=== PATIENT | female | born 1975 | race Caucasian/White ===

== ENCOUNTER 2020-12-30 13:50 | Emergency (ER) | payer OTHER, SELFPAY ==
[2020-12-30 14:04] VITALS: BP 116/75; PULSE 77; RESP 16; TEMP 36; O2SAT 99
--- NOTE | 2020-12-30 14:29 | ED.GENADULT ---
HPI - General Adult General Chief complaint: Urogenital-Female Stated complaint: uti Source: patient Mode of arrival: ambulatory Limitations: no limitations History of Present Illness HPI narrative: Plesant 45 y/o female. PMHx None reported. Presents to ED today with acute complaints of urinary frequency, urgency, and dysuria for the past 24 hours. She notes a history of UTI, and her manifestations feel very similar . No fever. No abdominal pain, flank pain, N/V. No vaginal discharge, pelvic pain, hematuria. Pt is without additional acute c/o illness upon exam. Related Data Allergies Allergy/AdvReac Type Severity Reaction Status Date / Time No Known Allergies Allergy Verified 12/30/20 14:11 Review of Systems Review of Systems: CONSTITUTIONAL: Denies fever, chills, sweats. EYES: Denies visual changes, redness, discharge. ENT: Denies rhinorrhea, congestion, sore throat, otalgia. CARDIOVASCULAR: Denies chest pain, palpitations, edema. RESPIRATORY: Denies dyspnea, wheezing, cough GASTROINTESTINAL: Denies abdominal pain, nausea, vomiting, diarrhea. GENITOURINARY: Positive dysuria and frequency. No hematuria, abnormal discharge SKIN: Denies rash or itching. MUSCULOSKELETAL: Denies acute back pain, joint pain, or myalgia. NEUROLOGIC: Denies numbness, or focal weakness. PSYCHIATRIC: Denies anxiety or depression. All systems reviewed & are unremarkable except as noted in HPI and below Exam Narrative: GENERAL: This is a well-nourished, well-developed adult, in no apparent distress. HEAD: normocephalic, atraumatic. EYES: PERRL. Sclera clear/white. EARS: External ears normal, auditory canals clear and without drainage, TMs normal. NOSE: External nose normal. Positive Rhinorrhea, no obstruction, nares patent. THROAT: Mucous membranes moist, posterior pharynx clear. No exudates. NECK: Neck supple, non-tender without lymphadenopathy, masses or thyromegaly. CARDIOVASCULAR: Regular rate and rhythm without murmurs, gallops, or rubs. RESPIRATORY: Clear to auscultation. Breath sounds equal bilaterally. No wheezes, rales, or rhonchi. GASTROINTESTINAL: Abdomen soft, non-tender, nondistended. Bowel sounds are active. No guarding. No CVA tenderness. SKIN: warm, intact with no suspicious lesions or rash, good texture and turgor. NEURO: Alert, active, and age appropriate. No focal neurologic deficits. EXTREMITIES: Negative. Course Vital Signs Vital signs: Vital Signs Temperature 36.0 C L 12/30/20 14:04 Pulse Rate 77 12/30/20 14:04 Respiratory Rate 16 12/30/20 14:04 Blood Pressure 116/75 12/30/20 14:04 Pulse Oximetry 99 12/30/20 14:04 Temperature 36.0 C L 12/30/20 14:04 Pulse Rate 77 12/30/20 14:04 Respiratory Rate 16 12/30/20 14:04 Blood Pressure 116/75 12/30/20 14:04 Pulse Oximetry 99 12/30/20 14:04 Medical Decision Making MDM Narrative Medical decision making narrative: -Urinary s/s for past 24 hours, noted history of UTI with similar issues. -Appears non-toxic. -Urine Dipstick positive for leukocytes, no gross hematuria. -Start Macrobid and Pyridium as directed, will send Urine for additional Cx. -PCP F/U 1 WK. -ER W/Emergent health status changes. Differential Diagnosis Differential Diagnosis: Differential Diagnosis: Consideration of the following conditions may be warranted for the presenting problem, they are not final diagnoses: Likely UTI, Cystitis, Nephrolithiasis, bacterial vaginosis, Nephritis, candidiasis, vaginitis, pyelonephritis, epididymitis, STD, or other. Vital Signs Vital Signs: Vital Signs Temperature 36.0 C L 12/30/20 14:04 Pulse Rate 77 12/30/20 14:04 Respiratory Rate 16 12/30/20 14:04 Blood Pressure 116/75 12/30/20 14:04 Pulse Oximetry 99 12/30/20 14:04 Temperature 36.0 C L 12/30/20 14:04 Pulse Rate 77 12/30/20 14:04 Respiratory Rate 16 12/30/20 14:04 Blood Pressure 116/75 12/30/20 14:04 Pulse Oximetry 99 12/30/20
== END 2020-12-30 14:31 | disposition home or self-care (01) ==
PROVIDERS: Emergency Provider Nurse Practitioner Adult Health
DX: N39.0 Urinary tract infection, site not specified (principal)
CPT/HCPCS: 81003; 87077; 87086; 87088; 87186; 99203; G0463

== ENCOUNTER 2021-07-16 15:52 | Emergency (ER) | payer OTHER, SELFPAY ==
[2021-07-16 16:09] VITALS: BP 117/83; PULSE 71; RESP 16; TEMP 36; O2SAT 100
--- NOTE | 2021-07-16 16:26 | ED.FEMALEGU ---
HPI - Female Genitourinary General Chief complaint: Urogenital-Female Stated complaint: Possible UTI Time Seen by Provider: 07/16/21 16:26 Source: patient Mode of arrival: ambulatory Limitations: no limitations History of Present Illness HPI Narrative: Heather Gonzalez is a 46 yo female with no PMH who come to express care with a couple bouts of frequency and burning that started today. She is leaving for [place] in the morning for work and wanted to be checked before she left Related Data Home Medications Medication Instructions Recorded Confirmed levonorgestrel [Mirena] See Rx Instructions .ROUTE .COMPLEX 07/16/21 07/16/21 Allergies Allergy/AdvReac Type Severity Reaction Status Date / Time No Known Allergies Allergy Verified 07/16/21 16:36 Review of Systems Review of Systems: CONSTITUTIONAL: Denies fever, chills, sweats. EYES: Denies visual changes, redness, discharge. ENT: Denies rhinorrhea, congestion, sore throat, otalgia. CARDIOVASCULAR: Denies chest pain, palpitations, edema. RESPIRATORY: Denies dyspnea, wheezing, cough GASTROINTESTINAL: Denies abdominal pain, nausea, vomiting, diarrhea. GENITOURINARY:Has dysuria, no hematuria, abnormal discharge SKIN: Denies rash or itching. NEUROLOGIC: Denies numbness, or focal weakness. PSYCHIATRIC: Denies anxiety or depression. PMFSH Past Medical History Medical History No acute medical problems Social History Social History (Updated 07/16/21 @ 16:31 by Zena Douglas CNP) Smoking status: Never smoker Alcohol intake: current Comments At time of signature, I agree with nursing past medical, surgical, social and family history. There is no relevant family history pertinent to the presenting complaint. Exam Narrative: GENERAL: This is a well-nourished, well-developed patient, in mild distress. HEAD: normocephalic, atraumatic. EYES: Sclera clear/white. Vision is grossly intact. EARS: External ears normal,. Hearing grossly intact. NOSE: External nose normal without nasal discharge, nares without redness, no rhinorrhea. THROAT: Mucous membranes x NECK: Neck supple, CARDIOVASCULAR: Regular rate and rhythm without murmurs, gallops, or rubs. RESPIRATORY: Clear to auscultation. Breath sounds equal bilaterally. No wheezes, rales, or rhonchi. GASTROINTESTINAL: Abdomen soft, SKIN: warm, intact with no suspicious lesions or rash, good texture and turgor. NEURO: awake, alert, and oriented to person, place and time. There were no obvious focal neurologic abnormalities. Steady gait EXTREMITIES: Normal range of motion. BACK: Nontender without deformity Course Course Emergency Course: Patient comes in complaining of dysuria that included frequency and some pressure that started today [place] negative but will treat for dysuria and started on Keflex 500 mg 1 twice daily x5 days Level of Care: Express Care Visit Vital Signs Vital signs: Vital Signs Temperature 96.8 F L 07/16/21 16:09 Pulse Rate 71 07/16/21 16:09 Respiratory Rate 16 07/16/21 16:09 Blood Pressure 117/83 07/16/21 16:09 Pulse Oximetry 100 07/16/21 16:09 Temperature 96.8 F L 07/16/21 16:09 Pulse Rate 71 07/16/21 16:09 Respiratory Rate 16 07/16/21 16:09 Blood Pressure 117/83 07/16/21 16:09 Pulse Oximetry 100 07/16/21 16:09 MDM - Female Genitourinary Differential Diagnosis Differential diagnosis: Likely urinary tract infection, cystitis and other Lab Data Labs: Urine Glucose Negative Reference Range: Negative Urine Bilirubin Negative Reference Range: Negative Urine Ketone Negative Reference Range: Negative Urine Specific [place] 1.025
== END 2021-07-16 16:35 | disposition home or self-care (01) ==
PROVIDERS: Emergency Provider Nurse Practitioner; PCP Nurse Practitioner
DX: R30.0 Dysuria (principal)
CPT/HCPCS: 81003; 99213; G0463

== ENCOUNTER 2022-06-06 14:04 | Emergency (ER) | payer OTHER, SELFPAY ==
[2022-06-06 14:17] VITALS: BP 149/74; PULSE 65; RESP 16; TEMP 36.4; O2SAT 98
--- NOTE | 2022-06-06 14:33 | ED.FEMALEGU ---
HPI - Female Genitourinary General Chief complaint: Urogenital-Female Stated complaint: uti symptoms Time Seen by Provider: 06/06/22 14:35 Source: patient, RN notes reviewed and old records reviewed Mode of arrival: ambulatory Limitations: no limitations History of Present Illness HPI Narrative: 46-year-old female who presents to Express Care with complaints urgency and frequency with urination over weekend which has progressed to include burning with urination. Patient states over the weekend she did take AZO for her symptoms. Patient is concerned for UTI she is leaving tomorrow for [place] for vacation.Patient reports that she has not had any fevers, chills or sweats, denies any nausea or vomiting. Patient reports past history of UTI's . Patient denies any CVA tenderness or any suprapubic pain. reports no concern for STD exposure. MD elicited complaint: UTI (symptoms) Pertinent past history: other (past UTI) Onset (ago): day(s) (3) Location of symptoms: perineum Related Data Home Medications Medication Instructions Recorded Confirmed levonorgestrel 21 mcg/24 hours (8 See Rx Instructions .Route .COMPLEX 07/16/21 06/06/22 yrs) 52 mg intrauterine device (Mirena) cetirizine 10 mg tablet 10 mg PO DAILY 06/06/22 06/06/22 Allergies Allergy/AdvReac Type Severity Reaction Status Date / Time No Known Allergies Allergy Verified 06/06/22 14:07 Review of Systems Review of Systems: CONSTITUTIONAL: Denies fever, chills, or sweats. CARDIOVASCULAR: Denies chest pain, palpitations, or edema. RESPIRATORY: Denies cough or dyspnea. GASTROINTESTINAL: Denies abdominal pain, nausea, vomiting, or diarrhea. GENITOURINARY: Reports dysuria, frequency, urgency. Denies flank pain or hematuria. SKIN: Denies rash or itching. MUSCULOSKELETAL: Denies back pain or myalgia. Denies CVA tenderness NEUROLOGIC: Denies headache All systems reviewed & are unremarkable except as noted in HPI and below PMFSH Past Medical History Medical History (Updated 06/06/22 @ 15:06 by Bhavani Mario NP) History of sinus problem Urinary tract infection Social History Social History (Updated 07/16/21 @ 16:31 by Zena Douglas, CONSUM[employer]IST) Smoking status: Never smoker Alcohol intake: current Comments At time of signature, agree with nursing past medical, surgical, social and family history. There is no relevant family history pertinent to the presenting complaint Exam Narrative: GENERAL: Well-appearing, well-nourished, and in no acute distress. HEAD: Normocephalic, atraumatic. NECK: Supple.no lymphadenopathy CHEST: Clear to auscultation. No respiratory distress.SAO2 98% on room air HEART: Regular rate and rhythm. No murmur heard. Normal peripheral pulses. ABDOMEN: Soft, nontender, nondistended, normal active bowel sounds. No CVA tenderness, denies any suprapubic pressure or pain, EXTREMITIES: Normal range of motion. No edema. SKIN: Warm, dry, no rash. NEURO: No focal deficits. Alert and oriented x3. Course Course Emergency Course: Patient is aware of diagnosis, understands and agrees to treatment plan.? Anticipatory guidance given.? Patient agrees to follow-up as directed and is aware of reasons to seek care at the emergency department. Portions of this record may have been created with voice recognition software Level of Care: Express Care Visit Vital Signs Vital signs: Vital Signs Temperature 36.4 C 06/06/22 14:17 Pulse Rate 65 06/06/22 14:17 Respiratory Rate 16 06/06/22 14:17 Blood Pressure 149/74 H 06/06/22 14:17 Pulse Oximetry 98 06/06/22 14:17 Oxygen Delivery Room Air 06/06/22 14:17 Temperature 36.4 C 06/06/22 14:17 Pulse Rate 65 06/06/22 14:17 Respiratory Rate 16 06/06/22 14:17 Blood Pressure 149/74 H 06/06/22 14:17 Pulse Oximetry 98 06/06/22 14:17 Oxygen Delivery Room Air 06/06/22 14:17 Reviewed MDM - Female Genitourinary MDM Narrative Medical decision making narrative: Exam f
== END 2022-06-06 14:54 | disposition home or self-care (01) ==
PROVIDERS: Emergency Provider Registered Nurse; PCP Nurse Practitioner
DX: N39.0 Urinary tract infection, site not specified (principal)
CPT/HCPCS: 81003; 87077; 87086; 87186; 99213; G0463

== ENCOUNTER 2022-11-30 17:10 | Emergency (ER) | payer OTHER, SELFPAY ==
[2022-11-30 17:27] VITALS: BP 120/80; PULSE 80; RESP 18; TEMP 36.6; O2SAT 100
--- NOTE | 2022-11-30 17:55 | ED.FEMALEGU ---
HPI - Female Genitourinary General Chief complaint: Urogenital-Female Stated complaint: uti symptoms Time Seen by Provider: 11/30/22 17:50 Source: patient and RN notes reviewed Mode of arrival: ambulatory Limitations: no limitations History of Present Illness HPI Narrative: Patient presents today complaining of dysuria, urgency, and malodorous urine that started this afternoon. Denies any additional symptoms to include abdominal pain, back pain. No recent antibiotic use. She has tried no [id number] treatment prior to arrival. Related Data Home Medications Medication Instructions Recorded Confirmed levonorgestrel 21 mcg/24 hours (8 See Rx Instructions .Route .COMPLEX 07/16/21 11/30/22 yrs) 52 mg intrauterine device (Mirena) Allergies Allergy/AdvReac Type Severity Reaction Status Date / Time No Known Allergies Allergy Verified 11/30/22 17:30 Review of Systems Review of Systems: CONSTITUTIONAL: Denies body aches, fever, chills, or sweats. EYES: Denies visual changes, redness, or discharge. ENT: Denies rhinorrhea, congestion, sore throat, or otalgia. CARDIOVASCULAR: Denies chest pain, palpitations, or edema. RESPIRATORY: Denies cough or dyspnea. GASTROINTESTINAL: Denies abdominal pain, nausea, vomiting, or diarrhea. GENITOURINARY: Denies hematuria.+ dysuria, urgency, malodorous urine SKIN: Denies rash, itching, or wounds. MUSCULOSKELETAL: Denies back pain, joint pain, or myalgia. NEUROLOGIC: Denies headache, numbness, tingling, or weakness. PSYCH: Denies depression or anxiety. [facility] Past Medical History Medical History History of sinus problem Urinary tract infection Social History Social History Smoking status: Never smoker Alcohol intake: current Comments At time of signature, I have reviewed and agree with nursing past medical, surgical, social and family history unless otherwise noted. Please see nursing chart for further information. There is no relevant family history pertinent to the presenting complaint Exam Narrative: GENERAL: Well-appearing, well-nourished, and in no acute distress. HEAD: Normocephalic, atraumatic. EYES: EOMI. No redness or drainage. Conjunctivae normal. ENT: Mucous membranes pink and moist. NECK: Normal AROM. CHEST: No respiratory distress. Clear to auscultation. HEART: Regular rate and rhythm. No murmur appreciated. ABDOMEN: Soft, nontender, nondistended, normal active bowel sounds. EXTREMITIES: Normal range of motion. No edema. SKIN: Warm, dry, no rash. Capillary refill normal. Normal skin turgor. NEURO: No focal deficits. Alert and oriented x3. Gait steady. PSYCH: Normal affect. No signs of depression or anxiety. Course Course Level of Care: Express Care Visit Vital Signs Vital signs: Vital Signs Temperature 97.9 F 11/30/22 17:27 Pulse Rate 80 11/30/22 17:27 Respiratory Rate 18 11/30/22 17:27 Blood Pressure 120/80 11/30/22 17:27 Pulse Oximetry 100 11/30/22 17:27 Oxygen Delivery Room Air 11/30/22 17:27 Temperature 97.9 F 11/30/22 17:27 Pulse Rate 80 11/30/22 17:27 Respiratory Rate 18 11/30/22 17:27 Blood Pressure 120/80 11/30/22 17:27 Pulse Oximetry 100 11/30/22 17:27 Oxygen Delivery Room Air 11/30/22 17:27 Reviewed MDM - Female Genitourinary MDM Narrative Medical decision making narrative: Urinalysis is suggestive of UTI. Will start patient on Keflex. Culture pending. Anticipatory guidance given Differential Diagnosis Differential diagnosis: Likely urinary tract infection, vaginitis and cystitis Lab Data Attestation: I reviewed the patient's lab results. Labs: Urine Glucose Negative Reference Range: Negative Urine Bilirubin Negative
== END 2022-11-30 18:00 | disposition home or self-care (01) ==
PROVIDERS: Emergency Provider Nurse Practitioner; PCP Nurse Practitioner
DX: N30.01 Acute cystitis with hematuria (principal)
CPT/HCPCS: 81003; 87077; 87086; 87186; 99213; G0463

== ENCOUNTER 2023-06-11 12:51 | Emergency (ER) | payer OTHER, SELFPAY ==
[2023-06-11 12:58] VITALS: BP 108/69; PULSE 91; RESP 16; TEMP 37.4; O2SAT 98
--- NOTE | 2023-06-11 13:00 | ED.URI ---
HPI - URI/Sore Throat General Chief Complaint: Upper Respiratory Infection Stated Complaint: Sore Throat and Cough Time Seen by Provider: 06/11/23 13:07 Source: patient, RN notes reviewed and old records reviewed Mode of arrival: ambulatory Limitations: no limitations History of Present Illness HPI Narrative: 47 year old female with complaints of cough and post nasal drainage for the past 11 days. Patient reports that cough is getting worse and she has some rib pain and also back pain with cough now. Patient reports that she has been taking Mucinex and also NyQuil for her symptoms. Patient reports history of past sinus infections and removal of sinus polyps and sinus surgery about 14 years ago. Patient denies any fevers no body aches or any nausea or vomiting or diarrhea. Patient denies any shortness of breath no tachypnea noted. MD elicited complaint: cough, rhinorrhea and nasal congestion Pertinent past history: sinusitis and other (sinus surgery) Onset (ago): day(s) (11) Consistency: constant Severity: moderate Pain scale (0-10): 4 Able to tolerate fluids by mouth: Yes Treatments prior to arrival: other (Mucinex and NyQuil) Related Data Home Medications Medication Instructions Recorded Confirmed levonorgestrel 21 mcg/24 hours (8 See Rx Instructions .Route .COMPLEX 07/16/21 06/11/23 yrs) 52 mg intrauterine device (Mirena) Allergies Allergy/AdvReac Type Severity Reaction Status Date / Time No Known Allergies Allergy Verified 06/11/23 12:53 Review of Systems Review of Systems: CONSTITUTIONAL: Denies malaise, chills, sweats, or fever. EYES: Denies visual changes, redness, or discharge. ENT: Reports rhinorrhea, congestion, sinus pain/pressure,no otalgia and some sore throat. CARDIOVASCULAR: Denies chest pain, palpitations, or edema.reports rib and back pain with cough RESPIRATORY: Reports cough.? Denies dyspnea. GASTROINTESTINAL: Denies abdominal pain, nausea, vomiting, diarrhea SKIN: Denies rash or itching. MUSCULOSKELETAL: Denies myalgia. NEUROLOGIC: Denies headache. All systems reviewed & are unremarkable except as noted in HPI and below PMFSH Past Medical History Medical History (Updated 06/12/23 @ 12:00 by Bhavani Mario NP) History of sinus problem Urinary tract infection Surgical History Surgical History (Updated 06/11/23 @ 13:33 by Bhavani Mario NP) H/O sinus surgery polyps removed and sinus cleaned out Social History Social History (Updated 06/12/23 @ 11:58 by Bhavani Mario NP) Smoking status: Never smoker Alcohol intake: current Substance use type: does not use Living arrangements: with family Gender identity (if verbalized by the patient): Female Comments At time of signature, agree with nursing past medical, surgical, social and family history. There is no relevant family history pertinent to the presenting complaint Exam Narrative: GENERAL: Well-appearing, well-nourished, and in no acute distress. HEAD: Normocephalic EYES: PERRLA, conjunctivae clear ENT: Nares clear, turbinates edematous and erythematous, clear discharge, facial pressure. Mucous membranes moist. TM pearly steel with dull light reflex bilaterally; no tragal tenderness. Oropharynx erythematous without lesions. Tonsils not enlarged and without exudate, no drooling, no hoarseness, no trismus, uvula midline. post nasal drainage NECK: Supple. No lymphadenopathy CHEST: rare wheeze noted but otherwise clear to auscultation, breath sounds equal. rare wheeze, no rhonchi, rales, or stridor. No respiratory distress, speaks in full sentences.cough,SAO2 98% on room air HEART: Regular rate and rhythm. No murmur heard. SKIN: Warm, dry, no rash. NEURO: Alert and oriented x3. PSYCH: Normal mood and affect Course Course Emergency Course: Patient is aware of diagnosis, understands and agrees to treatment plan.? Anticipatory guidance given.? Patient agrees to foll
== END 2023-06-11 13:21 | disposition home or self-care (01) ==
PROVIDERS: Emergency Provider Registered Nurse; PCP Nurse Practitioner
DX: J32.9 Chronic sinusitis, unspecified (principal); R05.9 Cough, unspecified
CPT/HCPCS: 99213; G0463

== ENCOUNTER 2023-09-09 15:36 | Emergency (ER) | payer OTHER, SELFPAY ==
--- NOTE | 2023-09-09 15:39 | ED.FEMALEGU ---
HPI - Female Genitourinary General Chief complaint: Urogenital-Female Stated complaint: Urogenital-Female Time Seen by Provider: 09/09/23 15:45 Source: patient and RN notes reviewed Mode of arrival: ambulatory Limitations: no limitations History of Present Illness HPI Narrative: 48-year-old female presents concern for dysuria, frequency, urgency for 2 days. Reports she took azo yesterday and this morning. She denies fever, body aches, chills, sweats, abdominal pain, nausea, vomiting, back pain. MD elicited complaint: UTI Related Data Home Medications Medication Instructions Recorded Confirmed levonorgestrel 21 mcg/24 hr (up to See Rx Instructions .Route .COMPLEX 07/16/21 09/09/23 8 years) 52 mg intrauterine device (Mirena) Allergies Allergy/AdvReac Type Severity Reaction Status Date / Time No Known Allergies Allergy Verified 09/09/23 15:37 Review of Systems Review of Systems: CONSTITUTIONAL: Denies malaise, chills, sweats, or fever. CARDIOVASCULAR: Denies chest pain, palpitations, or edema. RESPIRATORY: Denies cough or dyspnea. GASTROINTESTINAL: Denies abdominal pain, nausea, vomiting, diarrhea GENITOURINARY: Reports dysuria, frequency, urgency. Denies flank pain or hematuria. SKIN: Denies rash or itching. MUSCULOSKELETAL: Denies back pain or myalgia. All systems reviewed & are unremarkable except as noted in HPI and below PMFSH Past Medical History Medical History (Updated 09/09/23 @ 15:54 by Mary Nuñez NP) History of sinus problem Urinary tract infection Surgical History Surgical History (Updated 06/11/23 @ 13:33 by Bhavani Mario NP) H/O sinus surgery polyps removed and sinus cleaned out Social History Social History (Updated 06/12/23 @ 11:58 by Bhavani Mario NP) Smoking status: Never smoker Alcohol intake: current Substance use type: does not use Living arrangements: with family Gender identity (if verbalized by the patient): Female Comments At time of signature, agree with nursing past medical, surgical, social and family history. There is no relevant family history pertinent to the presenting complaint Exam Narrative: GENERAL: Well-appearing, well-nourished, and in no acute distress. HEAD: Normocephalic. EYES: PERRLA, conjunctivae clear. NECK: Supple. No lymphadenopathy CHEST: Clear to auscultation. No respiratory distress. HEART: Regular rate and rhythm. ABDOMEN: Soft, nontender upon palpation, nondistended, normal active bowel sounds, no palpable or pulsatile masses, no guarding. No CVA tenderness SKIN: Warm, dry, no rash. NEURO: Alert and oriented x3. PSYCH: Normal mood and affect Course Course Emergency Course: Patient is aware of diagnosis, understands and agrees to treatment plan. Anticipatory guidance given. Patient agrees to follow-up as directed and is aware of reasons to seek care at the emergency department. Portions of this record may have been created with voice recognition software Level of Care: Express Care Visit Vital Signs Vital signs: Reviewed. MDM - Female Genitourinary MDM Narrative Medical decision making narrative: Exam findings and UA show no acute concerns or changes; patient is non-toxic appearing and is in no distress. Patient is appropriate for outpatient treatment and follow-up. Differential Diagnosis Differential diagnosis: Likely urinary tract infection and cystitis Critical Care Time Critical Care Time Critical Care Time: No Discharge Plan Discharge Clinical Impression: Symptoms of urinary tract infection Patient Disposition: Home, Self-Care Condition: Stable Instructions: Antibiotic Form, Urinary Tract Infection in Women (ED) Additional Instructions: We will send a urine culture to the lab; if the culture identifies an organism that the prescribed antibiotic will not treat, you will receive a phone call from an urgent care staff member and an appropriate antibiotic will be pres
[2023-09-09 15:43] VITALS: BP 136/90; PULSE 66; RESP 16; TEMP 36.9; O2SAT 100
== END 2023-09-09 15:55 | disposition home or self-care (01) ==
PROVIDERS: Emergency Provider Nurse Practitioner; PCP Nurse Practitioner
DX: R30.0 Dysuria (principal); R35.0 Frequency of micturition; R39.15 Urgency of urination
CPT/HCPCS: 81003; 87077; 87086; 87088; 87186; 99213; G0463

== ENCOUNTER 2023-10-23 13:08 | Emergency (ER) | payer OTHER, SELFPAY ==
[2023-10-23 13:23] VITALS: BP 123/85; PULSE 78; RESP 16; TEMP 36.9; O2SAT 96
--- NOTE | 2023-10-23 13:37 | ED.FEMALEGU ---
HPI - Female Genitourinary General Chief complaint: Urogenital-Female Stated complaint: uti symptoms Source: patient and RN notes reviewed Mode of arrival: ambulatory Limitations: no limitations History of Present Illness HPI Narrative: 48 y/o female presented for c/o burning with urination today, and reports odor and urgency x2 days. Took uqora. Denies hematuria, nausea, vomiting, abdominal pain, flank pain, constipation, diarrhea, fevers or chills. Related Data Home Medications Medication Instructions Recorded Confirmed levonorgestrel 21 mcg/24 hr (up to See Rx Instructions .Route .COMPLEX 07/16/21 10/23/23 8 years) 52 mg intrauterine device (Mirena) Allergies Allergy/AdvReac Type Severity Reaction Status Date / Time No Known Allergies Allergy Verified 10/23/23 13:31 Review of Systems Review of Systems: CONSTITUTIONAL: Denies body aches, fever, chills, or sweats. CARDIOVASCULAR: Denies chest pain, palpitations, or edema. RESPIRATORY: Denies cough or dyspnea. GASTROINTESTINAL: Denies abdominal pain, nausea, vomiting, or diarrhea. GENITOURINARY: Reports dysuria, frequency, urgency, denies hematuria, flank pain SKIN: Denies rash, itching, or wounds. MUSCULOSKELETAL: Denies back pain or myalgia. [facility] Past Medical History Medical History History of sinus problem Urinary tract infection Surgical History Surgical History H/O sinus surgery polyps removed and sinus cleaned out Social History Social History Smoking status: Never smoker Alcohol intake: current Substance use type: does not use Living arrangements: with family Gender identity (if verbalized by the patient): Female Comments At time of signature, I have reviewed and agree with nursing past medical, surgical, social and family history unless otherwise noted. Please see nursing chart for further information. There is no relevant family history pertinent to the presenting complaint Exam Narrative: GENERAL: Well-appearing ENT: Mucous membranes pink and moist. NECK: Normal AROM. Supple. CHEST: No respiratory distress. Clear to auscultation. HEART: Regular rate and rhythm. ABDOMEN: Soft, nontender, nondistended, normal active bowel sounds. No CVA tenderness MUSCULOSKELETAL: No bony tenderness. SKIN: Warm, dry, no rash. NEURO: No focal deficits. Alert and oriented x3. Gait steady. PSYCH: Normal affect. Course Course Emergency Course: Patient is aware of diagnosis, understands and agrees to treatment plan. Anticipatory guidance given. Patient agrees to follow-up as directed and is aware of reasons to seek care at the emergency department. Portions of this record may have been created with voice recognition software Level of Care: Express Care Visit Vital Signs Vital signs: Vital Signs Temperature 98.4 F 10/23/23 13:23 Pulse Rate 78 10/23/23 13:23 Respiratory Rate 16 10/23/23 13:23 Blood Pressure 123/85 10/23/23 13:23 Pulse Oximetry 96 10/23/23 13:23 Oxygen Delivery Room Air 10/23/23 13:23 Temperature 98.4 F 10/23/23 13:23 Pulse Rate 78 10/23/23 13:23 Respiratory Rate 16 10/23/23 13:23 Blood Pressure 123/85 10/23/23 13:23 Pulse Oximetry 96 10/23/23 13:23 Oxygen Delivery Room Air 10/23/23 13:23 Reviewed MDM - Female Genitourinary MDM Narrative Medical decision making narrative: Discussed physical exam findings. Advised supportive measures and signs/symptoms to go to the ER. Pt is appropriate for outpt treatment and f/u. Differential Diagnosis Differential diagnosis: Likely urinary tract infection, vaginitis and cystitis Lab Data Labs: Lab Results 10/23/23 Range/Units 13:38 POC Urine Color Yellow POC Urine Clarity Cloudy POC Urine pH 7.5 POC Ur Specif [place] 1
[2023-10-23 13:44] LABS: EDUAAPPEAR Cloudy; EDUABILI Negative; EDUABLOOD Trace; EDUACOLOR1 Yellow; EDUAGLUCOSE Negative; EDUAKETONE Negative; EDUALEUKO 1+; EDUANITRATE Negative; EDUAPH 7.5; EDUAPROTEIN Negative; EDUASPGRAVITY 1.015; EDUAUROBILI 0.2
== END 2023-10-23 13:57 | disposition home or self-care (01) ==
PROVIDERS: Emergency Provider Nurse Practitioner Family; PCP Nurse Practitioner
DX: R30.0 Dysuria (principal)
CPT/HCPCS: 81003; 87077; 87086; 87186; 99213; G0463

== ENCOUNTER 2024-02-25 14:35 | Emergency (ER) | payer OTHER, SELFPAY ==
[2024-02-25 14:47] VITALS: BP 119/76; PULSE 77; RESP 18; TEMP 36.5; O2SAT 98
[2024-02-25 14:51] VITALS: BP 119/76; PULSE 77; RESP 18; TEMP 36.5; O2SAT 98
[2024-02-25 14:55] LABS: EDUAAPPEAR Cloudy; EDUABILI Negative (Negative); EDUABLOOD Trace (Negative); EDUACOLOR1 Yellow; EDUAGLUCOSE Negative (Negative); EDUAKETONE Negative (Negative); EDUALEUKO 3+ (Negative); EDUANITRATE Negative (Negative); EDUAPROTEIN 2+ (Negative); EDUAUROBILI 0.2
--- NOTE | 2024-02-25 14:57 | ED_ITS ---
HPI - Female Genitourinary General Chief complaint: Urogenital-Female Stated complaint: uti symptoms Time Seen by Provider: 02/25/24 14:53 Source: patient and RN notes reviewed Mode of arrival: ambulatory Limitations: no limitations History of Present Illness HPI Narrative: Patient presents today complaining of cloudy urine and dysuria that started this morning. Denies any additional symptoms to include fever, abdominal or back pain, hematuria. History of UTI. Review of previous urine culture shows E coli without resistance. Related Data Home Medications Medication Instructions Recorded Confirmed levonorgestrel 21 mcg/24 hr (up to See Rx Instructions .Route .COMPLEX 07/16/21 02/25/24 8 years) 52 mg intrauterine device (Mirena) multivit with minerals-iron 18 1 tablet PO DAILY 02/25/24 02/25/24 mg-folic ac 400 mcg-vit K 25 mcg tablet (Adults Multivitamin) progesterone micronized 100 mg 100 mg PO QAM 02/25/24 02/25/24 capsule testosterone 50 mg/5 gram (1 %) 1 tube transdermal QAM 02/25/24 02/25/24 transdermal gel Allergies Allergy/AdvReac Type Severity Reaction Status Date / Time No Known Allergies Allergy Verified 02/25/24 14:49 Review of Systems Review of Systems: CONSTITUTIONAL: Denies body aches, fever, chills, or sweats. EYES: Denies visual changes, redness, or discharge. ENT: Denies rhinorrhea, congestion, sore throat, or otalgia. CARDIOVASCULAR: Denies chest pain, palpitations, or edema. RESPIRATORY: Denies cough or dyspnea. GASTROINTESTINAL: Denies abdominal pain, nausea, vomiting, or diarrhea. GENITOURINARY: + dysuria, cloudy urine SKIN: Denies rash, itching, or wounds. MUSCULOSKELETAL: Denies back pain, joint pain, or myalgia. NEUROLOGIC: Denies headache, numbness, tingling, or weakness. PSYCH: Denies depression or anxiety. [facility] Past Medical History Medical History History of sinus problem Urinary tract infection Surgical History Surgical History H/O sinus surgery polyps removed and sinus cleaned out Social History Social History Smoking status: Never smoker Alcohol intake: current Substance use type: does not use Living arrangements: with family Gender identity (if verbalized by the patient): Female Comments At time of signature, I have reviewed and agree with nursing past medical, surgical, social and family history unless otherwise noted. Please see nursing chart for further information. There is no relevant family history pertinent to the presenting complaint Exam Narrative: GENERAL: Well-appearing, well-nourished, and in no acute distress. HEAD: Normocephalic, atraumatic. EYES: EOMI. No redness or drainage. Conjunctivae normal. ENT: Mucous membranes pink and moist. NECK: Normal AROM. CHEST: No respiratory distress. Clear to auscultation. HEART: Regular rate and rhythm. No murmur appreciated. ABDOMEN: Soft, nontender, nondistended, normal active bowel sounds. EXTREMITIES: Normal range of motion. No edema. SKIN: Warm, dry, no rash. Capillary refill normal. Normal skin turgor. NEURO: No focal deficits. Alert and oriented x3. Gait steady. PSYCH: Normal affect. No signs of depression or anxiety. Course Course Level of Care: Express Care Visit Vital Signs Vital signs: Vital Signs Temperature 97.7 F 02/25/24 14:47 Pulse Rate 77 02/25/24 14:47 Respiratory Rate 18 02/25/24 14:47 Blood Pressure 119/76 02/25/24 14:47 Pulse Oximetry 98 02/25/24 14:47 Oxygen Delivery Room Air 02/25/24 14:47 Temperature 97.7 F 02/25/24 14:51 Pulse Rate 77 02/25/24 14:51 Respiratory Rate 18 02/25/24 14:51 Blood Pressure 119/76 02/25/24 14:51 Pulse Oximetry 98 02/25/24 14:51 Oxygen Delivery Room Air 02/25/24 14:51 Reviewed MDM - Female Genitourinary MDM Narrative Medical decision making narrative: Urinalysis is consistent with UTI. Culture pending. Prescription for Augmentin and Pyridium sent to pharmacy. Anticipatory guidance given. ED precautions given Differential Diagnosis Differential diagnosis: Likely urinary tract infection, vaginitis and cystitis Lab Data Attestation: I reviewed the patient's lab results. Labs: Lab Results 02/25/24 Range/Units 14:53 POC Urine Color Yellow POC Urine Clarity Cloudy POC Urine pH 6.0 POC Ur Specif [place] 1.030 POC Urine Protein 2+ (Negative) POC Ur Glucose (UA) Negative (Negative) POC Urine Ketones Negative (Negative) POC Urine Blood Trace (Negative) POC Urine Nitrite Negative (Negative) POC Urine Bilirubin Negative (Negative) POC Urine Urobilinogen 0.2 POC U Leukocyte Esteras 3+ (Negative) Critical Care Time Critical Care Time Critical Care Time: No Discharge Plan Discharge Clinical Impression: Urinary tract infection Qualifiers: Urinary tract infection type: acute cystitis Hematuria presence: with hematuria Qualified Code(s): N30.01 - Acute cystitis with hematuria Patient Disposition: Home, Self-Care Condition: Stable Instructions: Antibiotic Form, Urinary Tract Infection in Women (DC) Additional Instructions: Your urine shows infection today. Take Augmentin as prescribed until gone. Your urine will be sent of for a culture to identify what type of bacteria is causing your infection. If the culture shows that your medication will not get rid of your infection, you will be notified and a new antibiotic will be called in for you. If your symptoms worsen to include fever, sweats, chills, nausea, vomiting, severe abdominal or back pain, please go to the ER for further evaluation. Prescriptions: New amoxicillin-pot clavulanate 875-125 mg tablet 1 tablet PO Q12H 7 Days Qty: 14 0RF phenazopyridine [Pyridium] 200 mg tablet 200 mg PO TID PRN (Reason: pain) Qty: 6 0RF No Action Mirena 20 mcg/24 hours (7 yrs) 52 mg Intrauterine Device See Rx Instructions .ROUTE .COMPLEX Rx Instructions: intrauterinely progesterone micronized 100 mg Capsule 100 mg PO QAM Rx Instructions: off 7 days; repeat cycle Adults Multivitamin 18 mg iron-400 mcg-25 mcg Tablet 1 tablet PO DAILY testosterone 50 mg/5 gram (1 %) Gel 1 tube TRANSDERMAL QAM Follow-up/Referrals: Alessandro,SHAMIR King [Primary Care Provider] - Time of Disposition: 15:02
== END 2024-02-25 15:07 | disposition home or self-care (01) ==
PROVIDERS: Emergency Provider Nurse Practitioner; PCP Nurse Practitioner
DX: N30.01 Acute cystitis with hematuria (principal); B96.20 Unspecified Escherichia coli [E. coli] as the cause of diseases classified elsewhere
CPT/HCPCS: 81003; 87086; 87186; 99213; G0463

== ENCOUNTER 2024-06-30 16:22 | Emergency (ER) | payer OTHER, SELFPAY ==
--- NOTE | 2024-06-30 16:24 | ED_ITS ---
HPI - Female Genitourinary General Chief complaint: Urogenital-Female Stated complaint: UTI symptoms Time Seen by Provider: 06/30/24 16:24 Source: patient Mode of arrival: ambulatory Limitations: no limitations History of Present Illness HPI Narrative: Patient is a 48-year-old female who presents with burning, urgency and frequency of urination. Patient was treated 2 weeks ago limb in May for UTIs while she was traveling. Last treatment course was back her bed. Patient states symptoms resolved for short amount of time and returned this morning. Denies any fever, chills, low back pain, nausea, vomiting, diarrhea. MD elicited complaint: dysuria Related Data Home Medications ?Medication ?Instructions ?Recorded ?Confirmed ?Last Taken ?Type levonorgestrel (Mirena) See Rx Instructions .Route .COMPLEX 07/16/21 02/25/24 Unknown History progesterone micronized 100 mg 100 mg PO QAM 02/25/24 02/25/24 Unknown History capsule testosterone 50 mg/5 gram (1 %) 1 tube transdermal QAM 02/25/24 02/25/24 Unknown History transdermal gel Allergies Allergy/AdvReac Type Severity Reaction Status Date / Time No Known Allergies Allergy Verified 06/30/24 16:53 Review of Systems Review of Systems: All systems reviewed & are unremarkable except as noted in HPI and below Constitutional: Constitutional: Denies chills, Denies fever(s), Denies headac he(s), Denies malaise and Denies weakness Eyes: Eyes: Denies change in vision, Denies eye discharge and Denies irritation ENT: Denies otalgia, Denies headache(s), Denies nasal congestion, Denies nasal discharge, Denies sinus pain and Denies sore throat Cardiovascular: Cardiovascular: Denies chest pain, Denies edema, Denies palpitations and Denies dyspnea Respiratory: Respiratory: Denies cough and Denies dyspnea Gastrointestinal: Gastrointestinal: Denies abdominal pain, Denies diarrhea, Denies nausea and Denies vomiting Genitourinary: Genitourinary: Denies hematuria, Reports nocturia, Reports dysuria, Denies flank pain and Reports urinary urgency Musculoskeletal: Musculoskeletal: Denies back pain and Denies numbness Integumentary/Breasts: Skin/Breast: Denies pruritus and Denies rash Neurologic: Denies headache(s), Denies numbness and Denies weakness Psychiatric: Psychiatric: Reports no additional psychiatric complaints Endocrine: Endocrine: Denies palpitations [facility] Past Medical History Medical History History of sinus problem Urinary tract infection Surgical History Surgical History H/O sinus surgery polyps removed and sinus cleaned out Social History Social History Smoking status: Never smoker Alcohol intake: current Substance use type: does not use Living arrangements: with family Gender identity (if verbalized by the patient): Female Comments At time of signature, agree with nursing past medical, surgical, social and family history. There is no relevant family history pertinent to the presenting complaint. Exam Const: General: cooperative, healthy appearing, comfortable, no acute distress and well nourished Nutritional Appearance: well nourished Orientation/consciousness: patient oriented x3 HENMT: Head: normocephalic and atraumatic Ears: external ears normal Face/Nose/Sinus: Normal external nose present, Normal nares present and normal facial exam Face and sinus: normal facial exam Eyes: General: appearance normal, both eyes and all related structures Pupils: Equal, round and reactive pupils present EOM: EOMs intact bilaterally Neck: Neck: normal visual inspection, full ROM and supple Chest: Chest palpation & inspection: normal inspection of the chest Resp: Effort & Inspection: normal respiratory effort and able to speak in complete sentences Cardio: Rate: regular rate Rhythm: regular rhythm GI: Inspection: normal to inspection GI Palp: No abdominal tenderness and Yes Soft to palpation : General: Yes no CVA tenderness Back/Spine/Pelvis: Back: no CVA tenderness Skin: General skin exam: normal color and no rashes or lesions noted Neuro: General: patient oriented x3 and moves all extremities Cranial nerves: Yes Equal, round and reactive pupils present Extrem: General: normal to inspection and full ROM Psych: Appearance: grossly normal and well kempt Course Course Emergency Course: Patient is aware of diagnosis, understands and agrees to treatment plan. Anticipatory guidance given. Patient agrees to follow-up as directed and is aware of reasons to seek care at the emergency department. Portions of this record may have been created with voice recognition software Level of Care: Express Care Visit Vital Signs Vital signs: Vital Signs Temperature 36.6 C 06/30/24 16:33 Pulse Rate 72 06/30/24 16:33 Respiratory Rate 18 06/30/24 16:33 Blood Pressure 122/83 06/30/24 16:33 Pulse Oximetry 99 06/30/24 16:33 Oxygen Delivery Room Air 06/30/24 16:33 Temperature 36.6 C 06/30/24 16:33 Pulse Rate 72 06/30/24 16:33 Respiratory Rate 18 06/30/24 16:33 Blood Pressure 122/83 06/30/24 16:33 Pulse Oximetry 99 06/30/24 16:33 Oxygen Delivery Room Air 06/30/24 16:33 Reviewed MDM - Female Genitourinary MDM Narrative Medical decision making narrative: Exam findings and UA show probable UTI; patient is non-toxic appearing and is in no distress. No CMT, adnexal tenderness, or evidence of pelvic etiology. Patient is appropriate for outpatient treatment and follow-up. Differential Diagnosis Differential diagnosis: Likely urinary tract infection, bacterial vaginosis, trichomoniasis, cervicitis, vaginitis and cystitis Medical Records Attestation: I reviewed the patient's medical records. Lab Data Attestation: I reviewed the patient's lab results. Labs: Lab Results 06/30/24 Range/Units 16:38 POC Urine Color Yellow POC Urine Clarity Cloudy POC Urine pH 6.5 POC Ur Specif [place] 1.020 POC Urine Protein Negative (Negative) POC Ur Glucose (UA) Negative (Negative) POC Urine Ketones Negative (Negative) POC Urine Blood Trace (Negative) POC Urine Nitrite Negative (Negative) POC Urine Bilirubin Negative (Negative) POC Urine Urobilinogen 2.0 POC U Leukocyte Esteras 2+ (Negative) Discharge Plan Discharge Clinical Impression: Urinary tract infection Qualifiers: Urinary tract infection type: acute cystitis Hematuria presence: without hematuria Qualified Code(s): N30.00 - Acute cystitis without hematuria Patient Disposition: Home, Self-Care Condition: Stable Instructions: Urinary Tract Infection in Women (ED) Additional Instructions: We will send a urine culture to the lab, based on your symptoms and urine dip we will start treatment today. If culture comes back and bacteria is not susceptible to antibiotic, your prescription may change. Your symptoms should improve within a day of starting antibiotics, but you should finish all the antibiotic pills you get. Otherwise your infection might come back Continue with increased water intake. Take Tylenol or ibuprofen as needed for pain or fever. Follow-up with primary care provider for urine recheck or see ER visit if condition worsens with high fever, nausea, vomiting, severe back pain Patient Language: Luxembourgish Prescriptions: New amoxicillin-pot clavulanate 875-125 mg tablet 1 tablet PO Q12H 7 Days Qty: 14 0RF No Action Mirena 20 mcg/24 hours (7 yrs) 52 mg Intrauterine Device See Rx Instructions .ROUTE .COMPLEX Rx Instructions: intrauterinely progesterone micronized 100 mg Capsule 100 mg PO QAM Rx Instructions: off 7 days; repeat cycle testosterone 50 mg/5 gram (1 %) Gel 1 tube TRANSDERMAL QAM Follow-up/Referrals: Alessandro,SHAMIR King [Primary Care Provider] - 3 Days Time of Disposition: 17:03
[2024-06-30 16:33] VITALS: BP 122/83; PULSE 72; RESP 18; TEMP 36.6; O2SAT 99
[2024-06-30 16:41] LABS: EDUAAPPEAR Cloudy; EDUABILI Negative (Negative); EDUABLOOD Trace (Negative); EDUACOLOR1 Yellow; EDUAGLUCOSE Negative (Negative); EDUAKETONE Negative (Negative); EDUALEUKO 2+ (Negative); EDUANITRATE Negative (Negative); EDUAPH 6.5; EDUAPROTEIN Negative (Negative)
--- OUTSIDE RECORDS SUMMARY | 2024-06-30 18:31 | XMS_ITS | Encounter Summary ---
Author Organization [facility] Address [address] [place] [id number] Care Team Providers Care Customer Associate Name Role Phone Candace Francois NP Primary Care Provider [phone] Encounter Details Date Type Department Care Team (Late st Contact Info) Description 01/20/2022 [employer] Message Enc [facility] Family Medicine - [place] [address] [place] [address] Vicky Monaco NP Referrral Social History Tobacco Use Types Packs/Day Years Used Date Smoking Tobacco: Never Smokeless Tobacco: Never Comments:The provider can pr ovide you with more information about quitting. Alcohol Use Standard Drinks/Week Comments Yes 0 (1 standard drink = 0.6 oz pur e alcohol) PHQ-2 Answer Date Recorded PHQ-2 Score - If the patient scores above 3, please move on to questions 3-9 0 01/20/2022 Comments No Sex and Gender Information Value Date Recorded Sex Assigned at Not on file Legal Sex Female 5:23 PM CDT Gender Identity Not on file Sexual Orientation Not on file COVID-19 Exposure Response Date Recorded In the last 10 days, have yo u been in contact with someone who was confirmed or suspected to have Coronavirus/COVID-19? No / Unsure 01/20/2022 9:02 AM CDT documented as of this encounter Plan of Treatment Not on file documented as of this encounter Visit Diagnoses Not on filedocumented in this encounter Additional Health Concerns Assessment Noted Time PHQ-9 Depression Total Score: 1 01/07/20 21 10:09 AM CDT documented as of this encounter Care Teams Customer Associate Relationship Specialty Start Date End Date Candace Francois NP [address] [place] [address] PCP - General NURSE PRACTITIONER 12/22/20 documented as of this encounter
--- OUTSIDE RECORDS SUMMARY | 2024-06-30 18:31 | XMS_ITS | Encounter Summary ---
Author Name [facility] [place] [place] Organization [place] Address [address] [place] [address] Care Team Providers Care Multimedia Authoring Specialist Name Role Phone LAZARO SALDIVAR Primary Care Provider Unavailabl e Selected Encounter This section includes the information on record at [place] for the Encounter. Date/Time Encounter Type Encounter Description Reason Provider Source Jun 20, 2024 01:31 PM Outpatient Encounter ADMIN PAT ACTIVTIES (MASNONCT) MAYELIN PERDOMO Encounter Template Text not used by [place] Plan of Treatment: Future Appointments (+ 6 months) and Future Tests (+/- 45 days) The Plan of Treatment section includes future care activities for the patient from all [place] treatmentfacilities. This section includes future appointments and future orders which are active, pending or scheduled. Future Appointments This section includes appointments that were scheduled to occur 6 months from the date of the Encounter, up to a maximum of 20 appointments. The data comes from all [place] treatment facilities. Appointment Date/Time Appointment Type Appointme nt Facility Name Jun 25, 2024 11:00 AM AMBULATORY - MEDICINE [facility] Aug 04, 2024 12:15 PM AMBULATORY - MEDICINE [facility] September 05, 2024 02:00 PM AMBULATORY - NONE [facility] Oct 31, 2024 09:30 AM AMBULATORY - MEDICINE [facility] Active, Pending, and Scheduled Orders This section includes a listing of several types of active, pending, and scheduled orders, including clinic medications orders, diagnostic test orders, procedure orders and consult orders; where the start date of the order is 45 days before the date of the Encounter or 45 days after the date of theEncounter. The data comes from all [facility]. Test Date/Time Test Type Test Details Facility Name Jun 24, 2024 02:31 PM Consult Order WHOLE HEAL TH TELESERVICES REPRESENTATIVE OUTPT STL Cons Planning Technician's [facility] Jun 24, 2024 02:33 PM Consult Order PT OUTPT S TL Cons Planning Technician's [facility] Jun 25, 2024 11:24 AM Consult Order PROSTHETIC S REQUEST - [facility] Reports: +/- 30 days of the encounter Radiology Reports For cases when an order for radiology services may have been completed prior to the date of the Encounter, the report list includes the Radiology Reports that were completed up to 30 days before dateof the Encounter. For cases when an order for radiology services may have been completed after the date of the Encounter, the report list also includes the Radiology Reports that were completed up to30 days after date of the Encounter. The data comes from all [facility]. Date/Time Radiology Report Provider Source Jun 25, 2024 11:35 AM KNEE,RIGHT 3 VIEWS : HEATHER LEIGH [id number] -[id number] F Exm Date: JUN 25, 2024@11:35 Req Phys: LAZARO SALDIVAR Pat Loc: SURY-OLV PACT W PCP (Req'g Lo Img Loc: -MAIN RADIOLOGY SUITE Service: Unknown Screen: Patient answered no [facility], [address] [place] [address] (Case [id number] COMPLETE) KNEE,RIGHT 3 VIEWS (RAD Detailed) CPT:79032 Proc Modifiers : RIGHT, LATERAL, Stand AP, [place] Reason for Study: right knee pain Clinical History: Report Status: Verified Date Reported: JUN 25, 2024 Date Verified: JUN 25, 2024 Ball Warper Tender E-Sig:/ES/KIKE GARCIA MD Report: Case #[id number]. Right knee examination. Finding: AP and lateral views of the right knee examination followed by sunrise view of the patella shows no fracture dislocation. No evidence of lytic or blastic bony lesion. No joint space narrowing or suprapatellar effusion. No radiopaque foreign body or abnormal calcification. Impression: Normal study. Primary Interpreting Staff: KIKE GARCIA MD, Staff Physician - Radiologist (Ball Warper Tender) /KIKE WRIGHT [facility] Jun 25, 2024 11:35 AM KNEE,LEFT, 3 VIEWS : HEATHER LEIGH [id number] -1975 F Exm Date: JUN 25, 2024@11:35 Req Phys: LAZARO SALDIVAR Pat Loc: SURY-OLV PACT WH W PCP (Req'g Lo Img Loc: -MAIN RADIOLOGY SUITE Service: Unknown Screen: Patient answered no [facility], [facility] [address] [place] [address] (Case [id number] COMPLETE) KNEE,LEFT, 3 VIEWS (RAD Detailed) CPT:15271 Proc Modifiers : LEFT, LATERAL, Stand AP, [place] Reason for Study: left knee pain Clinical History: Report Status: Verified Date Reported: JUN 25, 2024 Date Verified: JUN 25, 2024 Ball Warper Tender E-Sig:/ES/KIKE GARCIA MD Report: Case #[id number]. Left knee examination. Finding: AP and lateral views of the left knee examination followed by sunrise view of the patella shows no fracture dislocation. No evidence of lytic or blastic bony lesion. No joint space narrowing or suprapatellar effusion. No radiopaque foreign body or abnormal calcification. Impression: Normal study. Primary Interpreting Staff: KIKE GARCIA MD, Staff Physician - Radiologist (Ball Warper Tender) /KIKE WRIGHT [facility] Encounter Notes: All associated encounter notes This section contains the clinical notes associated to the Encounter. Date/Time Encounter Note(s) Provider Source Jun 20, 2024 01:31 PM PHYSICIAN LETTERS: LOCAL TITLE: NO CONTACT LETTER STL STANDARD TITLE: PHYSICIAN LETTERS DATE OF NOTE: JUN 20, 2024@13:31 ENTRY DATE: JUN 20, 2024@13:32:01 AUTHOR: BETZAIDA AMES EXP COSIGNER: URGENCY: STATUS: COMPLETED [facility] [address] [place] [address] JUN 20, 2024 HEATHER LEIGH [address] [place], [place] [address] Dear Heather Leigh, Thank you for choosing the [facility] as your primary choice for health care. As a partner in your health care, we are attempting to contact you because we have been unsuccessful in reaching you by phone to schedule your clinic appointment. Please call us at [phone], extension [phone] to speak to us regarding making an appointment in the [facility]. Your good health is important to us. Please contact us within 2 weeks from the date of this letter. If we do not hear from you, we will notify your referring provider and a new referral will be required to schedule an appointment. IMPORTANT: Due to COVID-19 we have greatly expanded our telehealth options, please contact the clinic to inquire about scheduling. Sincerely, BETZAIDA AMES [facility] LEIGH,BETZAIDA MARES [facility]
--- OUTSIDE RECORDS SUMMARY | 2024-06-30 18:31 | XMS_ITS | Clinical Summary ---
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 Gender Identity Not on file Sexual Orientation Not on file Plan of Treatment Health Maintenance Due Date Last Done Comments Hepatitis C Virus (HCV) Screening 1975 Colonoscopy 2022 Colorectal Cancer Screening 2022 Influenza Immunization (#1) 12/09/202302/07, 02/26/2020, 04/04/2019, Additional history exists SARS-COV-2 Immunization ( season) 2023 04/13/2021, 07/29/2020, 07/11/2020, Additional history exists Respiratory Syncytial Virus (RSV) Immunization (Adult) (1 - 1-dose 75+ series) 2052 Meningococcal Immunization (ACWY) Aged Out 03/09/2003 No longer eligible based on patient's age to complete this topic Hepatitis B Immunization Completed 008, 04/26/2007, 03/25/2007 Cervical Cancer Screening (CCS) Discontinued Pap Smear Discontinued 10/27/2011 DTaP/Tdap/Td Immunization Discontinued 11/28/2011, TdaP Immunization Completed 11/28/2011 HPV/Cotest Discontinued Pneumococcal Immunization Combined Aged Out No longer eligible based on patient's age to complete this topic Rotavirus Immunization Aged Out No lo nger eligible based on patient's age to complete this topic
--- OUTSIDE RECORDS SUMMARY | 2024-06-30 18:31 | XMS_ITS | Encounter Summary ---
Author Name [facility] [place] [facility] [place] Organization [facility] [place] Address [address] [place] [address] Care Team Providers Care Work Force Advisor Name Role Phone LAZARO SALDIVAR Primary Care Provider Unavailabl e Selected Encounter This section includes the information on record at [place] for the Encounter. Date/Time Encounter Type Encounter Description Reason Pro vider Source Mar 19, 2024 10:14 AM Outpatient Encounter ADMIN PAT ACTIVTIES (NEGINNONCT) IHE Encounter Template Text not used by [place] Plan of Treatment: Future Appointments (+ 6 months) and Future Tests (+/- 45 days) The Plan of Treatment section includes future care activities for the patient from all [place] treatmentfacilities. This section includes future appointments and future orders which are active, pending or scheduled. Future Appointments This section includes appointments that were scheduled to occur 6 months from the date of the Encounter, up to a maximum of 20 appointments. The data comes from all [place] treatment facilities. Appointment Date/Time Appointment Type Appointme nt Facility Name Apr 14, 2024 12:30 PM AMBULATORY - MEDICINE [facility] Apr 15, 2024 09:00 AM AMBULATORY - MEDICINE [facility] Apr 25, 2024 10:40 AM AMBULATORY - NONE [facility] May 01, 2024 08:00 AM AMBULATORY - NONE [facility] May 01, 2024 02:00 PM AMBULATORY - MEDICINE [facility] May 12, 2024 11:30 AM AMBULATORY - NONE [facility] May 29, 2024 11:00 AM AMBULATORY - NONE [facility] Ar[facility] Jun 02, 2024 11:30 AM AMBULATORY - NONE [facility] Jun 25, 2024 11:00 AM AMBULATORY - MEDICINE [facility] Julian [facility] Aug 04, 2024 12:15 PM AMBULATORY - MEDICINE [facility] September 05, 2024 02:00 PM AMBULATORY - NONE [facility] Active, Pending, and Scheduled Orders This section includes a listing of several types of active, pending, and scheduled orders, including clinic medications orders, diagnostic test orders, procedure orders and consult orders; where the start date of the order is 45 days before the date of the Encounter or 45 days after the date of theEncounter. The data comes from all [place] treatment facilities. Test Date/Time Test Type Test Details Facility Name May 01, 2024 12:00 AM Imaging - General Radiology Order KNEE,RIGHT 3 VIEWS RIGHT, LATERAL, [place], Stand AP [facility] Lab Results: +/- 30 days of the encounter This section includes the Chemistry and Hematology Lab Results on record with [place] for the patient. Radiology Reports and Pathology Reports are provided separately, in subsequent sections. Lab Results This section contains the Chemistry/Hematology Results that were resulted 30 days before or 30 daysafter the date of the Encounter. Date/Time Source Result Type Result - Unit Interpretation Reference Range Comment Apr 15, 2024 09:05 AM [facility] COMPREHENSIVE METABOLIC PANEL Specimen Type: PLASMA Comment: No hemolysis noted. Ordering Provider: LAZARO SALDIVAR Report Released Date/Time: Apr 14, 2024 01:03 PM Reporting Lab: [facility] [address] [facility] [phone] Performing Lab: [facility] [address] [facility] [phone] CREATININE 0.53 mg/dL L 0.6-1.1 UREA NITROGEN 15.5 mg/dL 9.0-25.0 GLUCOSE 82 mg/dL 72-99 SODIUM 138 meq/L 136-145 POTASSIUM 4.2 meq/L 3.5-5 CHLORIDE 103 meq/L 98-107 CARBON DIOXIDE 25 meq/L 22-31 CALCIUM 9.9 mg/dL 8.4-10.4 PROTEIN 8.1 g/dL 6-8.6 ALBUMIN 4.5 g/dL 3.4-5 TOTAL BILIRUBIN 0.9 mg/dL 0.2-1.2 ALKALINE PHOSPHATASE 78 U/L 40-150 AST/SGOT 58 U/L H 5-34 ALT/SGPT 42 U/L H 8-40 EGFR (CKD-EPI 2020) 115.4 >60 Apr 15, 2024 09:05 AM [facility] LIPID PANEL (STL) Specimen Type: PLASMA Comment: No hemolysis noted. Ordering Provider: LAZARO SALDIVAR Report Released Date/Time: Apr 14, 2024 01:03 PM Reporting Lab: [facility] [address] [place] [phone] Performing Lab: [address] [address] CHOLESTEROL 218 mg/dL H 0-200 TRIGLYCERIDE 98 mg/dL 0-150 CALCULATED LDL 129 mg/dL HDL(New) 69 mg/dL >40 Apr 15, 2024 09:05 AM [facility] CBC Specimen Type: BLOOD No comment entered. Ordering Provider: LAZARO SALDIVAR Report Released Date/Time: Apr 14, 2024 01:03 PM Reporting Lab: [facility] [address] [place] [phone] Performing Lab: [facility] [address] [place] [phone] WBC 3.4 10*3/uL L 3.6-11.2 RBC 3.98 10*6/uL 3.60-5.00 HGB 14.1 g/dL 11.0-14.9 HCT 40.2 32.6-43.4 MCV 101.0 fL H 80.0-100.0 MCH 35.4 pg H 27.0-34.0 MCHC 35.1 g/dL 33.0-36.0 PLT 210 10*3/uL 150-400 MPV 9.0 fL 7.5-11.2 RDW 11.3 L 11.8-15.1 LYMPHOCYTES, AUTO % 37 MONOCYTES, AUTO % 14 NEUTROPHILS, AUTO % 44 EOSINOPHILS, AUTO % 4 BASOPHILS, AUTO % 2 LYMPHOCYTES, ABSOLUTE 1.26 10*3/uL 0.77-4.50 MONOCYTES, ABSOLUTE 0.49 10*3/uL 0.19-0.80 NEUTROPHILS, ABSOLUTE 1.49 10*3/uL L 2.10-8.00 EOSINOPHILS, ABSOLUTE 0.12 10*3/uL 0.00-0.60 BASOPHILS, ABSOLUTE 0.05 10*3/uL 0.00-0.20 Apr 15, 2024 09:05 AM [facility] HGA1C Specimen Type: BLOOD No comment entered. Ordering Provider: LAZARO SALDIVAR Report Released Date/Time: Apr 14, 2024 01:03 PM Reporting Lab: [facility] [address] [place] [address] Performing Lab: [facility] [address] [place], [place] [phone] HGA1C 4.9 4.0-6.0 Apr 15, 2024 09:05 AM [facility] TSH W/ REFLEX FT4 (STL) Specimen Type: PLASMA No comment entered. Ordering Provider: LAZARO SALDIVAR Report Released Date/Time: Apr 14, 2024 01:03 PM Reporting Lab: [facility] [address] [place] [phone] Performing Lab: [facility] [address] [place], [place] [phone] TSH 1.623 u[IU]/mL 0.47-5 Apr 15, 2024 09:05 AM [facility] VITAMIN D, 25-HYDROXY Specimen Type: SERUM No comment entered. Ordering Provider: LAZARO SALDIVAR Report Released Date/Time: Apr 14, 2024 01:03 PM Reporting Lab: [facility] [address] [facility] [address] Performing Lab: [facility] [address] [place] [phone] VITAMIN D, 25-HYDROXY 65.1 ng/mL 30-96 Apr 15, 2024 09:05 AM [facility] URINALYSIS (STL-PB) Specimen Type: URINE No comment entered. Ordering Provider: LAZARO SALDIVAR Report Released Date/Time: Apr 14, 2024 01:06 PM Reporting Lab: [facility] [address] [facility] [address] Performing Lab: [facility] [address] [facility] [phone] URINE COLOR Light-Yellow Yellow U.BILIRUBIN Negative mg/dL Negative U.PH 7.0 5.0-8.0 APPEARANCE Clear Clear U.NITRITE Negative mg/dL Negative URN.GLUCOSE Normal mg/dL Negative URN.PROTEIN Negative mg/dL URN.UROBILINOGEN Normal mg/dL Normal URN.BLOOD Negative mg/dL Negative-Tra ce URN.KETONES Negative mg/dL Negative-Tra ce URN.LEUK.EST. Negative mg/dL Negative-Tra ce URN.SPECIFIC GRAVITY 1.018 Radiology Reports: +/- 30 days of the [...] the Encounter. The data comes from all [place] treatment facilities. Date/Time Radiology Report Provider Source Apr 15, 2024 08:32 AM SPINE LUMBOSACRAL 2 OR 3 VIEWS: GEE LEIGH [id number] -1975 F Exm Date: APR 15, 2024@08:32 Req Phys: LAZARO SALDIVAR Pat Loc: SURY-OLV VV PACT W PCP (Req'g L Img Loc: -MAIN RADIOLOGY SUITE Service: Unknown Screen: Patient answered no [facility] [address] [place] [address] (Case [id number] COMPLETE) SPINE LUMBOSACRAL 2 OR 3 VIEWS (RAD Detailed) CPT:03086 Reason for Study: low back pain with right sciatica Clinical History: Report Status: Verified Date Reported: APR 15, 2024 Date Verified: APR 15, 2024 Percussion Welding Machine Operator E-Sig:/ES/Robert Castellon MD Report: SPINE LUMBOSACRAL 2 OR 3 VIEWS CASE #: [id number] DATE:04/15/2024 9:27 AM CLINICAL HISTORY:low back pain with right sciatica COMPARISON: None currently available. TECHNIQUE: SPINE LUMBOSACRAL 2 OR 3 VIEWS Impression: FINDINGS/IMPRESSION: Facet arthropathy with disc height at L5-S1. Limbus type vertebral body at L5. No acute fracture. 5 nonrib-bearing lumbar vertebral bodies. Very slight levoconvex curvature. SI joints are neither ankylosed nor diastatic. Primary Interpreting Staff: Robert Castellon MD, Radiologist (Percussion Welding Machine Operator) /ROBERT SQUIRES [facility] Encounter Notes: All associated encounter notes This section contains the clinical notes associated to the Encounter. Date/Time Encounter Note(s) Provider Source Mar 19, 2024 10:14 AM ADMINISTRATIVE NOT E: LOCAL TITLE: ADMINISTRATIVE STL STANDARD TITLE: ADMINISTRATIVE NOTE DATE OF NOTE: MAR 19, 2024@10:14 ENTRY DATE: MAR 19, 2024@10:14:12 AUTHOR: CHARLOTTE SAINI EXP COSIGNER: URGENCY: STATUS: COMPLETED 03/19/24 Made 2nd attempt to contact no answer /jarrett/ CHARLOTTE SAINI ADVANCED MANAGER INTERNATIONAL Signed: 03/19/2024 10:14 CHARLOTTE SAINI [facility]
--- OUTSIDE RECORDS SUMMARY | 2024-06-30 18:31 | XMS_ITS | Encounter Summary ---
Author Name [facility] [place] Organization [facility] [place] Address [address] [place] [address] Care Team Providers Care Outside Sales Representative Name Role Phone JANNA LAZARO Primary Care Provider Unavailabl e Selected Encounter This section includes the information on record at [place] for the Encounter. Date/Time Encounter Type Encounter Description Reason Provider Source Jun 25, 2024 11:00 AM OFFICE O/P EST LOW 20 MIN COMP WMS HLTH GNDR DIVERSE PC ICD-10-CM M25.531 Pain in right wrist LAZARO SALDIVAR IHIesha Encounter Template Text not used by [place] Assessments - Encounter Diagnoses This section includes the primary and secondary diagnoses documented for the Encounter. Date/Time Primary/Secondary Diagnosis Diagnosis Name Provider Source Jun 25, 2024 01:16 PM PRIMARY Pain in right wrist LAZARO SALDIVAR [facility] Jun 25, 2024 01:16 PM SECONDARY Low back pain, unspecified LAZARO SALDIVAR [facility] Jun 25, 2024 01:16 PM SECONDARY Pain in unspecified knee LAZARO SALDIVAR [facility] Plan of Treatment: Future Appointments (+ 6 months) and Future Tests (+/- 45 days) The Plan of Treatment section includes future care activities for the patient from all [facility] treatmentfacilities. This section includes future appointments and future orders which are active, pending or scheduled. Future Appointments This section includes appointments that were scheduled to occur 6 months from the date of the Encounter, up to a maximum of 20 appointments. The data comes from all [place] treatment facilities. Appointment Date/Time Appointment Type Appointme nt Facility Name Aug 04, 2024 12:15 PM AMBULATORY - MEDICINE [facility] September 05, 2024 02:00 PM AMBULATORY - NONE [facility] Oct 31, 2024 09:30 AM AMBULATORY - MEDICINE [facility] Active, Pending, and Scheduled Orders This section includes a listing of several types of active, pending, and scheduled orders, including clinic medications orders, diagnostic test orders, procedure orders and consult orders; where the start date of the order is 45 days before the date of the Encounter or 45 days after the date of theEncounter. The data comes from all [place] treatment facilities. Test Date/Time Test Type Test Details Facility Name Jun 24, 2024 02:31 PM Consult Order WHOLE HEAL TH STOCK PATCH [facility]WYER OUTPT STL [facility] Jun 24, 2024 02:33 PM Consult Order PT OUTPT S TL [facility] Jun 25, 2024 11:24 AM Consult Order PROSTHETIC S REQUEST - [facility] Vital Signs: All taken on the encounter date This section contains inpatient and outpatient Vital Signs collected on the date of the Encounter. Date/Time Temperature Pulse Blood Pressure Respiratory Rate SP02 Pain Height Weight Body Mass Index Source Jun 25, 2024 11:32 AM 98.1 73 107/73 20 96 0 65 143 24 [facility] Social History: Smoking Status (Most current) and Tobacco Use (All prior to encounter date) This section includes the most current, and the historical, smoking and tobacco- related health factors from the [place] facility where the Encounter took place. Current Smoking Status This section includes the most current smoking, or tobacco-related health factor, from the [place] facility where the Encounter took place. Date/Time Current Smoking Status Comment Alfreda ity May 01, 2024 02:00 PM [place]-TOBACCO NEVER USED CIGARETTES [facility] Tobacco Use History This section includes a history of the smoking, or tobacco-related health factors, that were collected on or before the date of the Encounter. The data comes from the [place] facility where the Encounter took place. Date/Time Smoking Status/Tobacco Use Comment F acility May 01, 2024 02:00 PM [place]-TOBACCO NEVER USED OTHER TYPE [facility] Dec 20, 2020 01:00 PM [place]-TOBACCO NEVER USED [facility] Radiology Reports: +/- 30 days of the [...] the Encounter. The data comes from all [place] treatment facilities. Date/Time Radiology Report Provider Source Jun 25, 2024 11:35 AM KNEE,RIGHT 3 VIEWS : HEATHER LEIGH [id number] -[id number] F Exm Date: JUN 25, 2024@11:35 Req Phys: LAZARO SALDIVAR Loc: [facility] PACT WH W PCP (Req'g Lo Img Loc: -MAIN RADIOLOGY SUITE Service: Unknown Screen: Patient answered no [facility], [facility] [address] [place] [address] (Case [id number] COMPLETE) KNEE,RIGHT 3 VIEWS (RAD Detailed) CPT:27843 Proc Modifiers : RIGHT, LATERAL, Stand AP, [place] Reason for Study: right knee pain Clinical History: Report Status: Verified Date Reported: JUN 25, 2024 Date Verified: JUN 25, 2024 Admission Liaison E-Sig:/ES/KIKE GARCIA MD Report: Case #[id number]. Right [...] KIKE GARCIA MD, Staff Physician - Radiologist (Admission Liaison) /KIKE WRIGHT [facility] Jun 25, 2024 11:35 AM KNEE,LEFT, 3 VIEWS : HEATHER LEIGH [id number] -[id number] F Exm Date: JUN 25, 2024@11:35 Req Phys: LAZARO SALDIVAR Loc: -OL PACT WH W PCP (Req'g Lo Img Loc: -MAIN RADIOLOGY SUITE Service: Unknown Screen: Patient answered no [facility] [address] [place] [address] (Case [id number] COMPLETE) KNEE,LEFT, 3 VIEWS (RAD Detailed) CPT:80338 Proc Modifiers : LEFT, LATERAL, Stand AP, [place] Reason for Study: left knee pain Clinical History: Report Status: Verified Date Reported: JUN 25, 2024 Date Verified: JUN 25, 2024 Admission Liaison E-Sig:/ES/KIKE GARCIA MD Report: Case #[id number]. Left [...] KIKE GARCIA MD, Staff Physician - Radiologist (Admission Liaison) /KIKE WRIGHT [facility] Encounter Notes: All associated encounter notes This section contains the clinical notes associated to the Encounter. Date/Time Encounter Note(s) Provider Source Jun 26, 2024 01:08 PM PHYSICIAN LETTERS: LOCAL TITLE: TEST RESULT GENERAL LETTER ST STANDARD TITLE: PHYSICIAN LETTERS DATE OF NOTE: JUN 26, 2024@13:08 ENTRY DATE: JUN 26, 2024@13:08:46 AUTHOR: LAZARO SALDIVAR EXP COSIGNER: URGENCY: STATUS: COMPLETED [facility] [address] [place] [address] JUN 26, 2024 HEATHER LEIGH [address], [place] [address] Dear Heather Leigh, I would like to update you on your recent test results. OTHER TEST RESULTS RADIOLOGY (NON-INVASIVE TEST RESULTS): right knee xray: Finding: AP and lateral views of the right knee examination followed by sunrise view of the patella shows no fracture dislocation. No evidence of lytic or blastic bony lesion. No joint space narrowing or suprapatellar effusion. No radiopaque foreign body or abnormal calcification. Impression: Normal study. left knee xray: Finding: AP and lateral views of the left knee examination followed by sunrise view of the patella shows no fracture dislocation. No evidence of lytic or blastic bony lesion. No joint space narrowing or suprapatellar effusion. No radiopaque foreign body or abnormal calcification. Impression: Normal study. FUTURE APPOINTMENTS: 08/04/2024 12:15 [facility]-GI/ENDO LAB ANESTHESIA 09/05/2024 14:00 [facility]-ST CLR HW CHIRO A CONS 10/31/2024 09:30 [facility]-OLV PACT WH W PCP Sincerely, LAZARO SALDIVAR [facility] Jun 25, 2024 01:09 PM PRIMARY CARE NOTE: LOCAL TITLE: PRIMARY CARE PROVIDER ESTABLISHED VISIT [facility] STANDARD TITLE: PRIMARY CARE NOTE DATE OF NOTE: JUN 25, 2024@13:09 ENTRY DATE: JUN 25, 2024@13:09:22 AUTHOR: LAZARO SALDIVAR EXP COSIGNER: URGENCY: STATUS: COMPLETED REASON FOR VISIT/CHIEF COMPLAINT: Routine HPI: presents today for routine visit. She complains of bilat knee pain, low back pain and right wrist pain that radiates from pinky finger to ulnar side of elbow. She is left handed. She took a Medrol dose pack and that did help at the time. Acupuncture didn't help with LBP so she would like to try chiro and PT. SOURCE(S) OF HISTORY: Patient PAST MEDICAL HISTORY: 1) Snoring 2) Exposure to potentially hazardous substance ([facility] [id number]) comment: Entered automatically through ALLAN Problem List documentation prog ALLERGIES: Patient has answered NKA ALLERGY REVIEW: Allergy list reviewed and remains current. MEDICATIONS: Active and Recently Outpatient Medications (excluding Supplies): Active Outpatient Medications Status = 1) BISACODYL 5MG EC TAB TAKE TWO TABLETS BY MOUTH ONE TIME TAKE ACTIVE BISACODYL TABLETS AT 4PM ON AFTERNOON PRIOR TO TEST. CALL [phone] WITH ANY QUESTIONS ABOUT THESE INSTRUCTIONS. MAIL Indication: Bowel Emptying 2) COLON ELECTROLYTE LAVAGE PWD FOR SOLN MIX AND DRINK CONTENTS ACTIVE OF BOTTLE BY MOUTH DIRECTED (THE DAY BEFORE YOUR TEST ONLY DRINK CLEAR LIQUIDS-NO SOLID FOOD! TAKE THE BISACODYL TABLETS AT 4PM AND MIX THE GOLYTELY WITH WATER AND REFRIGERATE. AT 7PM DRINK HALF OF THE GOLYTELY. REFRIGERATE OVERNIGHT. COMPLETE GOLYTELY 3 HRS BEFORE LEAVING HOME FOR TEST. READ YOUR INSTRUCTIONS!) Indication: Bowel Emptying 3) MELOXICAM 15MG TAB TAKE ONE TABLET BY MOUTH ONCE A DAY ACTIVE (S) Indication: FOR OSTEOARTHRITIS 4) SIMETHICONE 80MG CHEW TAB CHEW AND SWALLOW FOUR TABLETS BY ACTIVE MOUTH DIRECTED FOR TWO DOSES BEFORE GI PROCEDURE Indication: FOR GAS DISCOMFORT Inactive Outpatient Medications Status = 1) METHYLPREDNISOLONE 4MG TAB DOSEPAK,21 TAKE TABLETS BY MOUTH DIRECTED TAKE 6 TABLETS BY MOUTH ON DAY ONE, THEN DECREASE BY ONE TABLET DAILY UNTIL GONE. TAKE WITH FOOD. Indication: FOR INFLAMMATION 5 Total Medications MEDICATION RECONCILIATION: I have reviewed the patient's medication list with the patient and/or his/her care-mushroom growing supervisor. Handwritten corrections, additions and/or deletions were made to the list. Corrected Outpatient Medication List was provided to the patient/caregiver. LMP: PAP:05/03 G P Contraceptive management: Sexual Activity: yes STD's:denies concerns mammography:05/03 HRT: family history of breast or CRIMINAL LEGAL ASSISTANT cancer: non-contributory hysterectomy: REVIEW OF SYSTEMS: General: Denies fever or chills, and unexplained weight loss Ears, Nose, Mouth, Throat: Denies hearing loss, nasal drainage or sore throat Endo: Denies heat or cold intolerance, polydipsia, polyuria, or polyphagia Cardiovascular: Denies chest pain, palpitations, or dizziness Respiratory: Denies SOB, cough, sputum, and wheezing ABD/GI: Denies abdominal pain, N/V/D, constipation, heartburn, anorexia, dysphagia, hematochezia, melena, or flatulence Musculoskeletal/Extremities: + joint swelling/stiffness/pain, +back pain, neck pain and edema /CRIMINAL LEGAL ASSISTANT: Denies dysuria, flank pain, frequency, hesitancy, urgency, or hematuria Psych: Denies depression, anxiety, insomnia, SI/HI Neuro: Denies weakness, numbness, syncope, dizziness, BARNETT, tremors, +neuropathy Skin: Denies rashes, skin lesions PHYSICAL EXAMINATION: VITALS (most recent, as listed in the electronic record): Temperature: 98.1 F [36.7 C] (06/25/2024 11:32) BP: 107/73 (06/25/2024 11:32) Pulse: 73 (06/25/2024 11:32) Resp: 20 (06/25/2024 11:32) PulsOx: 96% (06/25/2024 11:32) Pain: 0 (06/25/2024 11:32) Weight: Measurement DT WEIGHT LB(KG)[BMI] 06/25/2024 11:32 143(64.86)[24] 05/01/2024 13:57 147.2(66.77)[24] General: pleasant, well appearing adult female in no apparent distress HEENT: mucus membranes moist, PERRL, EOMI Neck: supple, no lymphadenopathy or thyromegaly, no carotid bruits Heart: regular rate and rhythm; no murmurs, rubs, or gallops Lungs: respirations regular and non-labored; CTA BL; no wheezes, rhonchi, or rales Extremities: warm, well-perfused; no clubbing, cyanosis, or edema; right wrist pain with radiation to ulnar groove of right elbow. FROM Skin: no rashes or lesions noted; good turgor Neuro: A&O x 3, gait steady and normal-based, CN II-XI intact Psych: appropriate mood and affect DATA REVIEW: HGA1C 4.9 % 04/15/2024 09:05 Lipid Panel: TRIGLYCERIDE 98 mg/dL 04/15/2024 09:05 CHOLESTEROL 218 H mg/dL 04/15/2024 09:05 HDL(New) 69 mg/dL 04/15/2024 09:05 CALCULATED LDL 129 mg/dL 04/15/2024 09:05 CMP: SODIUM 138 mEq/L 04/15/2024 09:05 POTASSIUM 4.2 mEq/L 04/15/2024 09:05 CHLORIDE 103 mEq/L 04/15/2024 09:05 UREA NITROGEN 15.5 mg/dL 04/15/2024 09:05 CREATININE 0.53 L mg/dL 04/15/2024 09:05 CALCIUM 9.9 mg/dL 04/15/2024 09:05 PROTEIN 8.1 g/dL 04/15/2024 09:05 ALBUMIN 4.5 g/dL 04/15/2024 09:05 ALKALINE PHOSPHATASE 78 U/L 04/15/2024 09:05 ALT/SGPT 42 H U/L 04/15/2024 09:05 AST/SGOT 58 H U/L 04/15/2024 09:05 TOTAL BILIRUBIN 0.9 mg/dL 04/15/2024 09:05 CARBON DIOXIDE 25 mEq/L 04/15/2024 09:05 GLUCOSE 82 mg/dL 04/15/2024 09:05 EGFR (CKD-EPI 2020) 115.4 04/15/2024 09:05 CBC: WBC 3.4 L 10*3/uL 04/15/2024 09:05 RBC 3.98 10*6/uL 04/15/2024 09:05 HGB 14.1 g/dL 04/15/2024 09:05 HCT 40.2 % 04/15/2024 09:05 MCV 101.0 H fL 04/15/2024 09:05 MCH 35.4 H pg 04/15/2024 09:05 MCHC 35.1 g/dL 04/15/2024 09:05 RDW 11.3 L % 04/15/2024 09:05 PLT 210 10*3/uL 04/15/2024 09:05 MPV 9.0 fL 04/15/2024 09:05 NEUTROPHILS, AUTO % 44 % 04/15/2024 09:05 LYMPHOCYTES, AUTO % 37 % 04/15/2024 09:05 MONOCYTES, AUTO % 14 % 04/15/2024 09:05 EOSINOPHILS, AUTO % 4 % 04/15/2024 09:05 BASOPHILS, AUTO % 2 % 04/15/2024 09:05 NEUTROPHILS, ABSOLUTE 1.49 L 10*3/uL 04/15/2024 09:05 LYMPHOCYTES, ABSOLUTE 1.26 10*3/uL 04/15/2024 09:05 MONOCYTES, ABSOLUTE 0.49 10*3/uL 04/15/2024 09:05 EOSINOPHILS, ABSOLUTE 0.12 10*3/uL 04/15/2024 09:05 BASOPHILS, ABSOLUTE 0.05 10*3/uL 04/15/2024 09:05 PSA: No PSA EO data found Result: Acceptable Follow-up Action: labs ordered___ Data results reviewed with patient and/or caregiver. ASSESSMENT/PLAN: 1) right wrist pain: Start meloxicam and bracing at night 2) LBP: Start chiro and PT. Start meloxicam 3) bilat knee pain: xrays ordered HEALTH MAINTENANCE: CRC screen - age 45 - 75 for average risk No PSA (LAST 10 5Y) EO data found age 45 - 75 for average risk ADMINISTERED Immunization Series Date Facility Reaction Info COVID-19 (iSnap), MRNA, LNP-S, * 1 2020 [facility] * INFLUENZA, SPLIT VIRUS, TRIVALEN* C 04/15/2024 [facility]* CONTRAINDICATED No data available REFUSED ======= Immunization Date Facility Info COVID-19 (iSnap), MRNA, LNP-S, * 06/25/2024 [facility]* <I> COVID-19 (iSnap), MRNA, LNP-S, * 05/01/2024 [facility]* <I> <I> See the Detailed Immunizations Health Summary Component[DIM] for Additional Information * Value is truncated; see the Detailed Immunizations Health Summary Component[DIM] for complete text Return to clinic 6 months and sooner PRN SUMMARY STATEMENT: Plan of care has been discussed with including expected therapeutic benefits and potential side effects of prescribed medication and treatments. verbalizes understanding and is in agreement with the plan of care. Patient was instructed to keep all scheduled appointments and contact gear tooth lapping machine operator for any additional problems. /jarrett/ LAZARO SALDIVAR Staff Physician Signed: 06/25/2024 13:16 LAZARO SALDIVAR [facility] Jun 25, 2024 11:10 AM NURSING NOTE: LOCAL TITLE: V15 PACT FACE TO FACE NOTE STL STANDARD TITLE: NURSING NOTE DATE OF NOTE: JUN 25, 2024@11:10 ENTRY DATE: JUN 25, 2024@11:38:15 AUTHOR: MONTANA HANEY COSIGNER: URGENCY: STATUS: COMPLETED Provider Visit: Patient Identifiers : Full Name Date of Reason for visit: Established Follow-Up BILATERAL KNEE PAIN, RIGHT HAND PAIN Mode of Arrival: Ambulatory Allergy Review: Patient has answered NKA Allergy list reviewed and remains current. Recent Vital Signs: Temperature: 98.1 F [36.7 C] (06/25/2024 11:32) Pulse: 73 (06/25/2024 11:32) Respiration: 20 (06/25/2024 11:32) B/P: 107/73 (06/25/2024 11:32) Pain: 0 (06/25/2024 11:32) Wt: 143 lb [64.86 kg] (06/25/2024 11:32) Ht: 65 in [165.1 cm] (06/25/2024 11:32) BMI: 23.8 POX: 96% (06/25/2024 11:32) Would you like to discuss any personal problem, family problem, alcohol use, drug use, or a mental or emotional illness? No My [facility] ([facility]), please select appointment type: Face to face: Yes- Done Contact provided Primary Care phone number and encouraged to call if any questions or concerns. Review that after hours nurse line [phone] and emergency room are available 30/10 for patient use. Contact verbalized good understanding. COVID-19 Immunization - L,N,P,PH,U: Refused Pfizer Monovalent COVID-19 vaccine Immunization: COVID-19 (PFIZER), MRNA, LNP-S, PF, MARVIN-SUCROSE, 30 MCG/0.3 ML (AGES 12+ YEARS) Refusal Reason: PATIENT DECISION Patient refuses all immunization(s) in the COVID-19 group Date Documented: 06/25/24 11:39 PC [facility] - PHP MAP: PERSONAL HEALTH PLAN INVENTORY & MAP [place]'s Response: PAIN RELIEF /es/ MONTANA HANEY LPN LICENSED PRACTICAL NURSE Signed: 06/25/2024 11:52 MONTANA HANEY [facility]
--- OUTSIDE RECORDS SUMMARY | 2024-06-30 18:31 | XMS_ITS | Encounter Summary ---
Author Name [facility] [place] Organization [place] Address [address] [place] [address] Care Team Providers Care Senior Web Applications Developer Name Role Phone LAZARO SALDIVAR Primary Care Provider Unavailabl e Selected Encounter This section includes the information on record at [place] for the Encounter. Date/Time Encounter Type Encounter Description Reason Provider Source Mar 11, 2024 02:01 PM Outpatient Encounter ADMIN PAT ACTIVTIES (MASNONCT) CHARLOTTE SAINI Iesha Encounter Template Text not used by [place] Plan of Treatment: Future Appointments (+ 6 months) and Future Tests (+/- 45 days) The Plan of Treatment section includes future care activities for the patient from all [place] treatmentfacilities. This section includes future appointments and future orders which are active, pending or scheduled. Future Appointments This section includes appointments that were scheduled to occur 6 months from the date of the Encounter, up to a maximum of 20 appointments. The data comes from all [place] treatment facilities. Appointment Date/Time Appointment Type Appointme nt Facility Name Apr 14, 2024 12:30 PM AMBULATORY - MEDICINE [facility] Apr 15, 2024 09:00 AM AMBULATORY - MEDICINE [facility] Apr 25, 2024 10:40 AM AMBULATORY - NONE [facility] May 01, 2024 08:00 AM AMBULATORY - NONE [facility] May 01, 2024 02:00 PM AM[facility]ULATORY [facility]ICINE [facility] May 12, 2024 11:30 AM [facility] NONE [facility] May 29, 2024 11:00 AM AMBULATORY - NONE [facility] Jun 02, 2024 11:30 AM [facility] NONE [facility] Jun 25, 2024 11:00 AM AMBULATORY - MEDICINE [facility] Aug 04, 2024 12:15 PM AMBULATORY - MEDICINE V[facility] September 05, 2024 02:00 PM [facility] NONE [facility] Encounter Notes: All associated encounter notes This section contains the clinical notes associated to the Encounter. Date/Time Encounter Note(s) Provider Source Mar 11, 2024 02:06 PM PHYSICIAN LETTERS: LOCAL TITLE: NO CONTACT LETTER STL STANDARD TITLE: PHYSICIAN LETTERS DATE OF NOTE: MAR 11, 2024@14:06 ENTRY DATE: MAR 11, 2024@14:06:58 AUTHOR: CHARLOTTE SAINI EXP COSIGNER: URGENCY: STATUS: COMPLETED [facility] [address] [place] [address] MAR 11, 2024 HEATHER LEIGH [address], [place] [address] Dear Heather Leigh, Thank you for choosing the [facility] as your primary choice for health care. As a partner in your health care, we are attempting to contact you because we have been unsuccessful in reaching you by phone to schedule your clinic appointment. Please call us at [phone], extension [phone] to speak to us regarding making an appointment in the [facility]. Health Registry clinic. Your good health is important to [...] the clinic to inquire about scheduling. Sincerely, CHARLOTTE SAINI ADVANCED GEAR CUTTER HEATHER LEIGH CEDRIC D [facility] Mar 11, 2024 02:01 PM ADMINISTRATIVE NOT E: LOCAL TITLE: ADMINISTRATIVE STL STANDARD TITLE: ADMINISTRATIVE NOTE DATE OF NOTE: MAR 11, 2024@14:01 ENTRY DATE: MAR 11, 2024@14:01:28 AUTHOR: CHARLOTTE SAINI EXP COSIGNER: URGENCY: STATUS: COMPLETED 03/11/24 Made attempt to contact no answer/left message. Sent/emailed [place] letter /jarrett/ CHARLOTTE SAINI ADVANCED GEAR CUTTER Signed: 03/11/2024 14:02 CHARLOTTE SAINI [facility]
--- OUTSIDE RECORDS SUMMARY | 2024-06-30 18:31 | XMS_ITS | Clinical Summary ---
Author Organization [facility] Address [address] [place] [address] Phone Care Team Providers Care Operations Administrative Assistant Name Role Phone Unavailable Primary Care Provider Unavailabl e Allergies No known active allergies Medications OTHER Apply 1 Application to affected area daily. Testosterone/pro gesterone Active multivitamin (DAILY-KAEL) tablet Take 1 Tablet by mouth daily. Active COLLAGEN MISC 1 Tablet by Misc.(Non-Drug; Combo Route) route daily. Active Encounters Date Type Department Care Team Description 05/28/2024 External Device Data [facility]STRACTION Provider, Abstract 05/01/2024 External Device Data [facility] Provider, Abstract from Last 3 Months Social History Tobacco Use Types Packs/Day Years Used Date Smoking Tobacco: Never Smokeless Tobacco: Never Tobacco Cessation:Counseling Given: Not Answered Alcohol Use Standard Drinks/Week Comments Yes 6 (1 standard drink = 0.6 oz pur e alcohol) only on weekends Feeling Safe Answer Date Recorded Are you in a relationship wi th someone who hurts you emotionally and/or physically? No 06/01/2023 Comments No Sex and Gender Information Value Date Recorded Sex Assigned at Not on file Legal Sex Female 2:50 AM PLACING JUDGE Gender Identity Not on file Sexual Orientation Not on file Last Filed Vital Signs Vital Sign Reading Time Taken Comments Blood Pressure 125/86 06/01/2023 4:05 PM PLACING JUDGE Pulse 84 06/01/2023 4:05 PM PLACING JUDGE Temperature 36.5 C (97.7 F) 06/01/2023 3:50 PM PLACING JUDGE Respiratory Rate 16 06/01/2023 4:05 PM PLACING JUDGE Oxygen Saturation 100% 06/01/2023 4:05 PM PLACING JUDGE Inhaled Oxygen Concentration - - Weight 65.3 kg (144 lb) 05/29/2023 8:47 AM PLACING JUDGE Height 167.6 cm (5' 6 ) 05/29/2023 8:47 AM PLACING JUDGE Body Mass Index 23.24 05/29/2023 8:47 AM PLACING JUDGE Plan of Treatment Health Maintenance Due Date Last Done Comments HEPATITIS B VACCINES (1 of 3 - 19+ 3-dose series) 1996 01/17/2008, 04/26/2007, 03/25/2007 PAP SMEAR 10/26/2014 10/27/2011 BREAST CANCER SCREENING 2017 DTAP/TDAP/TD VACCINES (2 - Td or Tdap) 11/27/2021 11/28/2011 COLORECTAL SCREENING 2022 Colorectal Cancer Screening 2022 FIT-DNA Q 3 years 2022 FIT/FOBT Q 1 year 2022 Flex Sig/CT Colonography Q 5 years 2022 INFLUENZA VACCINE (#1) 2023 , 02/26/2020, 04/04/2019, Additional history exists COVID-19 Vaccine ( season) 2023 04/13/2021, 07/29/2020, 07/11/2020, Additional history exists HPV VACCINES Aged Out No longer eligi ble based on patient's age to complete this topic Medical Devices Implanted Type Area Laser Print Operator Device Identifier Shelf Expiration Date Model / Serial / Lot Breast Saline Smth Rnd Mod 475ml [id number] - [id number] Implanted:Qty: 1 on 06/01/2023 by Tucker Forrester MD at [facility] Right: Breast MENTOR FELICIANO 07/24/2023 [id number] / [id number] / [id number] Description:CHARGE REMOVED I MPLANT SUPPLIED BY [employer] Breast Saline Smth Rnd Mod 475ml [id number] - [id number] Implanted:Qty: 1 on 06/01/2023 by Tucker Forrester MD at [facility] Left: Breast MENTOR FELICIANO 02/11/2027 [id number] / [id number] / [id number] Description:CHARGE REMOVED I MPLANT SUPPLIED BY [employer] OFFICE[employer]
--- OUTSIDE RECORDS SUMMARY | 2024-06-30 18:32 | XMS_ITS ---
Author Organization [facility] Address [address] [place] [address] Care Team Providers Care Suspect Artist Supervisor Name Role Phone Candace Francois Primary Care Provider Unavailab Jaiden Mcdonald Unavailable [phone] ZZ-Migration, Provider Unavailable Unavailab le REASON FOR VISIT [facility] Conversion Encounter Medications Medication SIG (Take, Route, Frequency, Duration) Notes Start Date End Date Status EpiPen 2-Isaias 0.3 MG/0.3ML as directed intramuscularly once for 30 days Active Olopatadine HCl 0.1 % 1 gtt in each affected eye 2 times a day for 30 day(s) 12/22/2021 Not-Taking predniSONE 10 MG 3 tab(s) orally once a day for 5 day(s) 05/09/2022 Active Cetirizine HCl 10 MG 1 tab(s) orally once a day for 30 days Active Fluticasone Propionate 50 MCG/ACT 2 spray(s) in each nostril BID for 30 day(s) Active NASAL WASHES N/A DIRECTED INTRANASALLY NEEDED for 30 *Please review for potential replacement for e-prescription and drug interaction check* Active Encounters Encounter Location Date Provider Diagnosis [facility] [address] [place] [address] 09/22/2023 Provider ZZ-Migration Plan Of Treatment No Information Progress Notes * Chuck LEIGH:1975 (48 yo F)Acc No.[id number]:09/22/2023 Patient: Jeannine FRASER Provider: Thomas Hunt :1975 A ge:48 Y S ex:Female Date:09/22/2023 Address:[address] [place] [address] Shivam MACIAS [id number] Pcp:Candace Francois Subjective: * Chief Complaints: * 1 . [facility] To [facility] Conversion Encounter. * Medical History: * Medications: [...] * Procedure Codes: * Electronic signature of Seth MARTIN-Migration on 06/30/2024 at 06:32 PM CDT Sign off status: Pending * Provider: Thomas Hunt Date: 0 09/22/2023 Generated for Josesito dove/Mirtha/Jc on: 06/30/2024 06:32 PM CDT
--- OUTSIDE RECORDS SUMMARY | 2024-06-30 18:32 | XMS_ITS | Patient Health Record ---
Author Organization [facility] Address [address] [place], [place] [address] Support Name Relationship Address Phone Marty Gonzalez Emergency Contact [address] [place], [place] [address] Heather Gonzalez Guarantor Unknown [phone] Reason For Referral No Information Medications Medication SIG (Take, Route, Fr equency, Duration) Notes Start Date End Date Status Pyridium 200 mg 1 tab orally tid for 3 days Active Septra DS 800 mg-160 mg 1 tab(s) orally bid for 3 days Active Social History Tobacco Use: Social History Observation Description Date Details (start date - stop date) Never Smoker NA - NA Smoking Question Answer Notes Patient is a never smoker Problems No Known Problems Plan Of Treatment Future Test Test Name Order Date Urine Culture, Routine 06/16/2019 Insurance Providers Payer Name Payer Address Payer Phone Subscriber Number Group Number Insured Name Patient Relationship to Insured Coverage Start Date Coverage End Date [employer] [address] KENZIE Palacio [phone] [id number] Heather Gonzalez Self - patient is the insured Medical (General) History Surgical History Surgery Date(Month/Year)
--- OUTSIDE RECORDS SUMMARY | 2024-06-30 18:32 | XMS_ITS | Clinical Summary ---
Author Organization [facility] Address [facility] [place] [address] Care Team Providers Care Adjunct Professor Name Role Phone Candace Francois NP Primary Care Provider [phone] Allergies No known active allergies Medications Multiple Vitamin (MULTIVITAMIN ADULT) Tab Take 1 tablet by mouth daily. Active PROGESTERONE OR Acti ve Testosterone 20 % Cream Active traMADol (ULTRAM) 50 MG tabletIndications: Acute Pain < 7 Day Supply Take 1 tablet (50 mg total) by mouth every 6 (six) hours as needed. Indications: Acute Pain < 7 Day Supply 20 tablet 03/03/20 24 Active famotidine (PEPCID) 20 MG tablet Take 1 tablet (20 mg total) by mouth 2 (two) times daily. 20 tablet 03/03/20 Active meloxicam (MOBIC) 15 MG tablet Take 1 tablet (15 mg total) by mouth daily. 03/02/20 Active phenazopyridine (PYRIDIUM) 200 MG tablet TAKE ONE TABLET BY MOUTH THREE TIMES DAILY NEEDED FOR FOR PAIN 02/25/20 Active methylPREDNISolone , MANDEEP, (MEDROL DOSEPAK) 4 MG tabletIndications: Degeneration of intervertebral disc of lumbar region with discogenic back pain and lower extremity pain Take 1 tablet (4 mg total) by mouth see administration instructions. Follow package directions 1 each 04/21/19 Active meloxicam (MOBIC) 15 MG tabletIndications: Degeneration of intervertebral disc of lumbar region with discogenic back pain and lower extremity pain Take 1 tablet (15 mg total) by mouth daily. 30 tablet 2 04/21/19 Active Active Problems Problem Noted Date Diagnosed Date Degeneration of intervertebr al disc of lumbar region with discogenic back pain and lower extremity pain 04/21/2024 Assessment & Plan (04/21/2024 8:22 PM ACADEMIC SUPPORT ASSISTANT): Recommendation at this time, we went over the risks and benefits as well as the alternatives. We'd like to try to get her set up for an MRI of the lumbar spine as well as her right knee. We'll get her set up with a medrol dose pack as well as meloxicam. We'll see her back after the MRIs. Acute pain of right knee 04/21/2024 PTSD (post-traumatic stress disorder) 01/06/2021 Anxiety and depression 01/06/2021 Encounters Date Type Department Care Team Description 06/20/2024 Telephone [facility] [address] [place] [address] Candace Francois NP Referral Request 04/21/2024 3:20 PM ACADEMIC SUPPORT ASSISTANT Office Visit [facility] Medical [facility] Orthopedic Surgery [facility] [address] [facility] [address] [place], [place] [id number] Sergio Bajwa DO Knee Pain (Right Knee Pain) 04/21/2024 Travel from Last 3 Months Immunizations Name Administration Dates Next Due Anthrax Vaccine 04/26/2007,04/12/2007,03/25/2007 Fluzone 6 Months+ Quad (0.5 mL Prefilled Syringe) 01/20/2022 H1N1 Injectable 2008 Influenza 03/26/2009 Hepatitis A (Havrix [address]) 12/12/2001,2001 Hepatitis B (Generic: Adult) 01/17/2008,04/26/19 08,03/25/2007 Influenza (FluMist) 02/09/2015, 4,01/10/2013,01/31,01/17/2008,02/25/2007,02/12/2006 ,05/04/2004 Influenza (Generic) 04/20/2016, 6,01/02/2012,12/29,02/08/2009,03/28/2005,03/09/2003 ,02/11/2002,02/22/2001 Influenza Adult (Generic) 02/26/2020,,01/09/2018,06/11 MMR (MMRII) 05/28/2001 Meningococcal (Menomune) 03/09/2003 PFIZER COVID-19 (ORIGINAL FO RMULATION, PURPLE CAP) mRNA, LNP-S, PF, 30 MCG/0.3 ML DOSE 07/29/2020,07/11/2020 Polio IPV (Ipol) 05/30/2001 Rabies (Imovax) 01/22/2004,12/15/2003 Rabies Vaccine 12/30/2003,12/22/2003,12/18/2003 Small Pox 03/25/2007 Td (TDVAX) 05/30/2001 Tdap (Generic) 11/28/2011 Typhoid (Typhim ) 03/25/2007 Family History Medical History Relation Comments Lung Cancer Maternal Grandfather Lung Cancer Maternal Grandmother Relation Status Comments Maternal Grandfather Maternal Grandmother Social History Tobacco Use Types Packs/Day Years Used Date Smoking Tobacco: Never Passive Smoke Exposure: Never Smokeless Tobacco: Never Tobacco Cessation:Counseling Given: No Comments:The provider can provide you with more information about quitting. Alcohol Use Standard Drinks/Week Comments Yes 6.7 (1 standard drink = 0.6 oz p ure alcohol) socially PHQ-2 Answer Date Recorded Patient Health Questionnaire-2 Score 1 09/06/2023 Comments No Sex and Gender Information Value Date Recorded Sex Assigned at Not on file Legal Sex Female 5:23 PM CDT Gender Identity Not on file Sexual Orientation Not on file Last Filed Vital Signs Vital Sign Reading Time Taken Comments Blood Pressure 135/79 04/21/2024 3:17 PM ACADEMIC SUPPORT ASSISTANT Pulse 65 04/21/2024 3:17 PM ACADEMIC SUPPORT ASSISTANT Temperature 36.7 C (98 F) 04/21/2024 3:17 PM ACADEMIC SUPPORT ASSISTANT Respiratory Rate 16 03/03/2024 1:28 PM ACADEMIC SUPPORT ASSISTANT Oxygen Saturation 98% 04/21/2024 3:17 PM ACADEMIC SUPPORT ASSISTANT Inhaled Oxygen Concentration - - Weight 67.7 kg (149 lb 3.2 oz) 04/21/2024 3:17 P M ACADEMIC SUPPORT ASSISTANT Height 167.6 cm (5' 6 ) 04/21/2024 3:17 PM ACADEMIC SUPPORT ASSISTANT Body Mass Index 24.08 04/21/2024 3:17 PM ACADEMIC SUPPORT ASSISTANT Plan of Treatment Health Maintenance Due Date Last Done Comments Colorectal Cancer Screening Colonoscopy (10 Years) 1975 Hepatitis C 07/09/1995 Cervical Cancer Screening Pap Smear (Age 30 to 64) Every 3 Years 10/26/2014 10/27/2011 Mammogram Screening 2017 DTaP, Tdap and Td Vaccines (2 - Td or Tdap) 11/27/2021 11/28/2011, 05/30/2001 Annual Physical 01/06/2022 01/06/2021 COVID-19 Vaccine (4 - season) 2023 04/13/2021, 07/29/2020, 07/11/2020 Influenza Adult (#1) 2024 01/20/2022, 02/26/2020, 04/04/2019, Additional history exists PHQ-2 (Physician Downey) 04/09/2024 09/06/2023 Cervical Cancer Screening Pap with HPV Testing (Age 30 to 64) Every 5 Years 10/12/2024 10/13/2019, 08/18/2014, 10/30/2011, Additional history exists Cervical Cancer Screening with HPV 10/12/2024 Meningococcal Vaccine Aged Out 03/09/2003 No conor sonam eligible based on patient's age to complete this topic Hepatitis B Vaccines Completed 01/17/2008, 04/26/2007, 03/25/2007 Meningococcal B Vaccine Aged Out No l onger eligible based on patient's age to complete this topic Pneumococcal Vaccine: Pediatrics (0 to 5 Years) and At-Risk Patients (6 to 64 Years) Aged Out No longer eligible based on patient's age to complete this topic RSV Immunizations Under 20 Months Aged Out No longer eligible based on patient's age to complete this topic Procedures Procedure Name Priority Date/Time Associated Diagnosis Comments OUTSIDE CYTOPATH CERV/VAG INTERPRET (PAP) 10/13/2019 from Last 3 Months or Most Recently Relevant to Health Maintenance Results * OUTSIDE CYTOPATH VAG/CERV PAP WITH HPV (10/13/2019) 10/13/2019 Narrative 10/13/2019 Ordered by an unspecified provider. us Documents Scanned SCANNING Final Result from Last 3 Months or Most Recently Relevant to Health Maintenance Insurance Care Teams Adjunct Professor Relationship Specialty Start Date End Date Candace Francois NP [address] [place] [address] PCP - General NURSE PRACTITIONER 12/22/20
--- OUTSIDE RECORDS SUMMARY | 2024-06-30 18:32 | XMS_ITS | Patient Health Record ---
Author Organization [facility] Address [address] [place] [address] Care Team Providers Care Fire Alarm Mechanic Name Role Phone Candace Francois Primary Care Provider Unavailab Jaiden Mcdonald Unavailable [phone] ZZ-Migration, Provider Unavailable Unavailab le Allergies No Known Allergies Reason For Referral No Information Medications Medication SIG (Take, Route, Frequency, Duration) Notes Start Date End Date Status PREDNISONE 10 mg 3 tab(s) orally once a day for 5 day(s) 05/09/2022 Active EpiPen 2-Isaias 0.3 MG/0.3ML as directed intramuscularly once for 30 days Active NASAL WASHES N/A DIRECTED INTRANASALLY NEEDED for 30 *Please review for potential replacement for e-prescription and drug interaction check* Active FLUTICASONE NASAL 50 mcg/inh 2 spray(s) in each nostril BID for 30 day(s) Active CETIRIZINE 10 mg 1 tab(s) orally once a day for 30 days Active Olopatadine HCl 0.1 % 1 gtt in each affected eye 2 times a day for 30 day(s) 12/22/2021 Not-Taking predniSONE 10 MG 3 tab(s) orally once a day for 5 day(s) 05/09/2022 Active Cetirizine HCl 10 MG 1 tab(s) orally once a day for 30 days Active EPIPEN 2-ISAIAS 0.3 mg as directed intramuscularly once for 30 days Active Fluticasone Propionate 50 MCG/ACT 2 spray(s) in each nostril BID for 30 day(s) Active OLOPATADINE OPHTHALMIC 0.1% 1 gtt in each affected eye 2 times a day for 30 day(s) 12/22/2021 Not-Taking Immunizations Vaccine Route Administration Date Status Comme nts Flucelvax Unknown 01/20/2022 Administered Social History Tobacco Use: Social History Observation Description Date Details (start date - stop date) Never Smoker NA - NA Smoking Smart Form: Question Answer Notes Are you a: never smoker Problems Problem Type SNOMED Code ICD Code Onset Dates Problem Status W/U Status Risk Notes Problem Chronic allergic conjunctivitis (97323927) Other chronic allergic conjunctivitis (H10.45) Active confirmed Problem Allergic rhinitis caused by pollen (disorder) (95607983) Allergic rhinitis due to pollen (J30.1) Active confirmed Problem Allergic rhinitis caused by animal hair and dander (042186251183483) Allergic rhinitis due to animal (cat) (dog) hair and dander (J30.81) Active confirmed Problem Allergic rhinitis (00596509) Other allergic rhinitis (J30.89) Active confirmed Problem Allergic rhinitis caused by pollen (disorder) (64065059) Allergic rhinitis due to pollen (J30.1) Active confirmed Problem Allergic rhinitis caused by animal hair and dander (078192018546471) Allergic rhinitis due to animal (cat) (dog) hair and dander (J30.81) Active confirmed Problem Allergic rhinitis (75556016) Other allergic rhinitis (J30.89) Active confirmed Problem Chronic allergic conjunctivitis (76332787) Other chronic allergic conjunctivitis (H10.45) Active confirmed Problem Eruption of skin (919886007) Rash and other nonspecific skin eruption (R21) Active confirmed Encounters Encounter Location Date Provider Diagnosis [address] [address] 09/22/2023 Provider ZZ-Migration Plan Of Treatment No Information Insurance Providers Payer Name Payer Address Payer Phone Subscriber Number Group Number Insured Name Patient Relationship to Insured Coverage Start Date Coverage End Date [facility] [address] [place] [address] [phone] [id number] Ismael Gonzalez Spouse - patient is the spouse of the insured Medical (General) History Medical History History ICD Code Nasal polyp, unspecified J33.9 Allergic rhinitis due to pollen J30.1 Allergic rhinitis due to animal (cat) (d og) hair and dander J30.81 Other allergic rhinitis J30.89 Other chronic allergic conjunctivitis H1 0.45 Surgical History Surgery Date(Month/Year) sinus surgery 2009
--- OUTSIDE RECORDS SUMMARY | 2024-06-30 18:32 | XMS_ITS | Encounter Summary ---
Author Name [facility] Address [address] [place] [address] Care Team Providers Care Group Segment Consultant Name Role Phone LAZARO SALDIVAR Primary Care Provider Unavailabl e Selected Encounter This section includes the information on record at OR for the Encounter. Date/Time Encounter Type Encounter Description Reason Pro vider Source Mar 11, 2024 12:42 PM Outpatient Encounter ADMIN PAT ACTIVTIES (NEGINNONCT) IHE Encounter Template Text not used by OR Plan of Treatment: Future Appointments (+ 6 months) and Future Tests (+/- 45 days) The Plan of Treatment section includes future care activities for the patient from all OR treatmentfacilities. This section includes future appointments and future orders which are active, pending or scheduled. Future Appointments This section includes appointments that were scheduled to occur 6 months from the date of the Encounter, up to a maximum of 20 appointments. The data comes from all OR treatment facilities. Appointment Date/Time Appointment Type Appointme nt Facility Name Apr 14, 2024 12:30 PM AMBULATORY - MEDICINE [facility] Apr 15, 2024 09:00 AM AMBULATORY - MEDICINE [facility] Apr 25, 2024 10:40 AM AMBULATORY - NONE [facility] May 01, 2024 08:00 AM AMBULATORY - NONE [facility] May 01, 2024 02:00 PM AMBULATORY - MEDICINE [facility] May 12, 2024 11:30 AM AMBULATORY - NONE [facility] May 29, 2024 11:00 AM AMBULATORY - NONE [facility] Jun 02, 2024 11:30 AM AMBULATORY - NONE [facility] Jun 25, 2024 11:00 AM AMBULATORY - MEDICINE [facility] Aug 04, 2024 12:15 PM AMBULATORY - MEDICINE [facility] September 05, 2024 02:00 PM AMBULATORY - NONE [facility] Encounter Notes: All associated encounter notes This section contains the clinical notes associated to the Encounter. Date/Time Encounter Note(s) Provider Source Mar 11, 2024 12:42 PM ADMINISTRATIVE NOT E: LOCAL TITLE: ADMINISTRATIVE STL STANDARD TITLE: ADMINISTRATIVE NOTE DATE OF NOTE: MAR 11, 2024@12:42 ENTRY DATE: MAR 11, 2024@12:42:52 AUTHOR: BETZAIDA AMES EXP COSIGNER: URGENCY: STATUS: COMPLETED GEE LEIGH [address] [id number] Dear [email or web address] [email or web address] Thank you for choosing the [facility] as your primary choice for health care. We are attempting to contact you to schedule the: Airborne Hazard and Open Burn Pit Registry Exam Please call us at [phone] to speak to us regarding making an appointment In the [facility]. If you received this letter after you have spoken to us, please disregard this letter. Sincerely, Environmental [facility] Program /jarrett/ BETZAIDA AMES [facility] AS[facility] Signed: 03/11/2024 12:43 BETZAIDA AMES [facility]
--- OUTSIDE RECORDS SUMMARY | 2024-06-30 18:32 | XMS_ITS | Continuity of Care Document ---
Author Name [facility] Organization [facility] Care Team Providers Care Finishing Range Feeder Name Role Phone [facility] Unavailable Unavailable Problems Combined list of problems from [facility] and [facility] facilities. It does not include entries that were removed or entered in error. Problem Status Onset Date Problem Type Date of Resolution Comments Source Backache Active Condition Unknown Organization PTSD - Post-traumatic stress disorder Active Condition Unknown Organization Recurrent UTI - urinary tract infection Active Condition Unknown Organization Shoulder pain Active Condition Unknown Organization Tinnitus Active Condition Unknown Organization Exposure to potentially hazardous substance ([facility] [id number] ) Active Condition May 07, 2024 Entered By: OTILIA JEAN-BAPTISTE Comment: Entered automatically through [facility] Problem List documentation program [facility] Snoring Active Condition [facility] Diagnosis: ICD-10-CM M25.531 Pain in right wrist Active Diagnosis [facility] Diagnosis: ICD-10-CM Z12.11 Encounter for screening for malignant neoplasm of colon Active Diagnosis [facility] Diagnosis: ICD-10-CM M54.50 Low back pain, unspecified Active Diagnosis [facility] Diagnosis: ICD-10-CM Z01.419 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 Medication Details Route Status Patient Instructions Prescription Expires Prescription Number Last Dispense Date Ordering Provider Order Date Order Qty Source BISACODYL 5MG TAB,EC TAKE TWO TABLETS BY MOUTH ONE TIME TAKE BISACODY L TABLETS AT 4PM ON AFTERNOO N PRIOR TO TEST. CALL [phone] WITH ANY QUESTION S ABOUT THESE INSTRUCT IONS. MAIL TAKE BISACODY L TABLETS AT 4PM ON OO N PRIOR TO TEST. CALL WITH ANY QUESTION S ABOUT THESE INSTRUCT IONS. MAIL ORAL ACTIVE 07/02/2024 [id number] OTILIA OWEN 2024 2 [facility] cetirizine 10 mg oral tablet cetirizi ne 10 mg oral tablet Start Date: 03/09/20 Status: Ordered Repeat number: 1 Ordered 2020 No Facilit y Access cetirizine 10 mg oral tablet TAKE ONE TABLET DAILY, # 30 EA, 0 total refill(s ), Acute Complet ed 12/21/20222022 30.0 Ambulat ory Pharmac y EPINEPHrine 0.3 mg injectable kit INJECT 0.3MG INTRAMUS CULARLY FOR ONE DOSE DIRECTED , # 2 EA, 0 total refill(s ), Acute Complet ed 12/21/20222022 2.0 Ambulat ory Pharmac y fluticasone 50 mcg/inh nasal spray USE 2 SPRAYS IN EACH NOSTRIL TWICE A DAY DIRECTED , # 16 g, 0 total refill(s ), Acute Complet ed 12/21/20222022 16.0 Ambulat ory Pharmac y MELOXICAM 15MG TAB TAKE ONE TABLET BY MOUTH ONCE A DAY FOR OSTEOART HRITIS ORAL ACTIVE 06/26/2025 [id number] 5 BART SALDIVAR 2024 90 [facility] METHYLPREDN ISOLONE 4MG TAB DOSEPAK,21 TAKE TABLETS BY MOUTH DIRECTED FOR INFLAMMA TION TAKE 6 TABLETS BY MOUTH ON DAY ONE, THEN DECREASE BY ONE TABLET DAILY UNTIL GONE. TAKE WITH FOOD. ORAL 05/31/2024 [id number] 5 BART SALDIVAR 2024 1 [facility] nitrofurant oin macrocrysta ls-monohydr ate 100 mg oral capsule 0 total refill(s ) Discont inued 08/12/20202020 No Facilit y Access ocular lubricant ophthalmic gel ocular lubrican t ophthalm ic gel Start Date: 04/07/20 Status: Ordered Repeat number: 1 Ordered 2020 No Facilit y Access ocular lubricant ophthalmic solution ocular lubrican t ophthalm ic solution Start Date: 04/07/20 Stop Date: 08/12/20 Status: Dareki keena Repeat number: 1 Discont inued 08/12/20202020 No Facilit y Access olopatadine 0.1% ophthalmic solution INSTILL 1 DROP IN EACH AFFECTED EYE TWICE A DAY DIRECTED , # 5 mL, 0 total refill(s ), Acute Complet ed 12/21/20222022 5.0 Ambulat ory Pharmac y olopatadine 0.1% ophthalmic solution olopatad ine 0.1% ophthalm ic solution Start Date: 03/09/20 Stop Date: 08/12/20 Status: Discfuentesi keena Repeat number: 1 Discont inued 08/12/20202020 No Facilit y Access oseltamivir 75 mg oral capsule 0 total refill(s ) Discont inued 08/12/20202020 No Facilit y Access PEG-3350/EL ECTROLYTES PWDR MIX AND DRINK CONTENTS OF BOTTLE BY MOUTH DIRECTED (THE DAY BEFORE YOUR TEST ONLY DRINK CLEAR LIQUIDS- NO SOLID FOOD! TAKE THE BISACODY L TABLETS AT 4PM AND MIX THE GOLYTELY WITH WATER AND REFRIGER ATE. AT 7PM DRINK HALF OF THE GOLYTELY . REFRIGER ATE OVERNIGH T. COMPLETE GOLYTELY 3 HRS BEFORE LEAVING HOME FOR TEST. READ YOUR INSTRUCT IONS!) (THE DAY BEFORE YOUR TEST ONLY DRINK CLEAR LIQUIDS- NO SOLID FOOD! TAKE THE BISACODY L TABLETS AT 4PM AND MIX THE GOLYTELY WITH WATER AND REFRIGER ATE. AT 7PM DRINK HALF OF THE GOLYTELY . REFRIGER ATE OVERNIGH T. COMPLETE GOLYTELY 3 HRS BEFORE LEAVING HOME FOR TEST. READ YOUR INSTRUCT IONS!) ORAL ACTIVE 07/02/2024 [id number] 5 OTILIA OWEN 2024 1 [facility] phenazopyri dine 200 mg oral tablet phenazop yridine 200 mg oral tablet Start Date: 06/17/19 Stop Date: 08/12/20 Status: Disconti keena Repeat number: 1 Discont inued 08/12/20202020 No Facilit y Access phenazopyri dine 200 mg oral tablet phenazop yridine 200 mg oral tablet Start Date: 06/30/19 Stop Date: 08/12/20 Status: Bia brink Repeat number: 1 Discont inued 08/12/20202020 No Facilit y Access SIMETHICONE 80MG TAB,CHEW CHEW AND SWALLOW FOUR TABLETS BY MOUTH DIRECTED FOR TWO DOSES BEFORE GI PROCEDUR E ORAL ACTIVE 07/02/2024 [id number] 5 OTILIA OWEN 2024 8 [facility] sulfamethox azole-trime thoprim 800 mg-160 mg oral tablet 1 total refill(s ) Discont inued 08/12/20202020 No Facilit y Access Allergies, Adverse Reactions, Alerts Combined list of allergies from [facility] facilities. It does not include entries that were removed or entered in error. Substance Category Reaction Severity Reaction type Status Date Reported Comments Source Seasonal Allergies Allergy to substance Itching,W atering Eyes, Other Reaction Moderate Active dry eyes w/ dry skin periorbitally and nasal drainage/conge stipeter [id number] Immunizations Combined list of available immunizations from the Department of Defense and Veterans Affairs facilities. Immunization Series Date Given Administered By Site Reaction Lot Number CVX Code Drug Trust Manager Status Comments Source INFLUENZA, SPLIT VIRUS, TRIVALENT, PF 2024 RICK OCHOA V RIGHT DELTO ID [id number] 140 complet ed [facility] COVID-19 (PFIZER), MRNA, LNP-S, PF, 30 MCG/0.3 ML DOSE 1 2020 208 complet ed [employer] influenza virus vaccine, inactivated 2019 [id number] [employer] complet ed influenza virus vaccine, inactivat ed 02/26/20 Given Ambulat ory Pharmac y influenza, injectable, quadrivalent- pf 2018 [id number] 150 [employer] complet ed influenza , injectabl e, quadrival ent-pf 04/04/19 Given Ambulat ory Pharmac y influenza, injectable, quadrivalent- pf 2017 zLexiief t Arm [id number] 150 [employer] complet ed influenza , injectabl e, quadrival ent-pf 01/09/18 Given Ambulat ory Pharmac y influenza, injectable, quadrivalent- pf [id number] [employer] complet ed influenza , injectabl e, quadrival ent-pf 06/11/17 Given Ambulat ory Pharmac y influenza, seasonal, injectable-pf [id number] complet ed influenza , seasonal, injectabl e-pf 04/20/16 Given Ambulat ory Pharmac y influenza, live, intranasal,qu adrivalent 2014 [id number] [facility] t ed influenza , live, intranasa l,quadriv alent 02/09/15 Given Ambulat ory Pharmac y influenza, live, intranasal,qu adrivalent 2013 [id number] 149 [facility] t ed influenza , live, intranasa l,quadriv alent 01/01/14 Given Ambulat ory Pharmac y influenza, live, intranasal,qu adrivalent 2012 [id number] 149 [facility] t ed influenza , live, intranasa l,quadriv alent 01/10/13 Given Ambulat ory Pharmac y influenza, seasonal, injectable 2011 [id number] 141 sanofi pasteur complet ed influenza , seasonal, injectabl e 01/02/12 Given Ambulat ory Pharmac y tetanus, diphtheria, acellular pertu is 2011 [id number] 115 GlaxoSmithK[employer] hi complet ed tetanus, diphtheri a, acellular pertussis 11/28/11 Given Ambulat ory Pharmac y influenza, seasonal, injectable 2010 [id number] 141 sanofi pasteur complet ed influenza , seasonal, injectabl e 12/29/10 Given Ambulat ory Pharmac y influenza virus vaccine, live 2009 [id number] [employer] Inc comple t ed influenza virus vaccine, live 01/31/10 Given Ambulat ory Pharmac y Novel influenza-H1N 1-09, injectable 2008 [id number] 127 Novartis [employer] complet ed Novel influenza -[id number], injectabl e 03/26/09 Given Ambulat ory Pharmac y influenza virus vaccine,split 2008 [id number] 15 [facility] complet ed influenza virus vaccine,s plit 02/08/09 Given Ambulat ory Pharmac y influenza virus vaccine, live 2007 [id number] 111 [employer] Inc comple t ed influenza virus vaccine, live 01/17/08 Given Ambulat ory Pharmac y hepatitis B adult vaccine 2007 [id number] 43 GlaxoSmithKli ne complet ed hepatitis B adult vaccine 01/17/08 Given Ambulat ory Pharmac y tuberculin purified protein derivative 2007 [id number] 96 sanofi pasteur complet ed tuberculi n purified protein derivativ e 05/06/07 Given Ambulat ory Pharmac y hepatitis B adult vaccine 2007 [id number] [id number] 43 GlaxoSmithKli ne complet ed hepatitis B adult vaccine 04/26/07 Given Ambulat ory Pharmac y anthrax vaccine 2007 [id number] [employer] complet ed anthrax vaccine 04/26/07 Given Ambulat ory Pharmac y anthrax vaccine 2007 [id number] 24 [employer] complet ed anthrax vaccine 04/12/07 Given Ambulat ory Pharmac y typhoid Vi capsular polysaccharid e vac 2006 [id number] 101 sanofi pasteur complet ed typhoid Vi capsular polysacch aride vac 03/25/07 Given Ambulat ory Pharmac y hepatitis B adult vaccine 2006 [id number] 43 GlaxoSmithKli ne complet ed hepatitis B adult vaccine 03/25/07 Given Ambulat ory Pharmac y anthrax vaccine 2006 [id number] 24 [employer] complet ed anthrax vaccine 03/25/07 Given Ambulat ory Pharmac y vaccinia (smallpox) vaccine 2006 [id number] 75 [employer] complet ed vaccinia (smallpox ) vaccine 03/25/07 Given Ambulat ory Pharmac y influenza virus vaccine, live 2006 [id number] 111 Med[employer] Inc comple t ed influenza virus vaccine, live 02/25/07 Given Ambulat ory Pharmac y tuberculin purified protein derivative 2005 [id number] 96 sanofi pasteur complet ed tuberculi n purified protein derivativ e 02/12/06 Given Ambulat ory Pharmac y influenza virus vaccine, live 2005 [id number] 111 [employer] Inc comple t ed influenza virus vaccine, live 02/12/06 Given Ambulat ory Pharmac y influenza virus vaccine,split 2004 [id number] 15 sanofi pasteur complet ed influenza virus vaccine,s plit 03/28/05 Given Ambulat ory Pharmac y influenza virus vaccine, live 2004 [id number] 111 [employer] comple t ed influenza virus vaccine, live 05/04/04 Given Ambulat ory Pharmac y rabies vaccine, IM 2003 [id number] [employer] complet ed rabies vaccine, IM 01/22/04 Given Ambulat ory Pharmac y rabies vaccine, IM 2003 [id number] 175 [employer] complet ed rabies vaccine, IM 12/30/03 Given Ambulat ory Pharmac y rabies vaccine, IM 2003 [id number] 175 [employer] complet ed rabies vaccine, IM 12/22/03 Given Ambulat ory Pharmac y rabies vaccine, IM 2003 [id number] 175 [employer] complet ed rabies vaccine, IM 12/18/03 Given Ambulat ory Pharmac y rabies vaccine, IM 2003 [id number] 175 [employer] complet ed rabies vaccine, IM 12/15/03 Given Ambulat ory Pharmac y meningococcal polysaccharid e (MPSV4) 2002 [id number] sanofi pasteur complet ed meningoco ccal polysacch aride (MPSV4) 03/09/03 Given Ambulat ory Pharmac y influenza virus vaccine, whole virus 2002 [id number] 16 Novartis Pharmaceutica ls complet ed influenza virus vaccine, whole virus 03/09/03 Given Ambulat ory Pharmac y influenza virus vaccine, whole virus 2001 [id number] 16 sanofi pasteur complet ed influenza virus vaccine, whole virus 02/11/02 Given Ambulat ory Pharmac y hepatitis A adult vaccine 2001 [id number] 52 [employer]ck & Company Inc complet ed hepatitis A adult vaccine 12/12/01 Given Ambulat ory Pharmac y tetanus-dipht h toxoids (Td) adult/adol 2001 [id number]-75 09 sanofi pasteur complet ed tetanus-d iphth toxoids (Td) adult/ado l 05/30/01 Given Ambulat ory Pharmac y poliovirus vaccine, inactivated 2001 [id number] 10 sanofi pasteur complet ed polioviru s vaccine, inactivat ed 05/30/01 Given Ambulat ory Pharmac y hepatitis A adult vaccine 2001 [id number] 52 [employer]ck & Company Inc complet ed hepatitis A adult vaccine 05/28/01 Given Ambulat ory Pharmac y tuberculin purified protein derivative 2001 [id number] 96 [facility] complet ed tuberculi n purified protein derivativ e 05/28/01 Given Ambulat ory Pharmac y influenza virus vaccine, whole virus 2000 [id number] 16 sanofi pasteur complet ed influenza virus vaccine, whole virus 02/22/01 Given Ambulat ory Pharmac y Results Combined list of recent chemistry, hematology and other laboratory results from [facility] Defense and [facility], ranging from 15 months to all on record, depending upon the facility. Order Name Results Value Reference Range Date Interpretation Specimen Comments Source COMPREHENSI VE METABOLIC PANEL CREATININE [MASS/VOLUME ] IN SERUM OR PLASMA 0.53 mg/dL 0.6 - 1.1 04/15 L Specimen Type: PLASMA Comment: No hemolysis noted. Ordering Provider: AGUILA SALDIVAR Report Released Date/Time: Apr 14, 2024 01:03 PM Reporting Lab: [facility] [address] [facility] [address] Performing Lab: [facility] [address] [facility] [phone] [place] [address] COMPREHENSI VE METABOLIC PANEL UREA NITROGEN [MASS/VOLUME ] IN SERUM OR PLASMA 15.5 mg/dL 9.0 - 25.0 04/15 Specimen Type: PLASMA Comment: No hemolysis noted. Ordering Provider: AGUILA SALDIVAR Report Released Date/Time: Apr 14, 2024 01:03 PM Reporting Lab: [facility] [address] [facility] [address] Performing Lab: [facility] [address] [facility] [phone] [place] [address] COMPREHENSI VE METABOLIC PANEL GLUCOSE [MASS/VOLUME ] IN SERUM OR PLASMA 82 mg/dL 72 - 99 04/15 Specimen Type: PLASMA Comment: No hemolysis noted. Ordering Provider: AGUILA SALDIVAR Report Released Date/Time: Apr 14, 2024 01:03 PM Reporting Lab: [facility] [address] [facility] [address] Performing Lab: [facility] [address] [facility] [phone] [place] [address] COMPREHENSI VE METABOLIC PANEL SODIUM [MOLES/VOLUM E] IN SERUM OR PLASMA 138 meq/L 136 - 145 04/15 Specimen Type: PLASMA Comment: No hemolysis noted. Ordering Provider: AGUILA SALDIVAR Report Released Date/Time: Apr 14, 2024 01:03 PM Reporting Lab: [facility] [address] [place] [phone] Performing Lab: [facility] [address] [facility] [phone] [place] [address] COMPREHENSI VE METABOLIC PANEL POTASSIUM [MOLES/VOLUM E] IN SERUM OR PLASMA 4.2 meq/L 3.5 - 5 04/15 Specimen Type: PLASMA Comment: No hemolysis noted. Ordering Provider: AGUILA SADLIVAR Report Released Date/Time: Apr 14, 2024 01:03 PM Reporting Lab: [facility] [address] [facility] [address] Performing Lab: [facility] [address] [facility] [phone] [place] [address] COMPREHENSI VE METABOLIC PANEL CHLORIDE [MOLES/VOLUM E] IN SERUM OR PLASMA 103 meq/L 98 - 107 04/15 Specimen Type: PLASMA Comment: No hemolysis noted. Ordering Provider: AGUILA SALDIVAR Report Released Date/Time: Apr 14, 2024 01:03 PM Reporting Lab: [facility] [address] [facility] [address] Performing Lab: [facility] [address] [facility] [phone] [place] [address] COMPREHENSI VE METABOLIC PANEL CARBON DIOXIDE, TOTAL [MOLES/VOLUM E] IN SERUM OR PLASMA 25 meq/L 22 - 31 04/15 Specimen Type: PLASMA Comment: No hemolysis noted. Ordering Provider: AGUILA SALDIVAR Report Released Date/Time: Apr 14, 2024 01:03 PM Reporting Lab: [facility] [address] [facility] [address] Performing Lab: [facility] [address] [facility] [phone] [place] [address] COMPREHENSI VE METABOLIC PANEL CALCIUM [MASS/VOLUME ] IN SERUM OR PLASMA 9.9 mg/dL 8.4 - 10.4 04/15 Specimen Type: PLASMA Comment: No hemolysis noted. Ordering Provider: AGUIAL SALDIVAR Report Released Date/Time: Apr 14, 2024 01:03 PM Reporting Lab: [facility] [address] [place] [phone] Performing Lab: [facility] [address] [facility] [phone] [place] [address] COMPREHENSI VE METABOLIC PANEL PROTEIN [MASS/VOLUME ] IN SERUM OR PLASMA 8.1 g/dL 6 - 8.6 04/15 Specimen Type: PLASMA Comment: No hemolysis noted. Ordering Provider: AGUILA SALDIVAR Report Released Date/Time: Apr 14, 2024 01:03 PM Reporting Lab: [facility] [address] [facility] [phone] Performing Lab: [facility] [address] [facility] [phone] [place] [address] COMPREHENSI VE METABOLIC PANEL ALBUMIN [MASS/VOLUME ] IN SERUM OR PLASMA 4.5 g/dL 3.4 - 5 04/15 Specimen Type: PLASMA Comment: No hemolysis noted. Ordering Provider: AGUILA SALDIVAR Report Released Date/Time: Apr 14, 2024 01:03 PM Reporting Lab: [facility] [address] [facility] [address] Performing Lab: [facility] [address] [facility] [phone] [place] [address] COMPREHENSI VE METABOLIC PANEL BILIRUBIN.TO MICHAEL [MASS/VOLUME ] IN SERUM OR PLASMA 0.9 mg/dL 0.2 - 1.2 04/15 Specimen Type: PLASMA Comment: No hemolysis noted. Ordering Provider: AGUILA SALDIVAR Report Released Date/Time: Apr 14, 2024 01:03 PM Reporting Lab: [facility] [address] [place] [phone] Performing Lab: [facility] [address] [place] [place] [address] [phone] [place] [address] COMPREHENSI VE METABOLIC PANEL ALKALINE PHOSPHATASE [ENZYMATIC ACTIVITY/VOL UME] IN SERUM OR PLASMA 78 U/L 40 - 150 04/15 Specimen Type: PLASMA Comment: No hemolysis noted. Ordering Provider: AGUILA SALDIVAR Report Released Date/Time: Apr 14, 2024 01:03 PM Reporting Lab: [address] [address] Performing Lab: [phone] [place] [address] COMPREHENSI VE METABOLIC PANEL ASPARTATE AMINOTRANSFE RASE [ENZYMATIC ACTIVITY/VOL UME] IN SERUM OR PLASMA 58 U/L 5 - 34 04/15 H Specimen Type: PLASMA Comment: No hemolysis noted. Ordering Provider: AGUILA SALDIVAR Report Released Date/Time: Apr 14, 2024 01:03 PM Reporting Lab: [facility] [address] [place] [phone] Performing Lab: [facility] [address] [place] [place] [address] [phone] [place] [address] COMPREHENSI VE METABOLIC PANEL ALANINE AMINOTRANSFE RASE [ENZYMATIC ACTIVITY/VOL UME] IN SERUM OR PLASMA 42 U/L 8 - 40 04/15 H Specimen Type: PLASMA Comment: No hemolysis noted. Ordering Provider: AGUILA SALDIVAR Report Released Date/Time: Apr 14, 2024 01:03 PM Reporting Lab: [facility] [address] [place] [place] [phone] Performing Lab: [facility] [address] [place] [place] [phone] [facility] COMPREHENSI VE METABOLIC PANEL GLOMERULAR FILTRATION RATE/1.73 SQ M.PREDICTED [VOLUME RATE/AREA] IN SERUM, PLASMA OR BLOOD BY CREATININE-B ASED FORMULA (CKD-EPI 2020) 115.4 60 04/15 Specimen Type: PLASMA Comment: No hemolysis noted. Ordering Provider: AGUILA SALDIVAR Report Released Date/Time: Apr 14, 2024 01:03 PM Reporting Lab: [facility] [address] [facility] [phone] Performing Lab: [facility] [address] [facility] [phone] [facility] LIPID PANEL (STL) CHOLESTEROL [MASS/VOLUME ] IN SERUM OR PLASMA 218 mg/dL 0 - 200 04/15 H Specimen Type: PLASMA Comment: No hemolysis noted. Ordering Provider: AGUILA SALDIVAR Report Released Date/Time: Apr 14, 2024 01:03 PM Reporting Lab: [facility] [address] [facility] [address] Performing Lab: [facility] [address] [place] [place] [phone] [facility] LIPID PANEL (STL) TRIGLYCERIDE [MASS/VOLUME ] IN SERUM OR PLASMA 98 mg/dL 0 - 150 04/15 Specimen Type: PLASMA Comment: No hemolysis noted. Ordering Provider: AGUILA SALDIVAR Report Released Date/Time: Apr 14, 2024 01:03 PM Reporting Lab: [facility] [address] [facility] [address] Performing Lab: [facility] [address] [place] [place] [phone] [facility] LIPID PANEL (STL) CHOLESTEROL IN LDL [MASS/VOLUME ] IN SERUM OR PLASMA BY CALCULATION 129 mg/dL 04/15 Specimen Type: PLASMA Comment: No hemolysis noted. Ordering Provider: AGUILA SALDIVAR Report Released Date/Time: Apr 14, 2024 01:03 PM Reporting Lab: [facility] [address] [facility] [address] Performing Lab: [facility] [address] [facility] [address] [facility] LIPID PANEL (STL) CHOLESTEROL IN HDL [MASS/VOLUME ] IN SERUM OR PLASMA 69 mg/dL 40 04/15 Specimen Type: PLASMA Comment: No hemolysis noted. Ordering Provider: AGUILA SALDIVAR Report Released Date/Time: Apr 14, 2024 01:03 PM Reporting Lab: [facility] [address] [place], [place] [phone] Performing Lab: [facility] [address] [place] [place] [address] [phone] [place] [address] CBC LEUKOCYTES [#/VOLUME] IN BLOOD BY AUTOMATED COUNT 3.4 10*3/u L 3.6 - 11.2 04/15 L Specimen Type: BLOOD No comment entered. Ordering Provider: AGUILA SALDIVAR Report Released Date/Time: Apr 14, 2024 01:03 PM Reporting Lab: [facility] [address] [place] [address] Performing Lab: [address] [phone] CBC ERYTHROCYTES [#/VOLUME] IN BLOOD BY AUTOMATED COUNT 3.98 10*6/u L 3.60 - 5.00 04/15 Specimen Type: BLOOD No comment entered. Ordering Provider: AGUILA SALDIVAR Report Released Date/Time: Apr 14, 2024 01:03 PM Reporting Lab: [facility] [address] [facility] [address] Performing Lab: [address] [phone] [place] [address] CBC HEMOGLOBIN [MASS/VOLUME ] IN BLOOD 14.1 g/dL 11.0 - 14.9 04/15 Specimen Type: BLOOD No comment entered. Ordering Provider: AGUILA SALDIVAR Report Released Date/Time: Apr 14, 2024 01:03 PM Reporting Lab: [facility] [address] [place] [address] Performing Lab: [facility] [address] [place] [address] [phone] [place] [address] CBC HEMATOCRIT [VOLUME FRACTION] OF BLOOD 40.2 32.6 - 43.4 04/15 Specimen Type: BLOOD No comment entered. Ordering Provider: AGUILA SALDIVAR Report Released Date/Time: Apr 14, 2024 01:03 PM Reporting Lab: [facility] [address] [place], [place] [phone] Performing Lab: [facility] [address] [place] [address] [phone] [place] [address] CBC MCV [ENTITIC VOLUME] BY AUTOMATED COUNT 101.0 fL 80.0 - 100.0 04/15 H Specimen Type: BLOOD No comment entered. Ordering Provider: AGUILA SALDIVAR Report Released Date/Time: Apr 14, 2024 01:03 PM Reporting Lab: [place] [address] Performing Lab: [address] CBC MCH [ENTITIC MASS] BY AUTOMATED COUNT 35.4 pg 27.0 - 34.0 04/15 H Specimen Type: BLOOD No comment entered. Ordering Provider: AGUILA SALDIVAR Report Released Date/Time: Apr 14, 2024 01:03 PM Reporting Lab: [facility] [address] [place], [place] [phone] Performing Lab: [place] [phone] [place] [address] CBC MCHC [MASS/VOLUME ] BY AUTOMATED COUNT 35.1 g/dL 33.0 - 36.0 04/15 Specimen Type: BLOOD No comment entered. Ordering Provider: AGUILA SALDIVAR Report Released Date/Time: Apr 14, 2024 01:03 PM Reporting Lab: [facility] [place] [address] Performing Lab: [address] [phone] CBC PLATELETS [#/VOLUME] IN BLOOD BY AUTOMATED COUNT 210 10*3/u L 150 - 400 04/15 Specimen Type: BLOOD No comment entered. Ordering Provider: AGUILA SALDIVAR Report Released Date/Time: Apr 14, 2024 01:03 PM Reporting Lab: [place] [address] [address] [facility] [address] Performing Lab: [facility] [address] [facility] [address] [facility] CBC PLATELET MEAN VOLUME [ENTITIC VOLUME] IN BLOOD BY AUTOMATED COUNT 9.0 fL 7.5 - 11.2 04/15 Specimen Type: BLOOD No comment entered. Ordering Provider: AGUILA SALDIVAR Report Released Date/Time: Apr 14, 2024 01:03 PM Reporting Lab: [facility] [address] [facility] [address] Performing Lab: [facility] [address] [facility] [address] [facility] CBC ERYTHROCYTE DISTRIBUTION WIDTH [RATIO] BY AUTOMATED COUNT 11.3 11.8 - 15.1 04/15 L Specimen Type: BLOOD No comment entered. Ordering Provider: AGUILA SALDIVAR Report Released Date/Time: Apr 14, 2024 01:03 PM Reporting Lab: [facility] [address] [facility] [address] Performing Lab: [facility] [address] [facility] [address] [facility] CBC LYMPHOCYTES/ 100 LEUKOCYTES IN BLOOD BY AUTOMATED COUNT 37 04/15 Specimen Type: BLOOD No comment entered. Ordering Provider: AGUILA SALDIVAR Report Released Date/Time: Apr 14, 2024 01:03 PM Reporting Lab: [facility] [address] [facility] [address] Performing Lab: [facility] [address] [facility] [address] [facility] CBC MONOCYTES/10 0 LEUKOCYTES IN BLOOD BY AUTOMATED COUNT 14 04/15 Specimen Type: BLOOD No comment entered. Ordering Provider: AGUILA SALDIVAR Report Released Date/Time: Apr 14, 2024 01:03 PM Reporting Lab: [facility] [address] [facility] [address] Performing Lab: [facility] [address] [facility] [phone] CBC NEUTROPHILS/ 100 LEUKOCYTES IN BLOOD BY AUTOMATED COUNT 44 04/15 Specimen Type: BLOOD No comment entered. Ordering Provider: AGUILA SLADIVAR Report Released Date/Time: Apr 14, 2024 01:03 PM Reporting Lab: [facility] [address] [facility] [address] Performing Lab: [facility] [address] [place] [phone] CBC EOSINOPHILS/ 100 LEUKOCYTES IN BLOOD BY AUTOMATED COUNT 4 04/15 Specimen Type: BLOOD No comment entered. Ordering Provider: AGUILA SALDIVAR Report Released Date/Time: Apr 14, 2024 01:03 PM Reporting Lab: [facility] [address] [place] [address] Performing Lab: [facility] [address] [place] [address] CBC BASOPHILS/10 0 LEUKOCYTES IN BLOOD BY AUTOMATED COUNT 2 04/15 Specimen Type: BLOOD No comment entered. Ordering Provider: AGUILA SALDIVAR Report Released Date/Time: Apr 14, 2024 01:03 PM Reporting Lab: [facility] [address] [place] [address] Performing Lab: [facility] [address] [place], [place] [phone] [address] CBC LYMPHOCYTES [#/VOLUME] IN BLOOD BY AUTOMATED COUNT 1.26 10*3/u L 0.77 - 4.50 04/15 Specimen Type: BLOOD No comment entered. Ordering Provider: AGUILA SALDIVAR Report Released Date/Time: Apr 14, 2024 01:03 PM Reporting Lab: [facility] [address] [place], [place] [phone] Performing Lab: [facility] [address] [place] [address] CBC MONOCYTES [#/VOLUME] IN BLOOD BY AUTOMATED COUNT 0.49 10*3/u L 0.19 - 0.80 04/15 Specimen Type: BLOOD No comment entered. Ordering Provider: AGUILA SALDIVAR Report Released Date/Time: Apr 14, 2024 01:03 PM Reporting Lab: [facility] [address] [place] [address] Performing Lab: [facility] [address] [place] [address] CBC NEUTROPHILS [#/VOLUME] IN BLOOD BY AUTOMATED COUNT 1.49 10*3/u L 2.10 - 8.00 04/15 L Specimen Type: BLOOD No comment entered. Ordering Provider: AGUILA SALDIVAR Report Released Date/Time: Apr 14, 2024 01:03 PM Reporting Lab: [place] [address] Performing Lab: [address] CBC EOSINOPHILS [#/VOLUME] IN BLOOD BY AUTOMATED COUNT 0.12 10*3/u L 0.00 - 0.60 04/15 Specimen Type: BLOOD No comment entered. Ordering Provider: AGUILA SALDIVAR Report Released Date/Time: Apr 14, 2024 01:03 PM Reporting Lab: [facility] [address] [place] [address] Performing Lab: [facility] [address] [place] [address] CBC BASOPHILS [#/VOLUME] IN BLOOD BY AUTOMATED COUNT 0.05 10*3/u L 0.00 - 0.20 04/15 Specimen Type: BLOOD No comment entered. Ordering Provider: AGUILA SALDIVAR Report Released Date/Time: Apr 14, 2024 01:03 PM Reporting Lab: [facility] [address] [place] [address] Performing Lab: [facility] [address] [place] [address] HGA1C HEMOGLOBIN A1C/HEMOGLOB IN.TOTAL IN BLOOD 4.9 4.0 - 6.0 04/15 Specimen Type: BLOOD No comment entered. Ordering Provider: AGUILA SALDIVAR Report Released Date/Time: Apr 14, 2024 01:03 PM Reporting Lab: [facility] [address] [place] [address] Performing Lab: [facility] [address] [place] [address] TSH W/ REFLEX FT4 (STL) THYROTROPIN [UNITS/VOLUM E] IN SERUM OR PLASMA 1.623 u[IU]/ mL 0.47 - 5 04/15 Specimen Type: PLASMA No comment entered. Ordering Provider: AGUILA SALDIVAR Report Released Date/Time: Apr 14, 2024 01:03 PM Reporting Lab: [facility] [place] [address] Performing Lab: [place] [address] VITAMIN D, 25-HYDROXY 25-HYDROXYVI TAMIN D3 [MASS/VOLUME ] IN SERUM OR PLASMA 65.1 ng/mL 30 - 96 04/15 Specimen Type: SERUM No comment entered. Ordering Provider: AGUILA SALDIVAR Report Released Date/Time: Apr 14, 2024 01:03 PM Reporting Lab: [facility] [place] [address] Performing Lab: [place] [address] URINALYSIS (STL-PB) COLOR OF URINE Light- Yellow 04/15 Specimen Type: URINE No comment entered. Ordering Provider: AGUILA SALDIVAR Report Released Date/Time: Apr 14, 2024 01:06 PM Reporting Lab: [facility] [address] [place] [address] Performing Lab: [place] [address] URINALYSIS (STL-PB) BILIRUBIN.TO MICHAEL [PRESENCE] IN URINE BY TEST STRIP Negati vemg/d L 04/15 Specimen Type: URINE No comment entered. Ordering Provider: AGUILA SALDIVAR Report Released Date/Time: Apr 14, 2024 01:06 PM Reporting Lab: [facility] [address] [facility] [address] Performing Lab: [facility] [address] [facility] [phone] [place] [address] URINALYSIS (STL-PB) PH OF URINE BY TEST STRIP 7.0 5.0 - 8.0 04/15 Specimen Type: URINE No comment entered. Ordering Provider: AGUILA SALDIVAR Report Released Date/Time: Apr 14, 2024 01:06 PM Reporting Lab: [facility] [address] [facility] [address] Performing Lab: [place] [address] [facility] [phone] [place] [address] URINALYSIS (STL-PB) APPEARANCE OF URINE Clear 04/15 Specimen Type: URINE No comment entered. Ordering Provider: AGUILA SALDIVAR Report Released Date/Time: Apr 14, 2024 01:06 PM Reporting Lab: [facility] [address] [facility] [address] Performing Lab: [place] [address] [facility] [phone] [place] [address] URINALYSIS (STL-PB) NITRITE [PRESENCE] IN URINE BY TEST STRIP Negati vemg/d L 04/15 Specimen Type: URINE No comment entered. Ordering Provider: AGUILA SALDIVAR Report Released Date/Time: Apr 14, 2024 01:06 PM Reporting Lab: [facility] [address] [facility] [address] Performing Lab: [facility] [address] [facility] [phone] [place] [address] URINALYSIS (STL-PB) GLUCOSE [MASS/VOLUME ] IN URINE BY TEST STRIP Normal mg/dL 04/15 Specimen Type: URINE No comment entered. Ordering Provider: AGUILA SALDIVAR Report Released Date/Time: Apr 14, 2024 01:06 PM Reporting Lab: [facility] [address] [facility] [address] Performing Lab: [facility] [address] [facility] [address] [facility] URINALYSIS (STL-PB) PROTEIN [MASS/VOLUME ] IN URINE BY TEST STRIP Negati vemg/d L 04/15 Specimen Type: URINE No comment entered. Ordering Provider: AGUILA SALDIVAR Report Released Date/Time: Apr 14, 2024 01:06 PM Reporting Lab: [facility] [address] [facility] [address] Performing Lab: [facility] [address] [facility] [address] [facility] URINALYSIS (STL-PB) URN.UROBILIN OGEN Normal mg/dL 04/15 Specimen Type: URINE No comment entered. Ordering Provider: AGUILA SALDIVAR Report Released Date/Time: Apr 14, 2024 01:06 PM Reporting Lab: [facility] [address] [facility] [address] Performing Lab: [facility] [address] [facility] [address] [facility] URINALYSIS (STL-PB) HEMOGLOBIN [MASS/VOLUME ] IN URINE BY TEST STRIP Negati vemg/d L 04/15 Specimen Type: URINE No comment entered. Ordering Provider: AGUILA SALDIVAR Report Released Date/Time: Apr 14, 2024 01:06 PM Reporting Lab: [facility] [address] [facility] [address] Performing Lab: [facility] [address] [facility] [address] [facility] URINALYSIS (STL-PB) KETONES [MASS/VOLUME ] IN URINE BY TEST STRIP Negati vemg/d L 04/15 Specimen Type: URINE No comment entered. Ordering Provider: AGUILA SALDIVAR Report Released Date/Time: Apr 14, 2024 01:06 PM Reporting Lab: [facility] [address] [facility] [address] Performing Lab: [facility] [address] [place] [phone] [place] [address] URINALYSIS (STL-PB) URN.LEUK.EST . Negati vemg/d L 04/15 Specimen Type: URINE No comment entered. Ordering Provider: AGUILA SALDIVAR Report Released Date/Time: Apr 14, 2024 01:06 PM Reporting Lab: [place] [phone] Performing Lab: [place] [phone] URINALYSIS (STL-PB) SPECIFIC GRAVITY OF URINE 1.018 04/15 Specimen Type: URINE No comment entered. Ordering Provider: AGUILA SALDIVAR Report Released Date/Time: Apr 14, 2024 01:06 PM Reporting Lab: [place] [address] Performing Lab: [place] [address] [place] [address] Vital Signs Combined list of inpatient and outpatient Vital Signs from Department of Defense and Veterans Affairs, ranging from 12 months to all on record, depending upon the facility. Vital Sign Value Date Comments Source Blood Pressure Manual Automatic 08/12/2020 20:41:[facility] Respiratory Rate 16 br/min 08/12/2020 20:41:[address] [place], [place] [address]B Clinic Systolic Blood Pressure 111 mm[Hg] 08/12/2020 20:41:[address] [place], [place] [address]B Clinic Diastolic Blood Pressure 75 mm[Hg] 08/12/2020 20:41:[address] [place], [place] [address]B Clinic Peripheral Pulse Rate 72 bpm 08/12/2020 20:41:[address] [place], [place] [address]B Clinic Mean Arterial Pressure, Calc 87 mm[Hg] 08/12/2020 20:41:00 [facility] BP Site Right arm 08/12/2020 20:41:[address] [place], [place] [address]B Clinic Temperature Oral 36.8 Xiomara 08/12/2020 20:41:[address] [place] [address] Clinic SYSTOLIC BLOOD PRESSURE 107 06/25/2024 11:32:46 [facility] DIASTOLIC BLOOD PRESSURE 73 06/25/2024 11:32:[address] [facility] [facility] PULSE OXIMETRY 96 06/25/2024 11:32:[address] [facility] WEIGHT 143 06/25/2024 11:32:[address] [facility] BMI 24 kg/m2 06/25/2024 11:32:[address] [facility] PAIN 0 06/25/2024 11:32:[address] [facility] HEIGHT 65 06/25/2024 11:32:46 [facility] TEMPERATURE 98.1 06/25/2024 11:32:[address] [facility] [facility] PULSE 73 06/25/2024 11:32:[address] [facility] RESPIRATION 20 06/25/2024 11:32:[address] [facility] [facility] SYSTOLIC BLOOD PRESSURE 100 05/01/2024 13:57:28 [facility] DIASTOLIC BLOOD PRESSURE 64 05/01/2024 13:57:28 [facility] PULSE OXIMETRY 98 05/01/2024 13:57:[address] WEIGHT 147.2 05/01/2024 13:57:[address] [facility] BMI 24 kg/m2 05/01/2024 13:57:[address] [facility] PAIN 6 05/01/2024 13:57:[address] [facility] HEIGHT 66 05/01/2024 13:57:28 [facility] TEMPERATURE 97.4 05/01/2024 13:57:[address] [facility] PULSE 73 05/01/2024 13:57:[address] [facility] RESPIRATION 20 05/01/2024 13:57:[address] [facility] [facility] Encounters Combined list of: 1) Encounters from Department of Veterans Affairs facilities going backup to the last 18 months, not all VA inpatient encounters are included; 2) Encounters from the Department of Defense facilities going backup to 280 months. Location Location Details Encounter Type Encounter Number Reason For Visit Attending Provider ADM Date DC Date Status Disposition Source [facility] Outpatient Encounter [id number] TREVOR GONZALEZ 05/25 [facility] Outpatient Encounter [id number] 03/11 [facility] N [facility] Outpatient Encounter [id number] JACOB SAINI 03/11 [facility] Outpatient Encounter [id number] 03/19 [facility] OFFICE O/P EST LOW 20 MIN [id number] Diagnos is: ICD-10- CM M54.41 Lumbago with sciatic a, right side SILVER,AGUILA H C 04/14 [facility] [place]UNIZAT[facility] [place] ADMIN [id number] Diagnos is: ICD-10- CM Z23 Encount er for immuniz atermelinda RICK OCHOA V 04/15 [facility] Outpatient Encounter [id number] 04/15 [facility] Outpatient Encounter [id number] 04/15 [facility] Outpatient Encounter [id number] 04/15 [facility] Outpatient Encounter [id number] 04/16 [facility] Outpatient Encounter [id number] Shivam HANEY S 04/29 [facility] Outpatient Encounter [id number] 05/01 [facility] Outpatient Encounter [id number] 05/01 [facility] OBTAINING SCREEN PAP SMEAR [id number] Diagnos is: ICD-10- CM 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) w/o abn finding s AGUILA SALDIVAR H C 05/01 [facility] Outpatient Encounter [id number] 05/01 [facility] Outpatient Encounter [id number] 05/02 [facility] Outpatient Encounter [id number] [place] TAVARES T 05/07 [facility] Outpatient Encounter [id number] 05/08 [facility] ACUP WO ESTIM 1ST 15 MIN [id number] Diagnos is: ICD-10- CM M54.50 Low back pain, unspeci fied DREW STRONG TTHEW J 05/12 [facility] Outpatient Encounter [id number] 05/15 [facility] Outpatient Encounter [id number] 05/27 [facility] Outpatient Encounter [id number] 05/27 [facility] Outpatient Encounter [id number] Diagnos is: ICD-10- CM Z12.11 Encount er for screeni ng for maligna nt neoplas m of colon Yris OWEN 06/02 [facility] N [facility] Outpatient Encounter [id number] 06/02 [facility] N [facility] Outpatient Encounter [id number] 06/04 [facility] Outpatient Encounter [id number] 06/05 [facility] Outpatient Encounter [id number] TREVOR GONZALEZ 06/19 [facility] Outpatient Encounter [id number] O'GLADISNOLAN Arias THER 06/20 [facility] Outpatient Encounter [id number] 06/24 [facility] OFFICE O/P EST LOW 20 MIN [id number] Diagnos is: ICD-10- CM M25.531 Pain in right wrist AGUILA SALDIVAR 06/25 [facility] Outpatient Encounter [id number] 06/26 [facility] Procedures Combined list of: 1) Procedures from Department of Veterans Affairs facilities going back up to thelast 18 months, not all VA non-surgical procedures are included; 2) All procedures from the Department of Defense facilities. Procedure Procedure Type Code Date Perfomer Comments Sourc e Vaginal delivery only (with or without episiotomy and/or forceps); including care Vaginal delivery only (with or without episiotomy and/or forceps); including care 75485 04/09/2011 [facility] Nasal/sinus endoscopy, surgical; with biopsy, polypectomy or debridement (separate procedure) Nasal/sinus endoscopy, surgical; with biopsy, polypectomy or debridement (separate procedure) [id number] 04/09/2009 1 nasal polyp removed from each side. [facility] Vaginal delivery only (with or without episiotomy and/or forceps); including care Vaginal delivery only (with or without episiotomy and/or forceps); including care 10298 04/09/2008 [facility] Social History Combined list of available smoking, tobacco, and other social history from Department of Defense and Veterans Affairs facilities. Social History Type Response Date Comment Sourc e Tobacco smoking status NHIS VA-TOBACCO NEVER USED CIGARETTES 05/01/2024 [facility] History of tobacco use VA-TOBACCO NEVER USED OTHER TYPE 05/01/2024 [facility] History of tobacco use VA-TOBACCO NEVER USED 12/20/2020 [facility] Smoking Status Never (less than 100 in lifetime) 08/12/2020 Unknown Organization Sex Representation Female 05/17/2020 Unknow n Organization Smoking Status Never Unknown Or ganization Sexual Orientation Amb[facility] tory Pharmacy Gender identity Ambulator y Pharmacy Assessment and Plan Combined list of future care activities from Department of Defense and Veterans Affairs facilities (e.g., assessment and plan notes, appointments, orders, and referrals). Additional future care activities may be listed in the Plan of Care section. Result Assessment and Plan Date Source Assessment and Plan Extracted from:Title : Office Clinic Note Author: CHENTE GARCIA MD Date: 08/12/20 1. 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 - No conditions requiring MEB or urgent referral. - No new health concerns at this time. VSS. Exam unremarkable for gross abnormalities. - Separation paperwork (DD Forms 2806-, 2808, and Separation MHA) reviewed and completed electronically. - Additional paperwork filled out, signed, and returned to pt - No past or current conditions identified preventing member from - f/u w/ PCM prn Ordered: Office Visit Level 3 Est [id number] 06/30/2024 [facility] Plan of Care List of future care activities from Department of Veterans Affairs facilities. Additional future care activities may be listed in the Assessment and Plan section. Date/Time Care Activity Care Activity Detail Facili ty 08/04/2024 AMBULATORY - MEDICINE AMBULATORY - MEDICI [facility] Functional Status Combined list of recent functional and cognitive assessments recorded at Department of Defense and Veterans Affairs (VA).VA Functional Wagoner Measurement (FIM) Scale: 1 = Total Assistance (Subject = 0% +), 2 = Maximal Assistance (Subject = 25% +), 3 = Moderate Assistance (Subject = 50% +), 4 = Minimal Assistance (Subject = 75% +), 5 = Supervision, 6 = Modified Wagoner (Device), 7 = Complete Wagoner (Timely, Safely). Assessment Date/Time Source Assessment Type Assessment Skill Assessment Score Assessment Details No data available for this section
--- OUTSIDE RECORDS SUMMARY | 2024-06-30 18:34 | XMS_ITS | Continuity of Care Document ---
Author Name [facility] Organization [facility] Care Team Providers Care Head Setter Name Role Phone [facility] Unavailable Unavailable Problems Combined list of problems from [facility] and [facility] facilities. It does not include entries [...] Unknown Organization Exposure to potentially hazardous substance ([facility] [place] [id number] ) Active Condition May 07, 2024 Entered By: OTILIA JEAN-BAPTISTE Comment: Entered automatically through ALLAN Problem List documentation program [facility] Snoring Active Condition [facility] Diagnosis: ICD-10-CM M25.531 Pain in right wrist Active Diagnosis [facility] Diagnosis: ICD-10-CM Z12.11 Encounter for screening for malignant neoplasm of colon Active Diagnosis [facility] Diagnosis: ICD-10-CM M54.50 Low back pain, unspecified Active Diagnosis [facility] Diagnosis: ICD-10-CM Z01.419 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 Medication Details Route Status Patient Instructions Prescription Expires Prescription Number Last Dispense Date Ordering Provider Order Date Order Qty Source BISACODYL 5MG TAB,EC TAKE TWO TABLETS BY MOUTH ONE TIME TAKE BISACODY L TABLETS AT 4PM ON AFTERNOO N PRIOR TO TEST. CALL WITH ANY QUESTION S ABOUT THESE INSTRUCT IONS. MAIL TAKE BISACODY L TABLETS AT 4PM ON OO N PRIOR TO TEST. CALL WITH ANY QUESTION S ABOUT THESE INSTRUCT IONS. MAIL ORAL ACTIVE 07/02/2024 [id number] OTILIA OWEN 2024 2 [facility] cetirizine 10 mg oral tablet [...] DAY FOR OSTEOART HRITIS ORAL ACTIVE 06/26/2025 [id number] 5 BART SALDIVAR 2024 90 [facility] METHYLPREDN ISOLONE 4MG TAB DOSEPAK,21 TAKE TABLETS BY MOUTH DIRECTED FOR INFLAMMA TION TAKE 6 TABLETS BY MOUTH ON DAY ONE, THEN DECREASE BY ONE TABLET DAILY UNTIL GONE. TAKE WITH FOOD. ORAL 05/31/2024 [id number] 5 BART SALDIVAR 2024 1 [facility] nitrofurant oin macrocrysta ls-monohydr ate 100 mg [...] READ YOUR INSTRUCT IONS!) ORAL ACTIVE 07/02/2024 [id number] 5 OTILIA OWEN 2024 1 [facility] phenazopyri dine 200 mg oral [...] BEFORE GI PROCEDUR E ORAL ACTIVE 07/02/2024 [id number] 5 OTILIA OWEN 2024 8 [facility] sulfamethox azole-trime thoprim 800 mg-160 [...] skin periorbitally and nasal drainage/conge stipeter [id number] [employer] Immunizations Combined list of available immunizations from the Department of Defense and Veterans Affairs facilities. 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 Status Comments Source INFLUENZA, SPLIT VIRUS, TRIVALENT, PF 2024 RICK OCHOA V RIGHT DELTO ID [id number] 140 complet ed [facility] COVID-19 (PFIZER), MRNA, LNP-S, PF, 30 MCG/0.3 ML DOSE 1 2020 208 complet ed [employer] influenza virus vaccine, inactivated 2019 [id number] Se[employer] complet ed influenza virus vaccine, inactivat ed 02/26/20 Given Ambulat ory Pharmac y influenza, injectable, quadrivalent- pf 2018 [id number] 150 [employer] complet ed influenza , injectabl e, quadrival ent-pf 04/04/19 Given Ambulat ory Pharmac y influenza, injectable, quadrivalent- pf 2017 zLexiief t Arm [id number] 150 [employer]irus complet ed influenza , injectabl e, quadrival ent-pf 01/09/18 Given Ambulat ory Pharmac y influenza, injectable, quadrivalent- pf 2017 zAsp[facility] t Arm [id number] 150 [employer] complet ed influenza , injectabl e, quadrival ent-pf 06/11/17 Given Ambulat ory Pharmac y influenza, seasonal, injectable-pf 2016 [facility] t Arm [id number] 140 [facility] influenza , seasonal, injectabl e-pf 04/20/16 Given Ambulat ory Pharmac y influenza, live, intranasal,qu adrivalent 2014 [id number] [facility] t ed influenza , live, intranasa l,quadriv alent 02/09/15 Given Ambulat ory Pharmac y influenza, live, intranasal,qu adrivalent 2013 [id number] 149 [facility] t ed influenza , live, intranasa l,quadriv alent 01/01/14 Given Ambulat ory Pharmac y influenza, live, intranasal,qu adrivalent 2012 [id number] 149 [facility] t ed influenza , live, intranasa l,quadriv alent 01/10/13 Given Ambulat ory Pharmac y influenza, seasonal, injectable 2011 [id number] 141 sanofi pasteur complet ed influenza , seasonal, injectabl e 01/02/12 Given Ambulat ory Pharmac y tetanus, diphtheria, acellular pertu is 2011 [id number] 115 GlaxoSmithKli nv complet ed tetanus, diphtheri a, acellular pertussis 11/28/11 Given Ambulat ory Pharmac y influenza, seasonal, injectable 2010 [id number] 141 sanofi pasteur complet ed influenza , seasonal, injectabl e 12/29/10 Given Ambulat ory Pharmac y influenza virus vaccine, live 2009 [id number] 111 Med[employer] Inc comple t ed influenza virus vaccine, live 01/31/10 Given Ambulat ory Pharmac y Novel influenza-H1N 1-09, injectable 2008 [id number] 127 Novartis Pharmaceutica complet ed Novel influenza -[id number], injectabl e 03/26/09 Given Ambulat ory Pharmac y influenza virus vaccine,split 2008 [id number] 15 CSL [facility] complet ed influenza virus vaccine,s plit 02/08/09 Given Ambulat ory Pharmac y influenza virus vaccine, live 2007 [id number] 111 Med[employer] Inc comple t ed influenza virus vaccine, live 01/17/08 Given Ambulat ory Pharmac y hepatitis B adult vaccine 2007 [id number] 43 GlaxoSmithKli ne complet ed hepatitis B adult vaccine 01/17/08 Given Ambulat ory Pharmac y tuberculin purified protein derivative 2007 [id number] 96 sanofi pasteur complet ed tuberculi n purified protein derivativ e 05/06/07 Given Ambulat ory Pharmac y hepatitis B adult vaccine 2007 [id number] 43 GlaxoSmithKli ne complet ed hepatitis B adult vaccine 04/26/07 Given Ambulat ory Pharmac y anthrax vaccine 2007 [id number] Emer[employer] complet ed anthrax vaccine 04/26/07 Given Ambulat ory Pharmac y anthrax vaccine 2007 [id number] [employer] complet ed anthrax vaccine 04/12/07 Given Ambulat ory Pharmac y typhoid Vi capsular polysaccharid e vac 2006 [id number] 101 sanofi pasteur complet ed typhoid Vi capsular polysacch aride vac 03/25/07 Given Ambulat ory Pharmac y hepatitis B adult vaccine 2006 [id number] 43 GlaxoSmithKli ne complet ed hepatitis B adult vaccine 03/25/07 Given Ambulat ory Pharmac y anthrax vaccine 2006 [id number] [employer] complet ed anthrax vaccine 03/25/07 Given Ambulat ory Pharmac y vaccinia (smallpox) vaccine 2006 [id number] Pianpian complet ed vaccinia (smallpox ) vaccine 03/25/07 Given Ambulat ory Pharmac y influenza virus vaccine, live 2006 [id number] 111 Med[employer] Inc comple t ed influenza virus vaccine, live 02/25/07 Given Ambulat ory Pharmac y tuberculin purified protein derivative 2005 [id number] 96 sanofi pasteur complet ed tuberculi n purified protein derivativ e 02/12/06 Given Ambulat ory Pharmac y influenza virus vaccine, live 2005 [id number] 111 Med[employer] Inc comple t ed influenza virus vaccine, live 02/12/06 Given Ambulat ory Pharmac y influenza virus vaccine,split 2004 [id number] 15 sanofi pasteur complet ed influenza virus vaccine,s plit 03/28/05 Given Ambulat ory Pharmac y influenza virus vaccine, live 2004 [id number] 111 [employer] comple t ed influenza virus vaccine, live 05/04/04 Given Ambulat ory Pharmac y rabies vaccine, IM 2003 [id number] [employer] complet ed rabies vaccine, IM 01/22/04 Given Ambulat ory Pharmac y rabies vaccine, IM 2003 [id number] 175 [employer] complet ed rabies vaccine, IM 12/30/03 Given Ambulat ory Pharmac y rabies vaccine, IM 2003 [id number] 175 [employer] complet ed rabies vaccine, IM 12/22/03 Given Ambulat ory Pharmac y rabies vaccine, IM 2003 [id number] 175 [employer] complet ed rabies vaccine, IM 12/18/03 Given Ambulat ory Pharmac y rabies vaccine, IM 2003 [id number] 175 [employer] complet ed rabies vaccine, IM 12/15/03 Given Ambulat ory Pharmac y meningococcal polysaccharid e (MPSV4) 2002 [id number] 32 sanofi pasteur complet ed meningoco ccal polysacch aride (MPSV4) 03/09/03 Given Ambulat ory Pharmac y influenza virus vaccine, whole virus 2002 [id number] 16 Novartis Pharmaceutica ls complet ed influenza virus vaccine, whole virus 03/09/03 Given Ambulat ory Pharmac y influenza virus vaccine, whole virus 2001 [id number] 16 sanofi pasteur complet ed influenza virus [...] Pharmac y tuberculin purified protein derivative 2001 [id number] 96 [facility] complet ed tuberculi n purified protein derivativ e 05/28/01 Given Ambulat ory Pharmac y influenza virus vaccine, whole virus 2000 [id number] 16 sanofi pasteur complet ed influenza virus vaccine, whole virus 02/22/01 Given Ambulat ory Pharmac y Results Combined list of recent chemistry, hematology and other laboratory results from Department of Defense and Veterans Affairs, ranging from 15 months to all on record, depending upon the facility. Order Name Results Value Reference Range Date Interpretation Specimen Comments Source CBC LEUKOCYTES [#/VOLUME] IN BLOOD BY AUTOMATED COUNT 3.4 10*3/u L 3.6 - 11.2 04/15 L Specimen Type: BLOOD No comment entered. Ordering Provider: AGUILA SALDIVAR Report Released Date/Time: Apr 14, 2024 01:03 PM Reporting Lab: [facility] [address] [place] [address] Performing Lab: [facility] [address] [place] [address] CBC ERYTHROCYTES [#/VOLUME] IN BLOOD BY AUTOMATED COUNT 3.98 10*6/u L 3.60 - 5.00 04/15 Specimen Type: BLOOD No comment entered. Ordering Provider: AGUILA SALDIVAR Report Released Date/Time: Apr 14, 2024 01:03 PM Reporting Lab: [facility] [address] [place] [address] Performing Lab: [facility] [address] [place] [address] CBC HEMOGLOBIN [MASS/VOLUME ] IN BLOOD 14.1 g/dL 11.0 - 14.9 04/15 Specimen Type: BLOOD No comment entered. Ordering Provider: AGUILA SALDIVAR Report Released Date/Time: Apr 14, 2024 01:03 PM Reporting Lab: [facility] [address] [facility] [address] Performing Lab: [address] [phone] [place] [address] CBC HEMATOCRIT [VOLUME FRACTION] OF BLOOD 40.2 32.6 - 43.4 04/15 Specimen Type: BLOOD No comment entered. Ordering Provider: AGUILA SALDIVAR Report Released Date/Time: Apr 14, 2024 01:03 PM Reporting Lab: [place] [address] [facility] [address] Performing Lab: [address] [phone] [place] [address] CBC MCV [ENTITIC VOLUME] BY AUTOMATED COUNT 101.0 fL 80.0 - 100.0 04/15 H Specimen Type: BLOOD No comment entered. Ordering Provider: AGUILA SALDIVAR Report Released Date/Time: Apr 14, 2024 01:03 PM Reporting Lab: [place] [address] [facility] [address] Performing Lab: [address] [phone] [place] [address] CBC MCH [ENTITIC MASS] BY AUTOMATED COUNT 35.4 pg 27.0 - 34.0 04/15 H Specimen Type: BLOOD No comment entered. Ordering Provider: AGUILA SALDIVAR Report Released Date/Time: Apr 14, 2024 01:03 PM Reporting Lab: [facility] [address] Performing Lab: [address] [phone] [place] [address] CBC MCHC [MASS/VOLUME ] BY AUTOMATED COUNT 35.1 g/dL 33.0 - 36.0 04/15 Specimen Type: BLOOD No comment entered. Ordering Provider: AGUILA SALDIVAR Report Released Date/Time: Apr 14, 2024 01:03 PM Reporting Lab: [facility] [address] Performing Lab: [facility] [address] [facility] [address] [facility] CBC PLATELETS [#/VOLUME] IN BLOOD BY AUTOMATED COUNT 210 10*3/u L 150 - 400 04/15 Specimen Type: BLOOD No comment entered. Ordering Provider: AGUILA SALDIVAR Report Released Date/Time: Apr 14, 2024 01:03 PM Reporting Lab: [address] [address] Performing Lab: [phone] [place] [address] CBC PLATELET MEAN VOLUME [ENTITIC VOLUME] IN BLOOD BY AUTOMATED COUNT 9.0 fL 7.5 - 11.2 04/15 Specimen Type: BLOOD No comment entered. Ordering Provider: AGUILA SALDIVAR Report Released Date/Time: Apr 14, 2024 01:03 PM Reporting Lab: [address] [address] Performing Lab: [address] [phone] [place] [address] CBC ERYTHROCYTE DISTRIBUTION WIDTH [RATIO] BY AUTOMATED COUNT 11.3 11.8 - 15.1 04/15 L Specimen Type: BLOOD No comment entered. Ordering Provider: AGUILA SALDIVAR Report Released Date/Time: Apr 14, 2024 01:03 PM Reporting Lab: [address] [address] Performing Lab: [phone] [place] [address] CBC LYMPHOCYTES/ 100 LEUKOCYTES IN BLOOD BY AUTOMATED COUNT 37 04/15 Specimen Type: BLOOD No comment entered. Ordering Provider: AGUILA SALDIVAR Report Released Date/Time: Apr 14, 2024 01:03 PM Reporting Lab: [facility] [address] [place] [phone] Performing Lab: [address] [phone] [place] [address] CBC MONOCYTES/10 0 LEUKOCYTES IN BLOOD BY AUTOMATED COUNT 14 04/15 Specimen Type: BLOOD No comment entered. Ordering Provider: AGUILA SALDIVAR Report Released Date/Time: Apr 14, 2024 01:03 PM Reporting Lab: [facility] [address] [facility] [address] Performing Lab: [facility] [address] [place] [id number] CBC NEUTROPHILS/ 100 LEUKOCYTES IN BLOOD BY AUTOMATED COUNT 44 04/15 Specimen Type: BLOOD No comment entered. Ordering Provider: AGUILA SALDIVAR Report Released Date/Time: Apr 14, 2024 01:03 PM Reporting Lab: [facility] [address] [place] [address] Performing Lab: [facility] [address] [place] [address] CBC EOSINOPHILS/ 100 LEUKOCYTES IN BLOOD BY AUTOMATED COUNT 4 04/15 Specimen Type: BLOOD No comment entered. Ordering Provider: AGUILA SALDIVAR Report Released Date/Time: Apr 14, 2024 01:03 PM Reporting Lab: [facility] [address] [place] [phone] Performing Lab: [facility] [address] CBC BASOPHILS/10 0 LEUKOCYTES IN BLOOD BY AUTOMATED COUNT 2 04/15 Specimen Type: BLOOD No comment entered. Ordering Provider: AGUILA SALDIVAR Report Released Date/Time: Apr 14, 2024 01:03 PM Reporting Lab: [facility] [address] [place] [address] Performing Lab: [facility] [address] CBC LYMPHOCYTES [#/VOLUME] IN BLOOD BY AUTOMATED COUNT 1.26 10*3/u L 0.77 - 4.50 04/15 Specimen Type: BLOOD No comment entered. Ordering Provider: AGUILA SALDIVAR Report Released Date/Time: Apr 14, 2024 01:03 PM Reporting Lab: [facility] [address] [place] [phone] Performing Lab: [place] [address] [place] [address] CBC MONOCYTES [#/VOLUME] IN BLOOD BY AUTOMATED COUNT 0.49 10*3/u L 0.19 - 0.80 04/15 Specimen Type: BLOOD No comment entered. Ordering Provider: AGUILA SALDIVAR Report Released Date/Time: Apr 14, 2024 01:03 PM Reporting Lab: [place] [phone] Performing Lab: [address] CBC NEUTROPHILS [#/VOLUME] IN BLOOD BY AUTOMATED COUNT 1.49 10*3/u L 2.10 - 8.00 04/15 L Specimen Type: BLOOD No comment entered. Ordering Provider: AGUILA SALDIVAR Report Released Date/Time: Apr 14, 2024 01:03 PM Reporting Lab: [address] [address] Performing Lab: [address] CBC EOSINOPHILS [#/VOLUME] IN BLOOD BY AUTOMATED COUNT 0.12 10*3/u L 0.00 - 0.60 04/15 Specimen Type: BLOOD No comment entered. Ordering Provider: AGUILA SALDIVAR Report Released Date/Time: Apr 14, 2024 01:03 PM Reporting Lab: [place] [phone] Performing Lab: [address] CBC BASOPHILS [#/VOLUME] IN BLOOD BY AUTOMATED COUNT 0.05 10*3/u L 0.00 - 0.20 04/15 Specimen Type: BLOOD No comment entered. Ordering Provider: AGUILA SALDIVAR Report Released Date/Time: Apr 14, 2024 01:03 PM Reporting Lab: [address] [place] [address] Performing Lab: [facility] [address] [facility] [phone] [place] [address] COMPREHENSI VE METABOLIC PANEL CREATININE [MASS/VOLUME ] IN SERUM OR PLASMA 0.53 mg/dL 0.6 - 1.1 04/15 L Specimen Type: PLASMA Comment: No hemolysis noted. Ordering Provider: AGUILA SALDIVAR Report Released Date/Time: Apr 14, 2024 01:03 PM Reporting Lab: [facility] [address] [place] [phone] Performing Lab: [phone] [place] [address] COMPREHENSI VE METABOLIC PANEL UREA NITROGEN [MASS/VOLUME ] IN SERUM OR PLASMA 15.5 mg/dL 9.0 - 25.0 04/15 Specimen Type: PLASMA Comment: No hemolysis noted. Ordering Provider: AGUILA SALDIVAR Report Released Date/Time: Apr 14, 2024 01:03 PM Reporting Lab: [facility] [address] [place] [phone] Performing Lab: [address] [phone] [place] [address] COMPREHENSI VE METABOLIC PANEL GLUCOSE [MASS/VOLUME ] IN SERUM OR PLASMA 82 mg/dL 72 - 99 04/15 Specimen Type: PLASMA Comment: No hemolysis noted. Ordering Provider: AGUILA SALDIVAR Report Released Date/Time: Apr 14, 2024 01:03 PM Reporting Lab: [facility] [address] [place] [phone] Performing Lab: [phone] [place] [address] COMPREHENSI VE METABOLIC PANEL SODIUM [MOLES/VOLUM E] IN SERUM OR PLASMA 138 meq/L 136 - 145 04/15 Specimen Type: PLASMA Comment: No hemolysis noted. Ordering Provider: AGUILA SALDIVAR Report Released Date/Time: Apr 14, 2024 01:03 PM Reporting Lab: [address] [place] [address] Performing Lab: [facility] [address] [facility] [address] [facility] COMPREHENSI VE METABOLIC PANEL POTASSIUM [MOLES/VOLUM E] IN SERUM OR PLASMA 4.2 meq/L 3.5 - 5 04/15 Specimen Type: PLASMA Comment: No hemolysis noted. Ordering Provider: AGUILA SALDIVAR Report Released Date/Time: Apr 14, 2024 01:03 PM Reporting Lab: [facility] [address] [facility] [address] Performing Lab: [address] [phone] [place] [address] COMPREHENSI VE METABOLIC PANEL CHLORIDE [MOLES/VOLUM E] IN SERUM OR PLASMA 103 meq/L 98 - 107 04/15 Specimen Type: PLASMA Comment: No hemolysis noted. Ordering Provider: AGUILA SALDIVAR Report Released Date/Time: Apr 14, 2024 01:03 PM Reporting Lab: [facility] [address] [facility] [address] Performing Lab: [address] [phone] [place] [address] COMPREHENSI VE METABOLIC PANEL CARBON DIOXIDE, TOTAL [MOLES/VOLUM E] IN SERUM OR PLASMA 25 meq/L 22 - 31 04/15 Specimen Type: PLASMA Comment: No hemolysis noted. Ordering Provider: AGUILA SALDIVAR Report Released Date/Time: Apr 14, 2024 01:03 PM Reporting Lab: [facility] [address] [place] [phone] Performing Lab: [facility] [address] [place] [phone] [place] [address] COMPREHENSI VE METABOLIC PANEL CALCIUM [MASS/VOLUME ] IN SERUM OR PLASMA 9.9 mg/dL 8.4 - 10.4 04/15 Specimen Type: PLASMA Comment: No hemolysis noted. Ordering Provider: AGUILA SALDIVAR Report Released Date/Time: Apr 14, 2024 01:03 PM Reporting Lab: [facility] [address] [facility] [address] Performing Lab: [facility] [address] [place] [phone] [facility] COMPREHENSI VE METABOLIC PANEL PROTEIN [MASS/VOLUME ] IN SERUM OR PLASMA 8.1 g/dL 6 - 8.6 04/15 Specimen Type: PLASMA Comment: No hemolysis noted. Ordering Provider: AGUILA SALDIVAR Report Released Date/Time: Apr 14, 2024 01:03 PM Reporting Lab: [facility] [address] [facility] [address] Performing Lab: [address] [phone] [place] [address] COMPREHENSI VE METABOLIC PANEL ALBUMIN [MASS/VOLUME ] IN SERUM OR PLASMA 4.5 g/dL 3.4 - 5 04/15 Specimen Type: PLASMA Comment: No hemolysis noted. Ordering Provider: AGUILA SALDIVAR Report Released Date/Time: Apr 14, 2024 01:03 PM Reporting Lab: [facility] [address] [facility] [address] Performing Lab: [facility] [address] [place] [address] [phone] [place] [address] COMPREHENSI VE METABOLIC PANEL BILIRUBIN.TO MICHAEL [MASS/VOLUME ] IN SERUM OR PLASMA 0.9 mg/dL 0.2 - 1.2 04/15 Specimen Type: PLASMA Comment: No hemolysis noted. Ordering Provider: AGUILA SALDIVAR Report Released Date/Time: Apr 14, 2024 01:03 PM Reporting Lab: [facility] [address] [facility] [address] Performing Lab: [facility] [address] [place] [phone] [place] [address] COMPREHENSI VE METABOLIC PANEL ALKALINE PHOSPHATASE [ENZYMATIC ACTIVITY/VOL UME] IN SERUM OR PLASMA 78 U/L 40 - 150 04/15 Specimen Type: PLASMA Comment: No hemolysis noted. Ordering Provider: AGUILA SALDIVAR Report Released Date/Time: Apr 14, 2024 01:03 PM Reporting Lab: [facility] [address] [facility] [address] Performing Lab: [facility] [address] [facility] [phone] [place] [address] COMPREHENSI VE METABOLIC PANEL ASPARTATE AMINOTRANSFE RASE [ENZYMATIC ACTIVITY/VOL UME] IN SERUM OR PLASMA 58 U/L 5 - 34 04/15 H Specimen Type: PLASMA Comment: No hemolysis noted. Ordering Provider: AGUILA SALDIVAR Report Released Date/Time: Apr 14, 2024 01:03 PM Reporting Lab: [facility] [address] [facility] [address] Performing Lab: [phone] [place] [address] COMPREHENSI VE METABOLIC PANEL ALANINE AMINOTRANSFE RASE [ENZYMATIC ACTIVITY/VOL UME] IN SERUM OR PLASMA 42 U/L 8 - 40 04/15 H Specimen Type: PLASMA Comment: No hemolysis noted. Ordering Provider: AGUILA SALDIVAR Report Released Date/Time: Apr 14, 2024 01:03 PM Reporting Lab: [place] [address] [facility] [address] Performing Lab: [place] [address] [facility] [phone] [place] [address] COMPREHENSI VE METABOLIC PANEL GLOMERULAR FILTRATION RATE/1.73 SQ M.PREDICTED [VOLUME RATE/AREA] IN SERUM, PLASMA OR BLOOD BY CREATININE-B ASED FORMULA (CKD-EPI 2020) 115.4 60 04/15 Specimen Type: PLASMA Comment: No hemolysis noted. Ordering Provider: AGUILA SALDIVAR Report Released Date/Time: Apr 14, 2024 01:03 PM Reporting Lab: [facility] [address] Performing Lab: [place] [address] [facility] [phone] [place] [address] HGA1C HEMOGLOBIN A1C/HEMOGLOB IN.TOTAL IN BLOOD 4.9 4.0 - 6.0 04/15 Specimen Type: BLOOD No comment entered. Ordering Provider: AGUILA SALDIVAR Report Released Date/Time: Apr 14, 2024 01:03 PM Reporting Lab: [facility] [address] [facility] [address] Performing Lab: [facility] [address] [facility] [address] [facility] LIPID PANEL (STL) CHOLESTEROL [MASS/VOLUME ] IN SERUM OR PLASMA 218 mg/dL 0 - 200 04/15 H Specimen Type: PLASMA Comment: No hemolysis noted. Ordering Provider: AGUILA SALDIVAR Report Released Date/Time: Apr 14, 2024 01:03 PM Reporting Lab: [facility] [address] [facility] [address] Performing Lab: [facility] [facility] [address] [facility] [id number] [place] [address] LIPID PANEL (STL) TRIGLYCERIDE [MASS/VOLUME ] IN SERUM OR PLASMA 98 mg/dL 0 - 150 04/15 Specimen Type: PLASMA Comment: No hemolysis noted. Ordering Provider: AGUILA SALDIVAR Report Released Date/Time: Apr 14, 2024 01:03 PM Reporting Lab: [facility] [address] [facility] [address] Performing Lab: [facility] [address] [facility] [id number] [place] [address] LIPID PANEL (STL) CHOLESTEROL IN LDL [MASS/VOLUME ] IN SERUM OR PLASMA BY CALCULATION 129 mg/dL 04/15 Specimen Type: PLASMA Comment: No hemolysis noted. Ordering Provider: AGUILA SALDIVAR Report Released Date/Time: Apr 14, 2024 01:03 PM Reporting Lab: [facility] [address] [facility] [address] Performing Lab: [facility] [address] [facility] [address] [facility] LIPID PANEL (STL) CHOLESTEROL IN HDL [MASS/VOLUME ] IN SERUM OR PLASMA 69 mg/dL 40 04/15 Specimen Type: PLASMA Comment: No hemolysis noted. Ordering Provider: AGUILA SALDIVAR Report Released Date/Time: Apr 14, 2024 01:03 PM Reporting Lab: [facility] [address] [facility] [address] Performing Lab: [facility] [address] [place] [id number] [place] [address] TSH W/ REFLEX FT4 (STL) THYROTROPIN [UNITS/VOLUM E] IN SERUM OR PLASMA 1.623 u[IU]/ mL 0.47 - 5 04/15 Specimen Type: PLASMA No comment entered. Ordering Provider: AGUILA SALDIVAR Report Released Date/Time: Apr 14, 2024 01:03 PM Reporting Lab: [facility] [address] [phone] Performing Lab: [place] [address] URINALYSIS (STL-PB) COLOR OF URINE Light- Yellow 04/15 Specimen Type: URINE No comment entered. Ordering Provider: AGUILA SALDIVAR Report Released Date/Time: Apr 14, 2024 01:06 PM Reporting Lab: [facility] [address] [facility] [address] Performing Lab: [address] URINALYSIS (STL-PB) BILIRUBIN.TO MICHAEL [PRESENCE] IN URINE BY TEST STRIP Negati vemg/d L 04/15 Specimen Type: URINE No comment entered. Ordering Provider: AGUILA SALDIVAR Report Released Date/Time: Apr 14, 2024 01:06 PM Reporting Lab: [facility] [address] [facility] [address] Performing Lab: [facility] [address] [facility] [address] [place] [address] URINALYSIS (STL-PB) PH OF URINE BY TEST STRIP 7.0 5.0 - 8.0 04/15 Specimen Type: URINE No comment entered. Ordering Provider: AGUILA SALDIVAR Report Released Date/Time: Apr 14, 2024 01:06 PM Reporting Lab: [facility] [address] [facility] [address] Performing Lab: [facility] [address] [facility] [address] [facility] URINALYSIS (STL-PB) APPEARANCE OF URINE Clear 04/15 Specimen Type: URINE No comment entered. Ordering Provider: AGUILA SALDIVAR Report Released Date/Time: Apr 14, 2024 01:06 PM Reporting Lab: [facility] [address] [facility] [address] Performing Lab: [place] [address] [address] [facility] [address] [facility] URINALYSIS (STL-PB) NITRITE [PRESENCE] IN URINE BY TEST STRIP Negati vemg/d L 04/15 Specimen Type: URINE No comment entered. Ordering Provider: AGUILA SALDIVAR Report Released Date/Time: Apr 14, 2024 01:06 PM Reporting Lab: [place] [address] [address] [facility] [address] Performing Lab: [place] [address] [address] [facility] [address] [facility] URINALYSIS (STL-PB) GLUCOSE [MASS/VOLUME ] IN URINE BY TEST STRIP Normal mg/dL 04/15 Specimen Type: URINE No comment entered. Ordering Provider: AGUILA SALDIVAR Report Released Date/Time: Apr 14, 2024 01:06 PM Reporting Lab: [place] [address] [address] [facility] [address] Performing Lab: [facility] [address] [facility] URINALYSIS (STL-PB) PROTEIN [MASS/VOLUME ] IN URINE BY TEST STRIP Negati vemg/d L 04/15 Specimen Type: URINE No comment entered. Ordering Provider: AGUILA SALDIVAR Report Released Date/Time: Apr 14, 2024 01:06 PM Reporting Lab: [place] [address] [facility] [address] Performing Lab: [place] [address] [facility] [address] [facility] URINALYSIS (STL-PB) URN.UROBILIN OGEN Normal mg/dL 04/15 Specimen Type: URINE No comment entered. Ordering Provider: AGUILA SALDIVAR Report Released Date/Time: Apr 14, 2024 01:06 PM Reporting Lab: [place] [address] [facility] [address] Performing Lab: [place] [address] [facility] [address] [facility] URINALYSIS (STL-PB) HEMOGLOBIN [MASS/VOLUME ] IN URINE BY TEST STRIP Negati vemg/d L 04/15 Specimen Type: URINE No comment entered. Ordering Provider: AGUILA SALDIVAR Report Released Date/Time: Apr 14, 2024 01:06 PM Reporting Lab: [place] [address] [facility] [address] Performing Lab: [place] [address] [facility] [address] [facility] URINALYSIS (STL-PB) KETONES [MASS/VOLUME ] IN URINE BY TEST STRIP Negati vemg/d L 04/15 Specimen Type: URINE No comment entered. Ordering Provider: AGUILA SALDIVAR Report Released Date/Time: Apr 14, 2024 01:06 PM Reporting Lab: [place] [address] [facility] [address] Performing Lab: [place] [address] [facility] [address] [facility] URINALYSIS (STL-PB) URN.LEUK.EST . Negati vemg/d L 04/15 Specimen Type: URINE No comment entered. Ordering Provider: AGUILA SALDIVAR Report Released Date/Time: Apr 14, 2024 01:06 PM Reporting Lab: [place] [address] [facility] [address] Performing Lab: [place] [address] [facility] [phone] [place] [address] URINALYSIS (STL-PB) SPECIFIC GRAVITY OF URINE 1.018 04/15 Specimen Type: URINE No comment entered. Ordering Provider: AGUILA SALDIVAR Report Released Date/Time: Apr 14, 2024 01:06 PM Reporting Lab: [facility] [address] [place] [address] Performing Lab: [place] [phone] [place] [address] VITAMIN D, 25-HYDROXY 25-HYDROXYVI TAMIN D3 [MASS/VOLUME ] IN SERUM OR PLASMA 65.1 ng/mL 30 - 96 04/15 Specimen Type: SERUM No comment entered. Ordering Provider: AGUILA SALDIVAR Report Released Date/Time: Apr 14, 2024 01:03 PM Reporting Lab: [address] [address] Performing Lab: [place] [phone] [place] [address] Vital Signs Combined list of inpatient and outpatient Vital Signs from Department of Defense and Veterans Affairs, ranging from 12 months to all on record, depending upon the facility. Vital Sign Value Date Comments Source Blood Pressure Manual Automatic 08[facility]12[facility] Respiratory Rate 16 br/min 08/12/2020 20:41:00 [facility] Systolic Blood Pressure 111 mm[Hg] 08/12/2020 20:41:[address] [place], [place] [address]B Clinic Diastolic Blood Pressure 75 mm[Hg] 08/12/2020 20:41:[address] [place] [address] Clinic Peripheral Pulse Rate 72 bpm 08/12/2020 20:41:[address] [place], [place] [address]B Clinic Mean Arterial Pressure, Calc 87 mm[Hg] 08/12/2020 20:41:00 [facility] BP Site Right arm 08/12/2020 20:41:00 [facility] Temperature Oral 36.8 Xiomara 08/12/2020 20:41:[address] [place] [address] Clinic SYSTOLIC BLOOD PRESSURE 107 06/25/2024 11:32:46 [facility] DIASTOLIC BLOOD PRESSURE 73 06/25/2024 11:32:[address] [facility] PULSE OXIMETRY 96 06/25/2024 11:32:[address] [facility] WEIGHT 143 06/25/2024 11:32:[address] BMI 24 kg/m2 06/25/2024 11:32:[address] PAIN 0 06/25/2024 11:32:[address] HEIGHT 65 06/25/2024 11:32:46 [facility] TEMPERATURE 98.1 06/25/2024 11:32:[address] [facility] PULSE 73 06/25/2024 11:32:[address] [facility] RESPIRATION 20 06/25/2024 11:32:[address] [facility] SYSTOLIC BLOOD PRESSURE 100 05/01/2024 13:57:28 [facility] DIASTOLIC BLOOD PRESSURE 64 05/01/2024 13:57:28 [facility] PULSE OXIMETRY 98 05/01/2024 13:57:[address] [facility] WEIGHT 147.2 05/01/2024 13:57:[address] [facility] BMI 24 kg/m2 05/01/2024 13:57:[address] PAIN 6 05/01/2024 13:57:[address] [facility] HEIGHT 66 05/01/2024 13:57:28 [facility] TEMPERATURE 97.4 05/01/2024 13:57:[address] [facility] PULSE 73 05/01/2024 13:57:[address] [facility] RESPIRATION 20 05/01/2024 13:57:[address] [facility] Encounters Combined list of: 1) Encounters from Department of Veterans Affairs facilities going backup to the last 18 months, not all VA inpatient encounters are included; 2) Encounters from the Department of Defense facilities going backup to 280 months. Location Location Details Encounter Type Encounter Number Reason For Visit Attending Provider ADM Date DC Date Status Disposition Source [facility] Outpatient Encounter [id number] TREVOR GONZALEZ 05/25 [facility] Outpatient Encounter [id number] 03/11 [facility] N [facility] Outpatient Encounter [id number] JACOB SAINI 03/11 [facility] Outpatient Encounter [id number] 03/19 [facility] O/P EST LOW 20 MIN [id number] Diagnos is: ICD-10- CM M54.41 Lumbago with sciatic a, right side SILVER,AGUILA H C 04/14 [facility] [place]AT[place]MIN [id number] Diagnos is: ICD-10- CM Z23 Encount er for immuniz atermelinda RICK OCHOA V 04/15 [facility] Outpatient Encounter [id number] 04/15 [facility] Outpatient Encounter [id number] 04/15 [facility] Outpatient Encounter [id number] 04/15 [facility] Outpatient Encounter [id number] 04/16 [facility] Outpatient Encounter [id number] Shivam HANEY S 04/29 [facility] Outpatient Encounter [id number] 05/01 [facility] Outpatient Encounter [id number] 05/01 [facility] OBTAINING SCREEN PAP SMEAR [id number] Diagnos is: ICD-10- CM 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) w/o abn finding s AGUILA SALDIVAR H C 05/01 [facility] Outpatient Encounter [id number] 05/01 [facility] Outpatient Encounter [id number] 05/02 [facility] Outpatient Encounter [id number] [place] TAVARES T 05/07 [facility] Outpatient Encounter [id number] 05/08 [facility] ACUP WO ESTIM 1ST 15 MIN [id number] Diagnos is: ICD-10- CM M54.50 Low back pain, unspeci fied DREW STRONG TTHEW J 05/12 [facility] Outpatient Encounter [id number] 05/15 [facility] Outpatient Encounter [id number] 05/27 [facility] Outpatient Encounter [id number] 05/27 [facility] Outpatient Encounter [id number] Diagnos is: ICD-10- CM Z12.11 Encount er for screeni ng for maligna nt neoplas m of colon Yris OWEN 06/02 [facility] N [facility] Outpatient Encounter [id number] 06/02 [facility] N [facility] Outpatient Encounter [id number] 06/04 [facility] Outpatient Encounter [id number] 06/05 [facility] Outpatient Encounter [id number] TREVOR GONZALEZ 06/19 [facility] Outpatient Encounter [id number] O'GLADISNOLAN Arias THER 06/20 [facility] Outpatient Encounter [id number] 06/24 [facility] O/P EST LOW 20 MIN [id number] Diagnos is: ICD-10- CM M25.531 Pain in right wrist AGUILA SALDIVAR 06/25 [facility] Outpatient Encounter [id number] 06/26 [facility] Procedures Combined list of: 1) Procedures from [...] or without episiotomy and/or forceps); including care [id number] 04/09/2011 [facility] Nasal/sinus endoscopy, surgical; with biopsy, polypectomy or debridement (separate procedure) Nasal/sinus endoscopy, surgical; with biopsy, polypectomy or debridement (separate procedure) [id number] 04/09/2009 1 nasal polyp removed from each side. [facility] Vaginal delivery only (with or without episiotomy and/or forceps); including care Vaginal delivery only (with or without episiotomy and/or forceps); including care [id number] 04/09/2008 [facility] Social History Combined list of available smoking, tobacco, and other social history from Department of Defense and Veterans Affairs facilities. Social History Type Response Date Comment Sourc e Tobacco smoking status NHIS VA-TOBACCO NEVER USED CIGARETTES 05/01/2024 [facility] History of tobacco use VA-TOBACCO NEVER USED OTHER TYPE 05/01/2024 [facility] History of tobacco use VA-TOBACCO NEVER USED 12/20/2020 [facility] Smoking Status Never (less [...] MD Date: 08/12/20 1. E XAM, OCCUPATIONAL, MCFP OR SEPARATION FROM AF83, LONG - Pt reports all issues on [...] prn Ordered: Office Visit Level 3 Est [id number] 06/30/2024 [facility] Plan of Care List of future care activities from Department of Veterans Affairs facilities. Additional future care activities may be listed in the Assessment and Plan section. Date/Time Care Activity Care Activity Detail Facili ty 08/04/2024 AMBULATORY - MEDICINE AMBULATORY - MEDICI [facility] Functional Status Combined list of recent functional and cognitive assessments recorded at Department of Defense and Veterans Affairs (VA).VA Functional Meade Measurement (FIM) Scale: 1 = Total Assistance (Subject = 0% +), 2 = Maximal Assistance (Subject = 25% +), 3 = Moderate Assistance (Subject = 50% +), 4 = Minimal Assistance (Subject = 75% +), 5 = Supervision, 6 = Modified Meade (Device), 7 = Complete Meade (Timely, Safely). Assessment Date/Time Source Assessment Type Assessment Skill Assessment Score Assessment Details No data available for this section
== END 2024-06-30 17:05 | disposition home or self-care (01) ==
PROVIDERS: Emergency Provider Nurse Practitioner Family; PCP Nurse Practitioner
DX: N30.00 Acute cystitis without hematuria (principal); B96.20 Unspecified Escherichia coli [E. coli] as the cause of diseases classified elsewhere
CPT/HCPCS: 81003; 87086; 87186; 99213; G0463

== ENCOUNTER 2024-10-20 13:40 | Emergency (ER) | payer OTHER, SELFPAY ==
--- NOTE | 2024-10-20 13:41 | ED_ITS ---
HPI - Female Genitourinary General Chief complaint: Urogenital-Female Stated complaint: uti Source: patient and RN notes reviewed Mode of arrival: ambulatory Limitations: no limitations History of Present Illness HPI Narrative: Patient is a 49-year-old female who presents to the [facility] with complaints possible UTI. Patient endorses dysuria, urinary frequency, and urinary urgency for couple days. She denies pelvic pain, flank pain known hematuria. Denies recent fevers. States that her symptoms feel similar to those she has experienced in past with prior UTIs. States last UTI was approximately 4 months ago. Related Data Home Medications ?Medication ?Instructions ?Recorded ?Confirmed ?Last Taken ?Type levonorgestrel (Mirena) See Rx Instructions .Route .COMPLEX 07/16/21 02/25/24 Unknown History progesterone micronized 100 mg 100 mg PO QAM 02/25/24 02/25/24 Unknown History capsule testosterone 50 mg/5 gram (1 %) 1 tube transdermal QAM 02/25/24 02/25/24 Unknown History transdermal gel Allergies Allergy/AdvReac Type Severity Reaction Status Date / Time No Known Allergies Allergy Verified 10/20/24 13:49 Review of Systems Review of Systems: CONSTITUTIONAL: Denies fever, chills, or sweats. EYES: Denies visual changes, redness, or discharge. ENT: Denies otalgia and sore throat CARDIOVASCULAR: Denies chest pain, palpitations, or edema. RESPIRATORY: Denies cough or dyspnea. GASTROINTESTINAL: Denies abdominal pain, nausea, vomiting, or diarrhea. GENITOURINARY: Reports dysuria and frequency but denies hematuria. SKIN: Denies rash or itching. MUSCULOSKELETAL: Denies back pain, joint pain, or myalgia. NEUROLOGIC: Denies headache, numbness, or weakness. Pertinent positives per HPI. [facility] Past Medical History Medical History History of sinus problem Urinary tract infection Surgical History Surgical History H/O sinus surgery polyps removed and sinus cleaned out Social History Social History Smoking status: Never smoker Alcohol intake: current Substance use type: does not use Living arrangements: with family Gender identity (if verbalized by the patient): Female Comments At the time of my signature, I reviewed and agree with the nursing past medical, surgical, social, and family history. There is no relevant family history pertinent to the patient complaint. Exam Narrative: GENERAL: This is a well-nourished, well-developed patient, in no apparent distress. HEAD: normocephalic, atraumatic. EYES: Sclera clear/white. Vision is grossly intact. EARS: External ears normal. Hearing grossly intact. NOSE: External nose normal with no obvious nasal discharge, nares without redness, no rhinorrhea. THROAT: Mucous membranes moist, posterior pharynx clear. NECK: Neck supple, non-tender without lymphadenopathy, masses or thyromegaly. CARDIOVASCULAR: Regular rate and rhythm without murmurs, gallops, or rubs. RESPIRATORY: Clear to auscultation. Breath sounds equal bilaterally. No wheezes, rales, or rhonchi. GASTROINTESTINAL: Abdomen soft, non-tender, nondistended. Bowel sounds are active. No hepato-splenomegaly, or palpable masses. No guarding. SKIN: warm, intact with no suspicious lesions or rash, good texture and turgor. NEURO: awake, alert, and oriented to person, place and time. There were no obvious focal neurologic abnormalities. BACK: Nontender without deformity or crepitance. No flank tenderness. Course Course Level of Care: Express Care Visit Vital Signs Vital signs: Vital Signs Temperature 97.3 F L 10/20/24 13:47 Pulse Rate 76 10/20/24 13:47 Respiratory Rate 18 10/20/24 13:47 Blood Pressure 106/83 10/20/24 13:47 Pulse Oximetry 100 10/20/24 13:47 Oxygen Delivery Room Air 10/20/24 13:47 Temperature 97.3 F L 10/20/24 13:47 Pulse Rate 76 10/20/24 13:47 Respiratory Rate 18 10/20/24 13:47 Blood Pressure 106/83 10/20/24 13:47 Pulse Oximetry 100 10/20/24 13:47 Oxygen Delivery Room Air 10/20/24 13:47 Reviewed MDM - Female Genitourinary MDM Narrative Medical decision making narrative: We will send a urine culture off to the lab; if the culture identifies an organism that the prescribed antibiotic will not treat, you will receive a phone call from an urgent care staff member and an appropriate antibiotic will be prescribed. -Your symptoms should begin to improve within a day of starting antibiotics. But you should finish all the antibiotic pills you get. Otherwise your infection might come back. -Also recommend: drink more fluid. It might help flush out germs, and it does no harm -Tylenol/ibuprofen as needed for pain -Follow-up with your primary care provider for urine recheck OR if your symptoms persist, change or worsen significantly before you can contact your personal physician then please, without delay, go to the emergency department for further evaluation. Differential Diagnosis Differential diagnosis: Likely urinary tract infection, vaginitis and cystitis Lab Data Attestation: I reviewed the patient's lab results. Labs: Lab Results 10/20/24 Range/Units 13:57 POC Urine Color Yellow POC Urine Clarity Cloudy POC Urine pH 7.5 POC Ur Specif [place] 1.020 POC Urine Protein 2+ (Negative) POC Ur Glucose (UA) Negative (Negative) POC Urine Ketones Negative (Negative) POC Urine Blood Trace (Negative) POC Urine Nitrite Negative (Negative) POC Urine Bilirubin Negative (Negative) POC Urine Urobilinogen 1.0 POC U Leukocyte Esteras 2+ (Negative) Critical Care Time Critical Care Time Critical Care Time: No Discharge Plan Discharge Clinical Impression: Acute cystitis with hematuria Patient Disposition: Home Condition: Stable Instructions: Antibiotic Form, Urinary Tract Infection in Women (ED) Additional Instructions: We will send a urine culture off to the lab; if the culture identifies an organism that the prescribed antibiotic will not treat, you will receive a phone call from an urgent care staff member and an appropriate antibiotic will be prescribed. -Your symptoms should begin to improve within a day of starting antibiotics. But you should finish all the antibiotic pills you get. Otherwise your infection might come back. -Also recommend: drink more fluid. It might help flush out germs, and it does no harm -Tylenol/ibuprofen as needed for pain -Follow-up with your primary care provider for urine recheck OR if your symptoms persist, change or worsen significantly before you can contact your personal physician then please, without delay, go to the emergency department for further evaluation. Patient Language: Togolese Prescriptions: New sulfamethoxazole-trimethoprim 800-160 mg tablet 1 tablet PO Q12H 7 Days Qty: 14 0RF No Action Mirena 20 mcg/24 hours (7 yrs) 52 mg Intrauterine Device See Rx Instructions .ROUTE .COMPLEX Rx Instructions: intrauterinely progesterone micronized 100 mg Capsule 100 mg PO QAM Rx Instructions: off 7 days; repeat cycle testosterone 50 mg/5 gram (1 %) Gel 1 tube TRANSDERMAL QAM Follow-up/Referrals: Alessandro,SHAMIR King [Primary Care Provider] - Time of Disposition: 13:59
[2024-10-20 13:47] VITALS: BP 106/83; PULSE 76; RESP 18; TEMP 36.3; O2SAT 100
--- OUTSIDE RECORDS SUMMARY | 2024-10-20 13:47 | XMS_ITS ---
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 Name Role Phone Candace Francois Primary Care Provider Unavailab le Jaiden Villalobos Unavailable [phone] [facility], Provider Unavailable Unavailab le [facility] Conversion Encounter Medications Medication SIG (Take, Route, [...] Location Date Provider Diagnosis FELIPA Phillips[facility]and[facility] [address] 09/22/2023 Provider [facility] Plan Of Treatment No Information Progress Notes * Chuck LEIGH:1975 (49 yo F)Acc No.[id number]:09/22/2023 Patient: Jeannine FRASER Provider: Thomas Hunt :1975 A ge:48 Y S ex:Female Date:09/22/2023 Address:[address] [place] [address] Shivam MACIAS, [id number] Pcp:Candace Francois Subjective: * Chief Complaints: * 1 . [facility] To [facility] Conversion Encounter. * Medical History: * Medications: [...] Codes: * Electronic signature of Prov kirstier [facility] on 10/20/2024 at 01:46 PM CDT Sign off status: Pending * Provider: Thomas Hunt Date: 09/22/2023 Generated for Josesito dove/Mirtha/Jc on: 10/20/2024 01:46 PM CDT
--- OUTSIDE RECORDS SUMMARY | 2024-10-20 13:47 | XMS_ITS | Clinical Summary ---
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 Gender Identity Not on file Sexual Orientation Not on file Plan of Treatment Health Maintenance Due Date Last Done Comments Hepatitis C Virus (HCV) Screening 1977 HPV/Cotest 07/09/2007 Cervical Cancer Screening (CCS) 10/26/2014 Pap Smear 10/26/2014 10/27/2011 Cologuard 2022 Colonoscopy 2022 Colorectal Cancer Screening 2022 Immunochemical Fecal Occult Blood 2022 SARS-COV-2 Immunization ( season) 2023 04/13/2021, 07/29/2020, 07/11/2020, Additional history exists Influenza Immunization (#1) 12/08/202402/07, 02/26/2020, 04/04/2019, Additional history exists Respiratory Syncytial Virus (RSV) Immunization (Adult) (1 - 1-dose 75+ series) 2052 Meningococcal Immunization (ACWY) Aged Out 03/09/2003 No longer eligible based on patient's age to complete this topic Hepatitis B Immunization Completed 008, 04/26/2007, 03/25/2007 DTaP/Tdap/Td Immunization Discontinued 11/28/2011, 02/ TdaP Immunization Completed 11/28/2011 Human Papillomavirus (HPV) Immunization Aged Out No longer eligible based on patient's age to complete this topic Pneumococcal Immunization Combined Aged Out No longer eligible based on patient's age to complete this topic Rotavirus Immunization Aged Out No lo nger eligible based on patient's age to complete this topic
--- OUTSIDE RECORDS SUMMARY | 2024-10-20 13:47 | XMS_ITS | Patient Health Record ---
Author Organization [facility] Address [address] [place], [place] [id number] Support Name Relationship Address Phone Marty Gonzalez Emergency Contact [address] [place], [place] [address] Heather Gonzalez Guarantor Unknown [phone] Reason For Referral No Information Medications Medication [...] Date Coverage End Date [employer] [address] [place] [phone] [id number] Heather Gonzalez Self - patient is the insured Medical (General) History Surgical History Surgery Date(Month/Year)
--- OUTSIDE RECORDS SUMMARY | 2024-10-20 13:47 | XMS_ITS | Clinical Summary ---
Author Organization [facility] Address [address] [place] [address] Phone Care Team Providers Care Director Of Early Childhood Name Role Phone Unavailable Primary Care Provider Unavailabl e Allergies No known active allergies Medications OTHER Apply 1 Application to affected area daily. Testosterone/pro gesterone Active multivitamin (DAILY-KAEL) tablet Take 1 Tablet by mouth daily. Active COLLAGEN MISC 1 Tablet by Misc.(Non-Drug; Combo Route) route daily. 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 Gender Identity Not on file Sexual Orientation Not on file Last Filed Vital Signs Vital Sign Reading Time Taken Comments Blood Pressure 125/86 06/01/2023 4:05 PM CURB SUPERVISOR Pulse 84 06/01/2023 4:05 PM CURB SUPERVISOR Temperature 36.5 C (97.7 F) 06/01/2023 3:50 PM CURB SUPERVISOR Respiratory Rate 16 06/01/2023 4:05 PM CURB SUPERVISOR Oxygen Saturation 100% 06/01/2023 4:05 PM CURB SUPERVISOR Inhaled Oxygen Concentration - - Weight 65.3 kg (144 lb) 05/29/2023 8:47 AM CURB SUPERVISOR Height 167.6 cm (5' 6) 05/29/2023 8:47 AM CURB SUPERVISOR Body Mass Index 23.24 05/29/2023 8:47 AM CURB SUPERVISOR Plan of Treatment Health Maintenance Due Date Last Done Comments HEPATITIS B VACCINES (1 of 3 - 19+ 3-dose series) 1996 01/17/2008, 04/26/2007, 03/25/2007 HPV/Cotest (21-29) 1998 HPV/Cotest (30-65) 07/09/2007 CERVICAL CANCER SCREENING 10/26/2014 PAP SMEAR 10/26/2014 10/27/2011 BREAST CANCER SCREENING 2017 DTAP/TDAP/TD VACCINES (2 - T d or Tdap) 11/27/2021 11/28/2011 COLORECTAL SCREENING 2022 Colorectal Cancer Screening 2022 FIT-DNA Q 3 years 2022 FIT/FOBT Q 1 year 2022 Flex Sig/CT Colonography Q 5 years 2022 COVID-19 Vaccine (2023-2 5 season) 2023 04/13/2021, 07/29/2020, 07/11/2020, Additional history exists INFLUENZA VACCINE (#1) 2024 , 02/26/2020, 04/04/2019, Additional history exists Medical Devices Implanted Type Area Arcade Game Technician Device Identifier Shelf Expiration Date Model / Serial / Lot Breast Saline Smth Rnd Mod 475ml [id number] - [id number] Implanted:Qty: 1 on 06/01/2023 by Tucker Forrester MD at [facility] Right: Breast [employer]OR FEL[employer] 07/24/2023 [id number] / [id number] / [id number] Description:CHARGE REMOVED I MPLANT SUPPLIED BY [employer]ORS OFFICE-RD Breast Saline Smth Rnd Mod 475ml [id number] - [id number] Implanted:Qty: 1 on 06/01/2023 by Tucker Forrester MD at [facility] Left: Breast [employer] F[employer]IC[employer]O 02/11/2027 [id number] / [id number] / [id number] Description:CHARGE REMOVED I MPLANT SUPPLIED BY DOCTORS OFFICE-RD
--- OUTSIDE RECORDS SUMMARY | 2024-10-20 13:47 | XMS_ITS | Patient Health Record ---
Author Organization [facility] ([address]) Address [address] [place] [address] Care Team Providers Care Territory Service Representative Name Role Phone Candace Francois Primary Care Provider Jaiden Worley Unavailable [phone] Allergies No Known Allergies Reason For Referral No Information Medications Medication SIG (Take, Route, Frequency, Duration) Notes Start Date End Date Status PREDNISONE 10 mg 3 tab(s) orally once a day; Duration: 5 day(s) 05/09/2022 Active EpiPen 2-Isaias 0.3 MG/0.3ML as directed intramuscularly once; Duration: 30 days Active NASAL WASHES N/A DIRECTED INTRANASALLY NEEDED; Duration: 30 *Please review for potential replacement for e-prescription and drug interaction check* Active FLUTICASONE NASAL 50 mcg/inh 2 spray(s) in each nostril BID; Duration: 30 day(s) Active CETIRIZINE 10 mg 1 tab(s) orally once a day; Duration: 30 days Active Olopatadine HCl 0.1 % 1 gtt in each affected eye 2 times a day; Duration: 30 day(s) 12/22/2021 Not-Taking predniSONE 10 MG 3 tab(s) orally once a day; Duration: 5 day(s) 05/09/2022 Active Cetirizine HCl 10 MG 1 tab(s) orally once a day; Duration: 30 days Active EPIPEN 2-ISAIAS 0.3 mg as directed intramuscularly once; Duration: 30 days Active Fluticasone Propionate 50 MCG/ACT 2 spray(s) in each nostril BID; Duration: 30 day(s) Active OLOPATADINE OPHTHALMIC 0.1% 1 gtt in each affected eye 2 times a day; Duration: 30 day(s) 12/22/2021 Not-Taking Immunizations Vaccine Route [...] Status Risk Notes Problem Chronic allergic conjunctivitis (53117844) Other chronic allergic conjunctivitis (H10.45) Active confirmed Problem Allergic rhinitis caused by pollen (disorder) (52626083) Allergic rhinitis due to pollen (J30.1) Active confirmed Problem Allergic rhinitis caused by animal hair and dander (265480114381029) Allergic rhinitis due to animal (cat) (dog) hair and dander (J30.81) Active confirmed Problem Allergic rhinitis (64357726) Other allergic rhinitis (J30.89) Active confirmed Problem Allergic rhinitis caused by pollen (disorder) (39266137) Allergic rhinitis due to pollen (J30.1) Active confirmed Problem Allergic rhinitis caused by animal hair and dander (426016594667525) Allergic rhinitis due to animal (cat) (dog) hair and dander (J30.81) Active confirmed Problem Allergic rhinitis (44177647) Other allergic rhinitis (J30.89) Active confirmed Problem Chronic allergic conjunctivitis (54645488) Other chronic allergic conjunctivitis (H10.45) Active confirmed Problem Eruption of skin (779245058) Rash and other nonspecific skin eruption (R21) Active confirmed Plan Of Treatment No Information Insurance Providers Payer Name Payer Address Payer Phone Subscriber Number Group Number Insured Name Patient Relationship to Insured Coverage Start Date Coverage End Date [facility] [address] [place] [phone] [id number] Ismael Gonzalez Spouse - patient is the [...]
--- OUTSIDE RECORDS SUMMARY | 2024-10-20 13:48 | XMS_ITS | Continuity of Care Document ---
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 It does not include entries [...] Unknown Organization Exposure to potentially hazardous substance ([facility] [id number]) Active Condition May 07 5 Entered By: OTILIA JEAN-BAPTISTE Comment: Entered automatically through [facility]AN Problem List documentation program [facility] Snoring Active Condition [facility] Diagnosis: ICD-10-CM Z01.818 Encounter for other preprocedural examination Active Diagnosis [facility] Diagnosis: ICD-10-CM Z12.11 Encounter for screening for malignant neoplasm of colon Active Diagnosis [facility] Diagnosis: ICD-10-CM M25.531 Pain in right wrist Active Diagnosis [facility] Diagnosis: ICD-10-CM M54.50 Low back pain, unspecified Active Diagnosis [facility] Diagnosis: ICD-10-CM Z01.419 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 MAIL ORAL 07/02/2024 [id number] OTILIA OWEN Tu 2024 2 [facility] cetirizine 10 mg oral tablet [...] DAY FOR OSTEOART HRITIS ORAL ACTIVE 06/26/2025 [id number] 5 BART SALDIVAR 2024 90 [facility] METHYLPREDN ISOLONE 4MG TAB DOSEPAK,21 TAKE TABLETS BY MOUTH DIRECTED FOR INFLAMMA TION TAKE 6 TABLETS BY MOUTH ON DAY ONE, THEN DECREASE BY ONE TABLET DAILY UNTIL GONE. TAKE WITH FOOD. ORAL 05/31/2024 [id number] 5 BART SALDIVAR 2024 1 [facility] nitrofurant oin macrocrysta ls-monohydr ate 100 mg oral capsule 0 total refill(s ) Discont inued 08/12/20202020 No Facilit y Access ocular lubricant ophthalmic gel ocular lubrican t ophthalm ic gel Start Date: 04/07/20 Status: Ordered Repeat number: 1 Ordered 2020 No Facilit y Access ocular lubricant ophthalmic solution ocular lubrican t ophthalm ic solution Start Date: 04/07/20 Stop Date: 08/12/20 Status: Disconti nued Repeat number: 1 Discont inued 08/12/20202020 No Facilit y Access olopatadine 0.1% ophthalmic solution INSTILL 1 DROP IN EACH AFFECTED EYE TWICE A DAY DIRECTED , # 5 mL, 0 total refill(s ), Acute Complet ed 12/21/20222022 5.0 Ambulat ory Pharmac y olopatadine 0.1% ophthalmic solution olopatad ine 0.1% ophthalm ic solution Start Date: 03/09/20 Stop Date: 08/12/20 Status: Disconti nued Repeat number: 1 Discont inued 08/12/20202020 No [...] FOR TEST. READ YOUR INSTRUCT IONS!) ORAL 07/02/2024 [id number] 5 OTILIA OWEN 2024 1 [facility] phenazopyri dine 200 mg oral tablet phenazop yridine 200 mg oral tablet Start Date: 06/17/19 Stop Date: 08/12/20 Status: Disconti keena Repeat number: 1 Discont inued 08/12/20202020 No Facilit y Access phenazopyri dine 200 mg oral tablet phenazop yridine 200 mg oral tablet Start Date: 06/30/19 Stop Date: 08/12/20 Status: Disconti keena Repeat number: 1 Discont inued 08/12/20202020 No Facilit y Access SIMETHICONE 80MG TAB,CHEW CHEW AND SWALLOW FOUR TABLETS BY MOUTH DIRECTED FOR TWO DOSES BEFORE GI PROCEDUR E ORAL 07/02/2024 [id number] 5 OTILIA OWEN 2024 8 [facility] sulfamethox azole-trime thoprim 800 mg-160 [...] Site Reaction Lot Number CVX Code Drug Independent Crop Consultant Status Comments Source INFLUENZA, SPLIT VIRUS, TRIVALENT, PF 2024 RICK OCHOA V RIGHT DELTO ID [id number] complet ed Completed Series, ADMINISTE [facility] AT [facility] COVID-19 (PFIZER), MRNA, LNP-S, PF, 30 MCG/0.3 ML DOSE 1 2020 208 complet ed [employer] influenza virus vaccine, inactivated 2019 [id number] [employer] complet ed influenza virus vaccine, inactivat ed 02/26/20 Given Ambulat ory Pharmac y influenza, injectable, quadrivalent- pf 2018 [id number] 150 [employer] complet ed influenza , injectabl e, quadrival ent-pf 04/04/19 Given Ambulat ory Pharmac y influenza, injectable, quadrivalent- pf 2017 zzLef t Arm [id number] [employer] complet ed influenza , injectabl e, quadrival ent-pf 01/09/18 Given Ambulat ory Pharmac y influenza, injectable, quadrivalent- pf 2017 zzLef t Arm [id number] 150 [employer] complet ed influenza , injectabl e, quadrival ent-pf 06/11/17 Given Ambulat ory Pharmac y influenza, seasonal, injectable-pf 2016 zzLef t Arm [id number] [employer] complet ed influenza , seasonal, injectabl e-pf 04/20/16 Given Ambulat ory Pharmac y influenza, live, intranasal,qu adrivalent 2014 [id number] [facility] t ed influenza , live, intranasa l,quadriv alent 02/09/15 Given Ambulat ory Pharmac y influenza, live, intranasal,qu adrivalent 2013 [id number] [facility] t ed influenza , live, intranasa l,quadriv alent 01/01/14 Given Ambulat ory Pharmac y influenza, live, intranasal,qu adrivalent 2012 [id number] 149 [facility] t ed influenza , live, intranasa l,quadriv alent 01/10/13 Given Ambulat ory Pharmac y influenza, seasonal, injectable 2011 [id number] 141 sanofi pasteur complet ed influenza , seasonal, injectabl e 01/02/12 Given Ambulat ory Pharmac y tetanus, diphtheria, acellular pertu is 2011 [id number] 115 [employer] complet ed tetanus, diphtheri a, acellular pertussis 11/28/11 Given Ambulat ory Pharmac y influenza, seasonal, injectable 2010 [id number] sanofi pasteur complet ed influenza , seasonal, injectabl e 12/29/10 Given Ambulat ory Pharmac y influenza virus vaccine, live 2009 [id number] 111 [facility] t ed influenza virus vaccine, live 01/31/10 Given Ambulat ory Pharmac y Novel influenza-H1N 1-09, injectable 2008 [id number] 127 [employer]is [employer] ls complet ed Novel influenza -K2D0-56, injectabl e 03/26/09 Given Ambulat ory Pharmac y influenza virus vaccine,split 2008 [id number] 15 [employer] complet ed influenza virus vaccine,s plit 02/08/09 Given Ambulat ory Pharmac y influenza virus vaccine, live 2007 [id number] 111 [employer] comple t ed influenza virus vaccine, live 01/17/08 Given Ambulat ory Pharmac y hepatitis B adult vaccine 2007 [id number] 43 GlaxoSmithK[employer] ne complet ed hepatitis B adult vaccine 01/17/08 Given Ambulat ory Pharmac y tuberculin purified protein derivative 2007 [id number] sanofi pasteur complet ed tuberculi n purified protein derivativ e 05/06/07 Given Ambulat ory Pharmac y hepatitis B adult vaccine 2007 [id number] 43 GlaxoSmithKli ne complet ed hepatitis B adult vaccine 04/26/07 Given Ambulat ory Pharmac y anthrax vaccine 2007 [id number] [employer] complet ed anthrax vaccine 04/26/07 Given Ambulat ory Pharmac y anthrax vaccine 2007 [id number] 24 [employer] complet ed anthrax vaccine 04/12/07 Given Ambulat ory Pharmac y typhoid Vi capsular polysaccharid e vac 2006 [id number] 101 sanofi pasteur complet ed typhoid Vi capsular polysacch aride vac 03/25/07 Given Ambulat ory Pharmac y hepatitis B adult vaccine 2006 [id number] 43 GlaxoSmithKli ne complet ed hepatitis B adult vaccine 03/25/07 Given Ambulat ory Pharmac y anthrax vaccine 2006 [id number] [employer] complet ed anthrax vaccine 03/25/07 Given Ambulat ory Pharmac y vaccinia (smallpox) vaccine 2006 [id number] [employer] complet ed vaccinia (smallpox ) vaccine 03/25/07 Given Ambulat ory Pharmac y influenza virus vaccine, live 2006 [id number] 111 [employer] comple t ed influenza virus vaccine, live 02/25/07 Given Ambulat ory Pharmac y tuberculin purified protein derivative 2005 [id number] sanofi pasteur complet ed tuberculi n purified protein derivativ e 02/12/06 Given Ambulat ory Pharmac y influenza virus vaccine, live 2005 [id number] [employer] comple t ed influenza virus vaccine, live 02/12/06 Given Ambulat ory Pharmac y influenza virus vaccine,split 2004 [id number] sanofi pasteur complet ed influenza virus vaccine,s plit 03/28/05 Given Ambulat ory Pharmac y influenza virus vaccine, live 2004 [id number] [employer] comple t ed influenza virus vaccine, live 05/04/04 Given Ambulat ory Pharmac y rabies vaccine, IM 2003 [id number] [employer] complet ed rabies vaccine, IM 01/22/04 Given Ambulat ory Pharmac y rabies vaccine, IM 2003 [id number] 175 [employer] complet ed rabies vaccine, IM 12/30/03 Given Ambulat ory Pharmac y rabies vaccine, IM 2003 [id number] 175 [employer] complet ed rabies vaccine, IM 12/22/03 Given Ambulat ory Pharmac y rabies vaccine, IM 2003 [id number] 175 [employer] complet ed rabies vaccine, IM 12/18/03 Given Ambulat ory Pharmac y rabies vaccine, IM 2003 [id number] 175 [employer] complet ed rabies vaccine, IM 12/15/03 Given Ambulat ory Pharmac y meningococcal polysaccharid e (MPSV4) 2002 [id number] 32 sanofi pasteur complet ed meningoco ccal polysacch aride (MPSV4) 03/09/03 Given Ambulat ory Pharmac y influenza virus vaccine, whole virus 2002 [id number] 16 Nov[employer]is [employer] ls complet ed influenza virus vaccine, whole virus 03/09/03 Given Ambulat ory Pharmac y influenza virus vaccine, whole virus 2001 [id number] 16 sanofi pasteur complet ed influenza virus [...] Pharmac y tuberculin purified protein derivative 2001 [id number] 96 [facility] complet ed tuberculi n purified protein derivativ e 05/28/01 Given Ambulat ory Pharmac y influenza virus vaccine, whole virus 2000 [id number] 16 sanofi pasteur complet ed influenza virus [...] Apr 14, 2024 01:03 PM Reporting Lab: [facility] [address] [place] [phone] Performing Lab: [facility] [address] [place] [phone] [facility] COMPREHENSI VE METABOLIC PANEL UREA NITROGEN [MASS/VOLUME ] IN SERUM OR PLASMA 15.5 mg/dL 9.0 - 25.0 04/15 Specimen Type: PLASMA Comment: No hemolysis noted. Ordering Provider: AGUILA SALDIVAR Report Released Date/Time: Apr 14, 2024 01:03 PM Reporting Lab: [facility] [address] [place] [phone] Performing Lab: [facility] [address] [place] [phone] [facility] COMPREHENSI VE METABOLIC PANEL GLUCOSE [MASS/VOLUME ] IN SERUM OR PLASMA 82 mg/dL 72 - 99 04/15 Specimen Type: PLASMA Comment: No hemolysis noted. Ordering Provider: AGUILA SALDIVAR Report Released Date/Time: Apr 14, 2024 01:03 PM Reporting Lab: [facility] [address] [place] [phone] Performing Lab: [address] [phone] [place] [address] COMPREHENSI VE METABOLIC PANEL SODIUM [MOLES/VOLUM E] IN SERUM OR PLASMA 138 meq/L 136 - 145 04/15 Specimen Type: PLASMA Comment: No hemolysis noted. Ordering Provider: AGUILA SALDIVAR Report Released Date/Time: Apr 14, 2024 01:03 PM Reporting Lab: [address] [address] Performing Lab: [place] [phone] [place] [address] COMPREHENSI VE METABOLIC PANEL POTASSIUM [MOLES/VOLUM E] IN SERUM OR PLASMA 4.2 meq/L 3.5 - 5 04/15 Specimen Type: PLASMA Comment: No hemolysis noted. Ordering Provider: AGUILA SALDIVAR Report Released Date/Time: Apr 14, 2024 01:03 PM Reporting Lab: [address] [address] Performing Lab: [address] [phone] [place] [address] COMPREHENSI VE METABOLIC PANEL CHLORIDE [MOLES/VOLUM E] IN SERUM OR PLASMA 103 meq/L 98 - 107 04/15 Specimen Type: PLASMA Comment: No hemolysis noted. Ordering Provider: AGUILA SALDIVAR Report Released Date/Time: Apr 14, 2024 01:03 PM Reporting Lab: [facility] [address] [place] [phone] Performing Lab: [address] [phone] [place] [address] COMPREHENSI VE METABOLIC PANEL CARBON DIOXIDE, TOTAL [MOLES/VOLUM E] IN SERUM OR PLASMA 25 meq/L 22 - 31 04/15 Specimen Type: PLASMA Comment: No hemolysis noted. Ordering Provider: AGUILA SALDIVAR Report Released Date/Time: Apr 14, 2024 01:03 PM Reporting Lab: [facility] [address] [place] [phone] Performing Lab: [facility] [address] [place] [phone] [place] [address] COMPREHENSI VE METABOLIC PANEL CALCIUM [MASS/VOLUME ] IN SERUM OR PLASMA 9.9 mg/dL 8.4 - 10.4 04/15 Specimen Type: PLASMA Comment: No hemolysis noted. Ordering Provider: AGUILA SALDIVAR Report Released Date/Time: Apr 14, 2024 01:03 PM Reporting Lab: [address] [address] Performing Lab: [address] [phone] [place] [address] COMPREHENSI VE METABOLIC PANEL PROTEIN [MASS/VOLUME ] IN SERUM OR PLASMA 8.1 g/dL 6 - 8.6 04/15 Specimen Type: PLASMA Comment: No hemolysis noted. Ordering Provider: AGUILA SALDIVAR Report Released Date/Time: Apr 14, 2024 01:03 PM Reporting Lab: [place] [address] [facility] [address] Performing Lab: [address] [phone] [place] [address] COMPREHENSI VE METABOLIC PANEL ALBUMIN [MASS/VOLUME ] IN SERUM OR PLASMA 4.5 g/dL 3.4 - 5 04/15 Specimen Type: PLASMA Comment: No hemolysis noted. Ordering Provider: AGUILA SALDIVAR Report Released Date/Time: Apr 14, 2024 01:03 PM Reporting Lab: [address] [phone] Performing Lab: [address] [phone] [place] [address] COMPREHENSI VE METABOLIC PANEL BILIRUBIN.TO MICHAEL [MASS/VOLUME ] IN SERUM OR PLASMA 0.9 mg/dL 0.2 - 1.2 04/15 Specimen Type: PLASMA Comment: No hemolysis noted. Ordering Provider: AGUILA SALDIVAR Report Released Date/Time: Apr 14, 2024 01:03 PM Reporting Lab: [address] [address] Performing Lab: [address] [phone] [place] [address] COMPREHENSI VE METABOLIC PANEL ALKALINE PHOSPHATASE [ENZYMATIC ACTIVITY/VOL UME] IN SERUM OR PLASMA 78 U/L 40 - 150 04/15 Specimen Type: PLASMA Comment: No hemolysis noted. Ordering Provider: AGUILA SALDIVAR Report Released Date/Time: Apr 14, 2024 01:03 PM Reporting Lab: [address] [address] Performing Lab: [address] [phone] [place] [address] COMPREHENSI VE METABOLIC PANEL ASPARTATE AMINOTRANSFE RASE [ENZYMATIC ACTIVITY/VOL UME] IN SERUM OR PLASMA 58 U/L 5 - 34 04/15 H Specimen Type: PLASMA Comment: No hemolysis noted. Ordering Provider: AGUILA SALDIVAR Report Released Date/Time: Apr 14, 2024 01:03 PM Reporting Lab: [address] [address] Performing Lab: [address] [address] [facility] COMPREHENSI VE METABOLIC PANEL ALANINE AMINOTRANSFE RASE [ENZYMATIC ACTIVITY/VOL UME] IN SERUM OR PLASMA 42 U/L 8 - 40 04/15 H Specimen Type: PLASMA Comment: No hemolysis noted. Ordering Provider: AGUILA SALDIVAR Report Released Date/Time: Apr 14, 2024 01:03 PM Reporting Lab: [address] [address] Performing Lab: [address] [address] [facility] COMPREHENSI VE METABOLIC PANEL GLOMERULAR FILTRATION RATE/1.73 SQ M.PREDICTED [VOLUME RATE/AREA] IN SERUM, PLASMA OR BLOOD BY CREATININE-B ASED FORMULA (CKD-EPI 2020) 115.4 60 04/15 Specimen Type: PLASMA Comment: No hemolysis noted. Ordering Provider: AGUILA SALDIVAR Report Released Date/Time: Apr 14, 2024 01:03 PM Reporting Lab: [facility] [address] [facility] [address] Performing Lab: [facility] [address] [facility] [address] [facility] LIPID PANEL (STL) CHOLESTEROL [MASS/VOLUME ] IN SERUM OR PLASMA 218 mg/dL 0 - 200 04/15 H Specimen Type: PLASMA Comment: No hemolysis noted. Ordering Provider: AGUILA SALDIVAR Report Released Date/Time: Apr 14, 2024 01:03 PM Reporting Lab: [facility] [address] [facility] [address] Performing Lab: [facility] [address] [facility] [address] [facility] LIPID PANEL (STL) TRIGLYCERIDE [MASS/VOLUME ] IN SERUM OR PLASMA 98 mg/dL 0 - 150 04/15 Specimen Type: PLASMA Comment: No hemolysis noted. Ordering Provider: AGUILA SALDIVAR Report Released Date/Time: Apr 14, 2024 01:03 PM Reporting Lab: [facility] [address] [facility] [address] Performing Lab: [facility] [address] [facility] [address] [facility] LIPID PANEL (STL) CHOLESTEROL IN LDL [MASS/VOLUME ] IN SERUM OR PLASMA BY CALCULATION 129 mg/dL 04/15 Specimen Type: PLASMA Comment: No hemolysis noted. Ordering Provider: AGUILA SALDIVAR Report Released Date/Time: Apr 14, 2024 01:03 PM Reporting Lab: [facility] [address] [facility] [address] Performing Lab: [facility] [address] [facility] LIPID PANEL (STL) CHOLESTEROL IN HDL [MASS/VOLUME ] IN SERUM OR PLASMA 69 mg/dL 40 04/15 Specimen Type: PLASMA Comment: No hemolysis noted. Ordering Provider: AGUILA SALDIVAR Report Released Date/Time: Apr 14, 2024 01:03 PM Reporting Lab: [address] [address] Performing Lab: [address] [address] [facility] CBC LEUKOCYTES [#/VOLUME] IN BLOOD BY AUTOMATED COUNT 3.4 10*3/u L 3.6 - 11.2 04/15 L Specimen Type: BLOOD No comment entered. Ordering Provider: AGUILA SALDIVAR Report Released Date/Time: Apr 14, 2024 01:03 PM Reporting Lab: [address] [address] Performing Lab: [address] [address] [facility] CBC ERYTHROCYTES [#/VOLUME] IN BLOOD BY AUTOMATED COUNT 3.98 10*6/u L 3.60 - 5.00 04/15 Specimen Type: BLOOD No comment entered. Ordering Provider: AGUILA SALDIVAR Report Released Date/Time: Apr 14, 2024 01:03 PM Reporting Lab: [address] [address] Performing Lab: [address] [address] [facility] CBC HEMOGLOBIN [MASS/VOLUME ] IN BLOOD 14.1 g/dL 11.0 - 14.9 04/15 Specimen Type: BLOOD No comment entered. Ordering Provider: AGUILA SALDIVAR Report Released Date/Time: Apr 14, 2024 01:03 PM Reporting Lab: [address] [address] Performing Lab: [address] [phone] CBC HEMATOCRIT [VOLUME FRACTION] OF BLOOD 40.2 32.6 - 43.4 04/15 Specimen Type: BLOOD No comment entered. Ordering Provider: AGUILA SALDIVAR Report Released Date/Time: Apr 14, 2024 01:03 PM Reporting Lab: [facility] [address] [place] [phone] Performing Lab: [place] [phone] [place] [address] CBC MCV [ENTITIC VOLUME] BY AUTOMATED COUNT 101.0 fL 80.0 - 100.0 04/15 H Specimen Type: BLOOD No comment entered. Ordering Provider: AGUILA SALDIVAR Report Released Date/Time: Apr 14, 2024 01:03 PM Reporting Lab: [address] [address] Performing Lab: [place] [phone] CBC MCH [ENTITIC MASS] BY AUTOMATED COUNT 35.4 pg 27.0 - 34.0 04/15 H Specimen Type: BLOOD No comment entered. Ordering Provider: AGUILA SALDIVAR Report Released Date/Time: Apr 14, 2024 01:03 PM Reporting Lab: [address] [address] Performing Lab: [address] [phone] [place] [address] CBC MCHC [MASS/VOLUME ] BY AUTOMATED COUNT 35.1 g/dL 33.0 - 36.0 04/15 Specimen Type: BLOOD No comment entered. Ordering Provider: AGUILA SALDIVAR Report Released Date/Time: Apr 14, 2024 01:03 PM Reporting Lab: [place] [phone] Performing Lab: [place] [phone] CBC PLATELETS [#/VOLUME] IN BLOOD BY AUTOMATED COUNT 210 10*3/u L 150 - 400 04/15 Specimen Type: BLOOD No comment entered. Ordering Provider: AGUILA SALDIVAR Report Released Date/Time: Apr 14, 2024 01:03 PM Reporting Lab: [facility] [address] [facility] [address] Performing Lab: [facility] [address] [facility] [phone] [place] [address] CBC PLATELET MEAN VOLUME [ENTITIC VOLUME] IN BLOOD BY AUTOMATED COUNT 9.0 fL 7.5 - 11.2 04/15 Specimen Type: BLOOD No comment entered. Ordering Provider: AGUILA SALDIVAR Report Released Date/Time: Apr 14, 2024 01:03 PM Reporting Lab: [facility] [address] [place] [address] Performing Lab: [address] CBC ERYTHROCYTE DISTRIBUTION WIDTH [RATIO] BY AUTOMATED COUNT 11.3 11.8 - 15.1 04/15 L Specimen Type: BLOOD No comment entered. Ordering Provider: AGUILA SALDIVAR Report Released Date/Time: Apr 14, 2024 01:03 PM Reporting Lab: [facility] [address] [place] [address] Performing Lab: [facility] [address] [place] [phone] [place] [address] CBC LYMPHOCYTES/ 100 LEUKOCYTES IN BLOOD BY AUTOMATED COUNT 37 04/15 Specimen Type: BLOOD No comment entered. Ordering Provider: AGUILA SALDIVAR Report Released Date/Time: Apr 14, 2024 01:03 PM Reporting Lab: [facility] [address] [facility] [address] Performing Lab: [facility] [address] [place] [address] CBC MONOCYTES/10 0 LEUKOCYTES IN BLOOD BY AUTOMATED COUNT 14 04/15 Specimen Type: BLOOD No comment entered. Ordering Provider: AGUILA SALDIVAR Report Released Date/Time: Apr 14, 2024 01:03 PM Reporting Lab: [facility] [address] [facility] [address] Performing Lab: [facility] [address] [facility] [phone] [place] [address] CBC NEUTROPHILS/ 100 LEUKOCYTES IN BLOOD BY AUTOMATED COUNT 44 04/15 Specimen Type: BLOOD No comment entered. Ordering Provider: AGUILA SALDIVAR Report Released Date/Time: Apr 14, 2024 01:03 PM Reporting Lab: [facility] [address] [place] [phone] Performing Lab: [facility] [address] [facility] [phone] [place] [address] CBC EOSINOPHILS/ 100 LEUKOCYTES IN BLOOD BY AUTOMATED COUNT 4 04/15 Specimen Type: BLOOD No comment entered. Ordering Provider: AGUILA SALDIVAR Report Released Date/Time: Apr 14, 2024 01:03 PM Reporting Lab: [place] [phone] Performing Lab: [address] [phone] [place] [address] CBC BASOPHILS/10 0 LEUKOCYTES IN BLOOD BY AUTOMATED COUNT 2 04/15 Specimen Type: BLOOD No comment entered. Ordering Provider: AGUILA SALDIVAR Report Released Date/Time: Apr 14, 2024 01:03 PM Reporting Lab: [place] [address] [facility] [address] Performing Lab: [address] [phone] [place] [address] CBC LYMPHOCYTES [#/VOLUME] IN BLOOD BY AUTOMATED COUNT 1.26 10*3/u L 0.77 - 4.50 04/15 Specimen Type: BLOOD No comment entered. Ordering Provider: AGUILA SALDIVAR Report Released Date/Time: Apr 14, 2024 01:03 PM Reporting Lab: [address] [address] Performing Lab: [place] [address] [facility] [phone] [place] [address] CBC MONOCYTES [#/VOLUME] IN BLOOD BY AUTOMATED COUNT 0.49 10*3/u L 0.19 - 0.80 04/15 Specimen Type: BLOOD No comment entered. Ordering Provider: AGUILA SALDIVAR Report Released Date/Time: Apr 14, 2024 01:03 PM Reporting Lab: [address] [address] Performing Lab: [address] [phone] CBC NEUTROPHILS [#/VOLUME] IN BLOOD BY AUTOMATED COUNT 1.49 10*3/u L 2.10 - 8.00 04/15 L Specimen Type: BLOOD No comment entered. Ordering Provider: AGUILA SALDIVAR Report Released Date/Time: Apr 14, 2024 01:03 PM Reporting Lab: [place] [address] Performing Lab: [address] CBC EOSINOPHILS [#/VOLUME] IN BLOOD BY AUTOMATED COUNT 0.12 10*3/u L 0.00 - 0.60 04/15 Specimen Type: BLOOD No comment entered. Ordering Provider: AGUILA SALDIVAR Report Released Date/Time: Apr 14, 2024 01:03 PM Reporting Lab: [address] [address] Performing Lab: [address] [id number] [place] [address] CBC BASOPHILS [#/VOLUME] IN BLOOD BY AUTOMATED COUNT 0.05 10*3/u L 0.00 - 0.20 04/15 Specimen Type: BLOOD No comment entered. Ordering Provider: AGUILA SALDIVAR Report Released Date/Time: Apr 14, 2024 01:03 PM Reporting Lab: [place] [id number] Performing Lab: [address] [phone] HGA1C HEMOGLOBIN A1C/HEMOGLOB IN.TOTAL IN BLOOD 4.9 4.0 - 6.0 04/15 Specimen Type: BLOOD No comment entered. Ordering Provider: AGUILA SALDIVAR Report Released Date/Time: Apr 14, 2024 01:03 PM Reporting Lab: [facility] [address] [place] [address] Performing Lab: [phone] TSH W/ REFLEX FT4 (STL) THYROTROPIN [UNITS/VOLUM E] IN SERUM OR PLASMA 1.623 u[IU]/ mL 0.47 - 5 04/15 Specimen Type: PLASMA No comment entered. Ordering Provider: AGUILA SALDIVAR Report Released Date/Time: Apr 14, 2024 01:03 PM Reporting Lab: [address] [address] Performing Lab: [address] VITAMIN D, 25-HYDROXY 25-HYDROXYVI TAMIN D3 [MASS/VOLUME ] IN SERUM OR PLASMA 65.1 ng/mL 30 - 96 04/15 Specimen Type: SERUM No comment entered. Ordering Provider: AGUILA SALDIVAR Report Released Date/Time: Apr 14, 2024 01:03 PM Reporting Lab: [address] [phone] Performing Lab: [phone] [place] [address] URINALYSIS (STL-PB) COLOR OF URINE Light- Yellow 04/15 Specimen Type: URINE No comment entered. Ordering Provider: AGUILA SALDIVAR Report Released Date/Time: Apr 14, 2024 01:06 PM Reporting Lab: [address] [address] Performing Lab: [address] [phone] [place] [address] URINALYSIS (STL-PB) BILIRUBIN.TO MICHAEL [PRESENCE] IN URINE BY TEST STRIP Negati vemg/d L 04/15 Specimen Type: URINE No comment entered. Ordering Provider: AGUILA SALDIVAR Report Released Date/Time: Apr 14, 2024 01:06 PM Reporting Lab: [facility] [address] [facility] [address] Performing Lab: [facility] [address] [facility] [phone] [place] [address] URINALYSIS (STL-PB) PH OF URINE BY TEST STRIP 7.0 5.0 - 8.0 04/15 Specimen Type: URINE No comment entered. Ordering Provider: AGUILA SALDIVAR Report Released Date/Time: Apr 14, 2024 01:06 PM Reporting Lab: [facility] [address] [facility] [address] Performing Lab: [facility] [address] [facility] [phone] URINALYSIS (STL-PB) APPEARANCE OF URINE Clear 04/15 Specimen Type: URINE No comment entered. Ordering Provider: AGUILA SALDIVAR Report Released Date/Time: Apr 14, 2024 01:06 PM Reporting Lab: [facility] [address] [facility] [address] Performing Lab: [facility] [address] [facility] [phone] [place] [address] URINALYSIS (STL-PB) NITRITE [PRESENCE] IN URINE BY TEST STRIP Negati vemg/d L 04/15 Specimen Type: URINE No comment entered. Ordering Provider: AGUILA SALDIVAR Report Released Date/Time: Apr 14, 2024 01:06 PM Reporting Lab: [facility] [address] [facility] [address] Performing Lab: [facility] [address] [facility] [phone] URINALYSIS (STL-PB) GLUCOSE [MASS/VOLUME ] IN URINE BY TEST STRIP Normal mg/dL 04/15 Specimen Type: URINE No comment entered. Ordering Provider: AGUILA SALDIVAR Report Released Date/Time: Apr 14, 2024 01:06 PM Reporting Lab: [facility] [address] [address] Performing Lab: [facility] [address] [facility] [phone] [place] [address] URINALYSIS (STL-PB) PROTEIN [MASS/VOLUME ] IN URINE BY TEST STRIP Negati vemg/d L 04/15 Specimen Type: URINE No comment entered. Ordering Provider: AGUILA SALDIVAR Report Released Date/Time: Apr 14, 2024 01:06 PM Reporting Lab: [facility] [address] [place] [phone] Performing Lab: [facility] [address] [place] [phone] URINALYSIS (STL-PB) URN.UROBILIN OGEN Normal mg/dL 04/15 Specimen Type: URINE No comment entered. Ordering Provider: AGUILA SALDIVAR Report Released Date/Time: Apr 14, 2024 01:06 PM Reporting Lab: [facility] [address] [address] Performing Lab: [facility] [address] [facility] [phone] [place] [address] URINALYSIS (STL-PB) HEMOGLOBIN [MASS/VOLUME ] IN URINE BY TEST STRIP Negati vemg/d L 04/15 Specimen Type: URINE No comment entered. Ordering Provider: AGUILA SALDIVAR Report Released Date/Time: Apr 14, 2024 01:06 PM Reporting Lab: [facility] [address] [address] Performing Lab: [facility] [address] [phone] [place] [address] URINALYSIS (STL-PB) KETONES [MASS/VOLUME ] IN URINE BY TEST STRIP Negati vemg/d L 04/15 Specimen Type: URINE No comment entered. Ordering Provider: AGUILA SALDIVAR Report Released Date/Time: Apr 14, 2024 01:06 PM Reporting Lab: [facility] [address] [facility] [address] Performing Lab: [facility] [address] [place] [phone] [place] [address] URINALYSIS (STL-PB) URN.LEUK.EST . Negati vemg/d L 04/15 Specimen Type: URINE No comment entered. Ordering Provider: AGUILA SALDIVAR Report Released Date/Time: Apr 14, 2024 01:06 PM Reporting Lab: [facility] [address] [place] [phone] Performing Lab: [address] URINALYSIS (STL-PB) SPECIFIC GRAVITY OF URINE 1.018 04/15 Specimen Type: URINE No comment entered. Ordering Provider: AGUILA SALDIVAR Report Released Date/Time: Apr 14, 2024 01:06 PM Reporting Lab: [facility] [address] [facility] [address] Performing Lab: [place] [phone] [place] [address] Vital Signs Combined list of inpatient and outpatient Vital Signs from Department of Defense and Veterans Affairs, ranging from 12 months to all on record, depending upon the facility. Vital Sign Value Date Comments Source Blood Pressure Manual Automatic 08/12/2020 20:41:00 [facility] Respiratory Rate 16 br/min 08/12/2020 20:41:00 [facility] Systolic Blood Pressure 111 mm[Hg] 08/12/2020 20:41:00 [facility] Diastolic Blood Pressure 75 mm[Hg] 08/12/2020 20:41:00 [facility] Peripheral Pulse Rate 72 bpm 08/12/2020 20:41:00 [facility] Mean Arterial Pressure, Calc 87 mm[Hg] 08/12/2020 20:41:00 [facility] BP Site Right arm 08/12/2020 20:41:[address] [place], [place] [id number] Clinic Temperature Oral 36.8 Xiomara 08/12/2020 20:41:[address] [place] [address] Clinic SYSTOLIC BLOOD PRESSURE 107 06/25/2024 11:32:46 [facility] DIASTOLIC BLOOD PRESSURE 73 06/25/2024 11:32:46 [facility] PULSE OXIMETRY 96 06/25/2024 11:32:46 [facility] WEIGHT 143 06/25/2024 11:32:46 [facility] BMI 24 kg/m2 06/25/2024 11:32:46 [facility] PAIN 0 06/25/2024 11:32:46 [facility] HEIGHT 65 06/25/2024 11:32:46 [facility] TEMPERATURE 98.1 06/25/2024 11:32:46 [facility] PULSE 73 06/25/2024 11:32:46 [facility] RESPIRATION 20 06/25/2024 11:32:46 [facility] SYSTOLIC BLOOD PRESSURE 100 05/01/2024 13:57:28 [facility] DIASTOLIC BLOOD PRESSURE 64 05/01/2024 13:57:28 [facility] PULSE OXIMETRY 98 05/01/2024 13:57:28 [facility] WEIGHT 147.2 05/01/2024 13:57:28 [facility] BMI 24 kg/m2 05/01/2024 13:57:28 [facility] PAIN 6 05/01/2024 13:57:28 [facility] HEIGHT 66 05/01/2024 13:57:28 [facility] TEMPERATURE 97.4 05/01/2024 13:57:28 [facility] PULSE 73 05/01/2024 13:57:28 [facility] RESPIRATION 20 05/01/2024 13:57:28 [facility] Encounters Combined list of: 1) Encounters from Department of Veterans Affairs facilities going backup to the last 18 months, not all VA inpatient encounters are included; 2) Encounters from the Department of Defense facilities going backup to 280 months. Location Location Details Encounter Type Encounter Number Reason For Visit Attending Provider ADM Date DC Date Status Disposition Source [facility] Outpatient Encounter [id number] CARLOSRTEVOR 05/25 [facility] N [facility] Outpatient Encounter [id number] 03/11 [facility] N [facility] Outpatient Encounter [id number] JACOB SAINI 03/11 [facility] Outpatient Encounter [id number] 03/19 [facility] OFFICE O/P EST LOW 20 MIN [id number] Diagnos is: ICD-10- CM M54.41 Lumbago with sciatic a, right side SILVER,AGUILA H C 04/14 [facility] [place] [id number] Diagnos is: ICD-10- CM Z23 Encount er for immuniz atRICK Hartmann V 04/15 [facility] Outpatient Encounter [id number] 04/15 [facility] Outpatient Encounter [id number] 04/15 [facility] Outpatient Encounter [id number] 04/15 [facility] N [facility] Outpatient Encounter [id number] 04/16 [facility] Outpatient Encounter [id number] Shivam HANEY 04/29 [facility] Outpatient Encounter [id number] 05/01 [facility] Outpatient Encounter [id number] 05/01 [facility] OBTAINING SCREEN PAP SMEAR [id number] Diagnos is: ICD-10- CM 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 SILVER,AGUILA H C 05/01 [facility] Outpatient Encounter [id number] 05/01 [facility] Outpatient Encounter [id number] 05/02 [facility] Outpatient Encounter [id number] TAVARES,ARGENTINA T 05/07 [facility] Outpatient Encounter [id number] 05/08 [facility] / WO ESTIM 1ST 15 MIN [id number] Diagnos is: ICD-10- CM M54.50 Low back pain, unspeci fied DREW STRONG TTHEW J 05/12 [facility] Outpatient Encounter [id number] 05/15 [facility] Outpatient Encounter [id number] 05/27 [facility] Outpatient Encounter [id number] 05/27 [facility] Outpatient Encounter [id number] Diagnos is: ICD-10- CM Z12.11 Encount er for screeni ng for maligna nt neoplas m of colon LEXIE,S CHADD M 06/02 [facility] Outpatient Encounter [id number] 06/02 [facility] Outpatient Encounter [id number] 06/04 [facility] Outpatient Encounter [id number] 06/05 [facility] Outpatient Encounter [id number] TREVOR GONZALEZ L 06/19 [facility] Outpatient Encounter [id number] NOLAN PERDOMO THER 06/20 [facility] Outpatient Encounter [id number] 06/24 [facility] OFFICE O/P EST LOW 20 MIN [id number] Diagnos is: ICD-10- CM M25.531 Pain in right wrist AGUILA SALDIVAR 06/25 [facility] Outpatient Encounter [id number] 06/26 [facility] Outpatient Encounter [id number] 07/28 [facility] N [facility] Outpatient Encounter [id number] 08/01 [facility] N [facility] OFFICE O/P EST SF 10 MIN [id number] Diagnos is: ICD-10- CM Z12.11 Encount er for screeni ng for maligna nt neoplas m of colon BRANDEE HUBBARD S 08/04 [facility] Outpatient Encounter [id number] 08/04 [facility] N [facility] OFFICE O/P EST LOW 20 MIN [id number] Diagnos is: ICD-10- CM Z01.818 Encount er for other preproc edural examina SANDRA Fuchs 08/04 [facility] Outpatient Encounter [id number] AMMY VAIL 08/04 [facility] N [facility] Outpatient Encounter [id number] 09/03 [facility] N [facility] Outpatient Encounter [id number] 09/10 [facility] Procedures Combined list of: 1) Procedures from [...] or without episiotomy and/or forceps); including care [id number] 04/09/2011 [facility] Nasal/sinus endoscopy, surgical; with biopsy, polypectomy or debridement (separate procedure) Nasal/sinus endoscopy, surgical; with biopsy, polypectomy or debridement (separate procedure) [id number] 04/09/2009 1 nasal polyp removed from each side. [facility] Vaginal delivery only (with or without episiotomy and/or forceps); including care Vaginal delivery only (with or without episiotomy and/or forceps); including care [id number] 04/09/2008 [facility] Social History Combined list of available smoking, tobacco, and other social history from Department of Defense and Veterans Affairs facilities. Social History Type Response Date Comment Sourc e Tobacco smoking status NHIS VA-TOBACCO NEVER USED CIGARETTES 05/01/2024 [facility] History of tobacco use VA-TOBACCO NEVER USED OTHER TYPE 05/01/2024 [facility] History of tobacco use VA-TOBACCO NEVER USED 12/20/2020 [facility] Smoking Status Never (less than 100 in lifetime) 08/12/2020 Unknown Organization Sex Representation Female (finding) 05/17/2020 Unknown Organization Smoking Status Never Unknown Or ganization [...] MD Date: 08/12/20 1. E XAM, OCCUPATIONAL, SENIOR LIVING OR SEPARATION FROM 1.618 [employer], LONG - Pt reports all issues on 2806-04 (Report of Medical History) have been addressed. - No conditions requiring MEB or urgent referral. - No new health concerns at this time. VSS. Exam unremarkable for gross abnormalities. - Separation paperwork (DD Forms 7-, 280, and Separation MHA) reviewed and completed electronically. - Additional paperwork filled out, signed, and returned to pt - No past or current conditions identified preventing member from - f/u w/ PCM prn Ordered: Office Visit Level 3 Est [id number] 10/20/[address] [facility] Plan of Care List of future care activities from Department of Veterans Affairs facilities. Additional future care activities may be listed in the Assessment and Plan section. Date/Time Care Activity Care Activity Detail Facili ty 10/31/2024 AMBULATORY - MEDICINE AMBULATORY - MEDICI [facility] Functional Status Combined list of recent functional and cognitive assessments recorded at Department of Defense and Veterans Affairs (VA).VA Functional [place] Measurement (FIM) Scale: 1 = Total Assistance (Subject = 0% +), 2 = Maximal Assistance (Subject = 25% +), 3 = Moderate Assistance (Subject = 50% +), 4 = Minimal Assistance (Subject = 75% +), 5 = Supervision, 6 = Modified [place] (Device), 7 = Complete [place] (Timely, Safely). Assessment Date/Time Source Assessment Type Assessment Skill Assessment Score Assessment Details No data available for this section
--- OUTSIDE RECORDS SUMMARY | 2024-10-20 13:48 | XMS_ITS | Encounter Summary ---
Author Name [facility] [place] [facility] [place] [facility] [place] Address [address] [place] [address] Care Team Providers Care Pilot Name Role Phone LAZARO SALDIVAR Primary Care Provider Unavailabl e Selected Encounter This section includes the information on record at [place] for the Encounter. Date/Time Encounter Type Encounter Description Reason Provider Source Aug 04, 2024 01:45 PM Outpatient Encounter ADMIN PAT ACTIVTIES (MASNONCT) JOLENE VAIL Encounter Template Text not used by [place] Plan of Treatment: Future Appointments (+ 6 months) and Future Tests (+/- 45 days) The Plan of Treatment section includes future care activities for the patient from all [place] treatmentfacilities. This section includes future appointments and future orders which are active, pending or scheduled. Future Appointments This section includes appointments that were scheduled to occur 6 months from the date of the Encounter, up to a maximum of 20 appointments. The data comes from all [place] treatment facilities. Appointment Date/Time Appointment Type Appointme nt Facility Name Oct 31, 2024 09:30 AM AMBULATORY - MEDICINE [facility] Encounter Notes: All associated encounter notes This section contains the clinical notes associated to the Encounter. Date/Time Encounter Note(s) Provider Source Aug 04, 2024 01:45 PM ANESTHESIOLOGY CHI WSHEET: LOCAL TITLE: ANES INTRA-OP FLOWSHEET STL STANDARD TITLE: ANESTHESIOLOGY FLOWSHEET DATE OF NOTE: AUG 04, 2024@13:45 ENTRY DATE: AUG 04, 2024@13:45:16 AUTHOR: JOLENE VAIL EXP COSIGNER: URGENCY: STATUS: COMPLETED Patient: GEE LEIGH SSN: [id number] Date of Operation: 08/04/2024 Surgery Start Time: Surgery End Time: Anesthesia Care Start: 08/04/2024 13:15 Anesthesia Care End: 08/04/2024 13:44 Anesthesia Method: - Monitored 08/04/2024 13:16 (Primary), Level Of Consciousness: Sedated, Monitors Applied, Oxygen Therapy: Nasal Cannula, EtCO2 Verified: Waveform Positioning: Head Neutral, Head And Neck In Alignment With Spine, Pressure Points Padded & Checked, Eyes, Ears And Nose Free Of Pressure ASA Number: 2 Procedure: colonoscopy Diagnosis: screeing Holding, Anesthesia, PACU Drugs: --------- Lidocaine: 50 mg Propofol: 150 mg Propofol gtt: 140.064 mg Holding, Anesthesia, PACU Fluids: Normal Saline: 200 ml Resources: Headrest - Pillow Staff: --------- JOLENE VAIL PRIN. ANES. BHATIA, PARNEETA, ANES. SUPER. Procedure Date: 08/04/2024 Procedure Start Time: 08/04/2024 13:21 Procedure End Time: 08/04/2024 13:42 /jarrett/ JOLENE VAIL VACUUM CLEANER MECHANIC Signed: 08/04/2024 13:[address] [facility]
--- OUTSIDE RECORDS SUMMARY | 2024-10-20 13:48 | XMS_ITS | Encounter Summary ---
Author Name [facility] [place] [facility] [place] Address [address] [place] [address] Care Team Providers Care General Distillery Worker Name Role Phone LAZARO SALDIVAR Primary Care Provider Unavailabl e Selected Encounter This section includes the information on record at [place] for the Encounter. Date/Time Encounter Type Encounter Description Reason Provider Source Aug 04, 2024 12:15 PM OFFICE O/P EST SF 10 MIN GI ENDOSCOPY ICD-10-CM Z12.11 Encounter for screening for malignant neoplasm of colon JOLENE HUBBARD Iesha Encounter Template Text not used by [place] Assessments - Encounter Diagnoses This section includes the primary and secondary diagnoses documented for the Encounter. Date/Time Primary/Secondary Diagnosis Diagnosis Name Provider Source August 14, 2024 03:59 PM PRIMARY Encounter for screening for malignant neoplasm of colon JOLENE HUBBARD [facility] Plan of Treatment: Future Appointments (+ 6 months) and Future Tests (+/- 45 days) The Plan of Treatment section includes future care activities for the patient from all [place] treatmentfacilities. This section includes future appointments and future orders which are active, pending or scheduled. Future Appointments This section includes appointments that were scheduled to occur 6 months from the date of the Encounter, up to a maximum of 20 appointments. The data comes from all [place] treatment facilities. Appointment Date/Time Appointment Type Appointme nt Facility Name Oct 31, 2024 09:30 AM AMBULATORY - MEDICINE [facility] Encounter Notes: All associated encounter notes This section contains the clinical notes associated to the Encounter. Date/Time Encounter Note(s) Provider Source Aug 04, 2024 01:15 PM PREPROCEDURE NOTE: LOCAL TITLE: PHYSICIAN PRE-PROCEDURE ASSESSMENT ST STANDARD TITLE: PREPROCEDURE NOTE DATE OF NOTE: AUG 04, 2024@13:15 ENTRY DATE: AUG 04, 2024@13:15:42 AUTHOR: DONNA CHAVARRIA EXP COSIGNER: JOLENE HUBBARD URGENCY: STATUS: COMPLETED Airway: No significant abnormality Mallampati Score: 1 Neck Extension: Not Limited Teeth: No significant abnormality Cardiac: No significant abnormality Pulmonary: No significant abnormality Gastrointestinal: No significant abnormality Neurological: No significant abnormality ASA Score: 2 Abdominal and Pelvic Surgical History: Sedation/Anesthesia Plan: Anesthesia consult History of previous adverse reaction to sedation: No Tobacco use: No Alcohol use: No Recreational drug use: No Last oral intake: Time spent: /jarrett/ Donna Chavarria MD Gastroenterology Fellow Signed: 08/04/2024 13:18 /jarrett/ JOLENE HUBBARD MD Gastroenterology Staff Physician Cosigned: 08/04/2024 16:01 DONNA CHAVARRIA [facility]
--- OUTSIDE RECORDS SUMMARY | 2024-10-20 13:50 | XMS_ITS | Encounter Summary ---
Author Name [facility] [place] Organization [place] Address [address] [place] [address] Care Team Providers Care Cotton Header Name Role Phone LAZARO SALDIVAR Primary Care Provider Unavailabl e Selected Encounter This section includes the information on record at [place] for the Encounter. Date/Time Encounter Type Encounter Description Reason Provider Source Jun 20, 2024 01:31 PM Outpatient Encounter ADMIN PAT ACTIVTIES (MASNONCT) MAYELIN PERDOMO Encounter Template Text not used by [place] Plan of Treatment: Future Appointments (+ 6 months) and Future Tests (+/- 45 days) The Plan of Treatment section includes future care activities for the patient from all [place] treatmentfacilities. This section includes future appointments and future orders which are active, pending or scheduled. Future Appointments This section includes appointments that were scheduled to occur 6 months from the date of the Encounter, up to a maximum of 20 appointments. The data comes from all [place] treatment facilities. Appointment Date/Time Appointment Type Appointme nt Facility Name Jun 25, 2024 11:00 AM AMBULATORY - MEDICINE [facility] Aug 04, 2024 12:15 PM AMBULATORY - MEDICINE [facility] Oct 31, 2024 09:30 AM AMBULATORY - MEDICINE [facility] Radiology Reports: +/- 30 days of the [...] the Encounter. The data comes from all [place] treatment facilities. Date/Time Radiology Report Provider Source Jun 25, 2024 11:35 AM KNEE,RIGHT 3 VIEWS : HEATHER LEIGH [id number] -1975 F Exm Date: JUN 25, 2024@11:35 Req Phys: LAZARO SALDIVAR Pat Loc: [facility] PACT W PCP (Req'g Lo Img Loc: -MAIN RADIOLOGY SUITE Service: Unknown Screen: Patient answered no [facility] [address] [place] [address] (Case [id number] COMPLETE) KNEE,RIGHT 3 VIEWS (RAD Detailed) CPT:77991 Proc Modifiers : RIGHT, LATERAL, Stand AP, [place] Reason for Study: right knee pain Clinical History: Report Status: Verified Date Reported: JUN 25, 2024 Date Verified: JUN 25, 2024 Administrative Dietitian E-Sig:/ES/KIKE GARCIA MD Report: Case #[id number]. Right [...] KIKE GARCIA MD, Staff Physician - Radiologist (Administrative Dietitian) /KIKE WRIGHT [facility] Jun 25, 2024 11:35 AM KNEE,LEFT, 3 VIEWS : HEATHER LEIGH [id number] -1975 F Exm Date: JUN 25, 2024@11:35 Req Phys: LAZARO SALDIVAR Pat Loc: [facility] PACT W PCP (Req'g Lo Img Loc: -MAIN RADIOLOGY SUITE Service: Unknown Screen: Patient answered no [facility] [address] [place] [address] (Case [id number] COMPLETE) KNEE,LEFT, 3 VIEWS (RAD Detailed) CPT:77834 Proc Modifiers : LEFT, LATERAL, Stand AP, [place] Reason for Study: left knee pain Clinical History: Report Status: Verified Date Reported: JUN 25, 2024 Date Verified: JUN 25, 2024 Administrative Dietitian E-Sig:/ES/KIKE GARCIA MD Report: Case #[id number]. Left [...] KIKE GARCIA MD, Staff Physician - Radiologist (Administrative Dietitian) /KIKE WRIGHT [facility] Encounter Notes: All associated encounter notes This section contains the clinical notes associated to the Encounter. Date/Time Encounter Note(s) Provider Source Jun 20, 2024 01:31 PM PHYSICIAN LETTERS: LOCAL TITLE: NO CONTACT LETTER STL STANDARD TITLE: PHYSICIAN LETTERS DATE OF NOTE: JUN 20, 2024@13:31 ENTRY DATE: JUN 20, 2024@13:32:01 AUTHOR: BETZAIDA AMES COSIGNER: URGENCY: STATUS: COMPLETED [facility] [address] [place] [address] JUN 20, 2024 HEATHER LEIGH [address], [place] [address] Dear Heather Leigh, Thank you for choosing the [facility] as your primary choice for health care. As a partner in your health care, we are attempting to contact you because we have been unsuccessful in reaching you by phone to schedule your clinic appointment. Please call us at [phone], extension [phone] to speak to us regarding making an appointment in the [facility] clinic. Your good health [...] Sincerely, BETZAIDA AMES ADVANCED MEDICAL SUPPORT ASST LEIGH,HEATHER AMES,BETZAIDA Olguin [facility]
--- OUTSIDE RECORDS SUMMARY | 2024-10-20 13:50 | XMS_ITS | Encounter Summary ---
Author Name Department of Vetera [place] Organization [place] Address [address] [place] [address] Care Team Providers Care Subscription Agent Name Role Phone LAZARO SALDIVAR Primary Care Provider Unavailabl e Selected Encounter This section includes the information on record at [place] for the Encounter. Date/Time Encounter Type Encounter Description Reason Provider Source Mar 11, 2024 02:01 PM Outpatient Encounter ADMIN PAT ACTIVTIES (MASNONCT) CHARLOTTE SAINI Iesha Encounter Template Text not used by [place] Plan of Treatment: Future Appointments (+ 6 months) and Future Tests (+/- 45 days) The Plan of Treatment section includes future care activities for the patient from all [place] treatmentfacilities. This section includes future appointments and [...] 2024 12:30 PM [facility]ULATORY - MEDICINE [facility] Apr 15, 2024 09:00 AM [facility]UL[facility]ORY - MEDICINE [facility] Apr 25, 2024 10:40 AM AMBULATORY - NONE [facility] May 01, 2024 08:00 AM AMBULATORY - NONE [facility] May 01, 2024 02:00 PM AMBULATORY - MEDICINE [facility] May 12, 2024 11:30 AM [facility]ULAT[facility] NONE [facility] May 29, 2024 11:00 AM AMBULATORY - NONE [facility] Ar[facility] Jun 02, 2024 11:30 AM AM[facility]ULATORY - NONE [facility] Jun 25, 2024 11:00 AM AMBULATORY - MEDICINE [facility] Julian [facility] Aug 04, 2024 12:15 PM AMBULATORY - MEDICINE [facility] Encounter Notes: All associated encounter notes This section contains the clinical notes associated to the Encounter. Date/Time Encounter Note(s) Provider Source Mar 11, 2024 02:06 PM PHYSICIAN LETTERS: LOCAL TITLE: NO CONTACT LETTER STL STANDARD TITLE: PHYSICIAN LETTERS DATE OF NOTE: MAR 11, 2024@14:06 ENTRY DATE: MAR 11, 2024@14:06:58 AUTHOR: CHARLOTTE SAINI EXP COSIGNER: URGENCY: STATUS: COMPLETED [facility] [address] [place] [address] MAR 11, 2024 HEATHER LEIGH [address], [place] [address] Dear Heather Leigh, Thank you for choosing the [facility] as your primary choice for health care. As a partner in your health care, we are attempting to contact you because we have been unsuccessful in reaching you by phone to schedule your clinic appointment. Please call us at [phone], extension [phone] to speak to us regarding making an appointment in the [facility]. Health Registry clinic. Your good health is [...] inquire about scheduling. Sincerely, CHARLOTTE SAINI ADVANCED PROOF INSPECTOR HEATHER LEIGH [facility] Mar 11, 2024 02:01 PM ADMINISTRATIVE NOT E: LOCAL TITLE: ADMINISTRATIVE STL STANDARD TITLE: ADMINISTRATIVE NOTE DATE OF NOTE: MAR 11, 2024@14:01 ENTRY DATE: MAR 11, 2024@14:01:28 AUTHOR: CHARLOTTE SAINI EXP COSIGNER: URGENCY: STATUS: COMPLETED 03/11/24 Made attempt to contact no answer/left message. Sent/emailed [place] letter /jarrett/ CHARLOTTE SAINI ADVANCED PROOF INSPECTOR Signed: 03/11/2024 14:02 CHARLOTTE SAINI [facility]
--- OUTSIDE RECORDS SUMMARY | 2024-10-20 13:50 | XMS_ITS | Encounter Summary ---
Author Name Department of [place] Organization Department [place] Address [address] [place] [address] Care Team Providers Care Program/Music Director Name Role Phone LAZARO SALDIVAR Primary Care Provider Unavailabl e Selected Encounter This section includes the information on record at [place] for the Encounter. Date/Time Encounter Type Encounter Description Reason Pro vider Source Mar 19, 2024 10:14 AM Outpatient Encounter ADMIN PAT ACTIVTIES (NEGINNONCT) IHE Encounter Template Text not used by [place] Plan of Treatment: Future Appointments (+ 6 months) and Future Tests (+/- 45 days) The Plan of Treatment section includes future care activities for the patient from all [place] treatmentfacilities. This section includes future appointments and future orders which are active, pending or scheduled. Future Appointments This section includes appointments that were scheduled to occur 6 months from the date of the Encounter, up to a maximum of 20 appointments. The data comes from all [place] treatment facilities. Appointment Date/Time Appointment Type Appointme nt Facility Name Apr 14, 2024 12:30 PM AM[facility]ULATORY - MEDICINE [facility] Apr 15, 2024 09:00 AM AMBULATORY - MEDICINE [facility] Apr 25, 2024 10:40 AM AMBULATORY - NONE [facility] May 01, 2024 08:00 AM AMBULATORY - NONE [facility] May 01, 2024 02:00 PM AMBULATORY - MEDICINE [facility] May 12, 2024 11:30 AM AMBULATORY - NONE [facility] May 29, 2024 11:00 AM AMBULATORY - NONE Vida Arndt [facility] Jun 02, 2024 11:30 AM AMBULATORY - NONE [facility] Jun 25, 2024 11:00 AM AMBULATORY - MEDICINE [facility] Aug 04, 2024 12:15 PM AMBULATORY - MEDICINE [facility] Lab Results: +/- 30 days of the encounter This section includes the Chemistry and Hematology Lab Results on record with [place] for the patient. Radiology Reports and Pathology Reports are provided separately, in subsequent sections. Lab Results This section contains the Chemistry/Hematology Results that were resulted 30 days before or 30 daysafter the date of the Encounter. Date/Time Source Result Type Result - Unit Interpretation Reference Range Specimen Type Comment Apr 15, 2024 09:05 AM [facility] COMPREHENSIVE METABOLIC PANEL PLASMA Specimen Type: PLASMA Comment: No hemolysis noted. Ordering Provider: LAZARO SALDIVAR Report Released Date/Time: Apr 14, 2024 01:03 PM Reporting Lab: [address] [address] Performing Lab: [address] [address] CREATININE 0.53 mg/dL L 0.6-1.1 UREA NITROGEN [...] 115.4 >60 Apr 15, 2024 09:05 AM [facility] LIPID PANEL (STL) PLASMA Specimen Type: PLASM A Comment: No hemolysis noted. Ordering Provider: LAZARO SALDIVAR Report Released Date/Time: Apr 14, 2024 01:03 PM Reporting Lab: [facility] [address] [place] [phone] Performing Lab: [facility] [address] [place] [phone] CHOLESTEROL 218 mg/dL H 0-200 TRIGLYCERIDE 98 mg/dL 0-150 CALCULATED LDL 129 mg/dL HDL(New) 69 mg/dL >40 Apr 15, 2024 09:05 AM [facility] CBC BL OOD Specimen Type: BLOOD No comment entered. Ordering Provider: LAZARO SALDIVAR Report Released Date/Time: Apr 14, 2024 01:03 PM Reporting Lab: [facility] [address] [place] [phone] Performing Lab: [facility] [address] [place] [phone] WBC 3.4 10*3/uL L 3.6-11.2 RBC 3.98 [...] AUTO % 2 LYMPHOCYTES, ABSOLUTE 1.26 10*3/uL 0.77- 4.50 MONOCYTES, ABSOLUTE 0.49 10*3/uL 0.19-0. 80 NEUTROPHILS, ABSOLUTE 1.49 10*3/uL L 2.10- 8.00 EOSINOPHILS, ABSOLUTE 0.12 10*3/uL 0.00- 0.60 BASOPHILS, ABSOLUTE 0.05 10*3/uL 0.00-0. 20 Apr 15, 2024 09:05 AM [facility] HGA1C BL OOD Specimen Type: BLOOD No comment entered. Ordering Provider: LAZARO SALDIVAR Report Released Date/Time: Apr 14, 2024 01:03 PM Reporting Lab: [facility] [address] [facility] [address] Performing Lab: [facility] [address] [place] [phone] HGA1C 4.9 4.0-6.0 Apr 15, 2024 09:05 AM [facility] TSH W/ REFLEX FT4 (STL) PLASMA Specimen Type: PLASMA No comment entered. Ordering Provider: LAZARO SALDIVAR Report Released Date/Time: Apr 14, 2024 01:03 PM Reporting Lab: [facility] [address] [place] [phone] Performing Lab: [address] [phone] TSH 1.623 u[IU]/mL 0.47-5 Apr 15, 2024 09:05 AM [facility] VITAMIN D, 25-HYDROXY SERUM Specimen Type: SE RUM No comment entered. Ordering Provider: LAZARO SALDIVAR Report Released Date/Time: Apr 14, 2024 01:03 PM Reporting Lab: [facility] [address] [place] [phone] Performing Lab: [facility] [address] [place] [phone] VITAMIN D, 25-HYDROXY 65.1 ng/mL 30-96 Apr 15, 2024 09:05 AM [facility] URINALYSIS (STL-PB) URINE Specimen Type: URIN E No comment entered. Ordering Provider: LAZARO SALDIVAR Report Released Date/Time: Apr 14, 2024 01:06 PM Reporting Lab: [facility] [address] [place] [phone] Performing Lab: [facility] [address] [place] [phone] URINE COLOR Light-Yellow Yellow U.BILIRUBIN Negative mg/dL Negative U.PH 7.0 5.0-8.0 APPEARANCE Clear Clear U.NITRITE Negative mg/dL Negative URN.GLUCOSE Normal mg/dL Negative URN.PROTEIN Negative mg/dL URN.UROBILINOGEN Normal mg/dL Normal URN.BLOOD Negative mg/dL Negative-Trace URN.KETONES Negative mg/dL Negative-Trac e URN.LEUK.EST. Negative mg/dL Negative-Tr marika URN.SPECIFIC GRAVITY 1.018 Radiology Reports: +/- 30 [...] the Encounter. The data comes from all [place] treatment facilities. Date/Time Radiology Report Provider Source Apr 15, 2024 08:32 AM SPINE LUMBOSACRAL 2 OR 3 VIEWS: GEE LEIGH [id number] -1975 F Exm Date: APR 15, 2024@08:32 Req Phys: LAZARO SALDIVAR Pat Loc: -[facility] VVC PACT W PCP (Req'g L Img Loc: -MAIN RADIOLOGY SUITE Service: Unknown Screen: Patient answered no [facility] [address] [place] [address] (Case [id number] COMPLETE) SPINE LUMBOSACRAL 2 OR 3 VIEWS (RAD Detailed) CPT:95899 Reason for Study: low back pain with right sciatica Clinical History: Report Status: Verified Date Reported: APR 15, 2024 Date Verified: APR 15, 2024 District Fire Management Officer E-Sig:/ES/Robert Castellon MD Report: SPINE LUMBOSACRAL 2 OR 3 VIEWS CASE #: [id number] DATE:04/15/2024 9:27 AM CLINICAL HISTORY:low back pain with right sciatica COMPARISON: None currently available. TECHNIQUE: SPINE LUMBOSACRAL 2 OR 3 VIEWS Impression: FINDINGS/IMPRESSION: Facet arthropathy with disc height at L5-S1. Limbus type vertebral body at L5. No acute fracture. 5 nonrib-bearing lumbar vertebral bodies. Very slight levoconvex curvature. SI joints are neither ankylosed nor diastatic. Primary Interpreting Staff: Robert Castellon MD, Radiologist ([place]) /ROBERT SQUIRES [facility] Encounter Notes: All associated encounter notes [...] Made 2nd attempt to contact no answer /es/ CHARLOTTE SAINI ADVANCED ESTIMATE CLERK Signed: 03/19/2024 10:14 CHARLOTTE SAINI [facility]
--- OUTSIDE RECORDS SUMMARY | 2024-10-20 13:50 | XMS_ITS | Encounter Summary ---
Author Name Department of [place]a Affairs [place] Organization [place] Address [address] [place] [address] Care Team Providers Care Instructor Business Education Name Role Phone JANNA LAZARO Primary Care Provider Unavailabl e Selected Encounter This section includes the information on record at [place] for the Encounter. Date/Time Encounter Type Encounter Description Reason Provider Source Jun 25, 2024 11:00 AM OFFICE O/P EST LOW 20 MIN COMP WMS HLTH GNDR DIVERSE PC ICD-10-CM M25.531 Pain in right wrist LAZARO SALDIVAR IHIesha Encounter Template Text not used by [place] Assessments - Encounter Diagnoses This section includes the primary and secondary diagnoses documented for the Encounter. Date/Time Primary/Secondary Diagnosis Diagnosis Name Provider Source Jun 25, 2024 01:16 PM PRIMARY Pain in right wrist LAZARO SALDIVAR [facility] Jun 25, 2024 01:16 PM SECONDARY Low back pain, unspecified LAZARO SALDIVAR [facility] Jun 25, 2024 01:16 PM SECONDARY Pain in unspecified knee LAZARO SALDIVAR [facility] Plan of Treatment: Future Appointments [...] 20 appointments. The data comes from all [facility]. Appointment Date/Time Appointment Type Appointme nt Facility Name Aug 04, 2024 12:15 PM AMBULATORY - MEDICINE [facility] Oct 31, 2024 09:30 AM AMBULATORY - MEDICINE [facility] Vital Signs: All taken on the encounter date This section contains inpatient and outpatient Vital Signs collected on the date of the Encounter. Date/Time Temperature Pulse Blood Pressure Respiratory Rate SP02 Pain Height Weight Body Mass Index Source Jun 25, 2024 11:32 AM 98.1 73 107/73 20 [address] [facility] Social History: Smoking Status (Most current) and Tobacco Use (All prior to encounter date) This section includes the most current, and the historical, smoking and tobacco- related health factors from the [facility] where the Encounter took place. Current Smoking Status This section includes the most current smoking, or tobacco-related health factor, from the [facility] where the Encounter took place. Date/Time Current Smoking Status Comment Alfreda nieto May 01, 2024 02:00 PM PR-TOBACCO NEVER USED CIGARETTES [facility] Tobacco Use History This section includes a history of the smoking, or tobacco-related health factors, that were collected on or before the date of the Encounter. The data comes from the [place] facility where the Encounter took place. Date/Time Smoking Status/Tobacco Use Comment F acyamileth May 01, 2024 02:00 PM PR-TOBACCO NEVER USED OTHER TYPE [facility] Dec 20, 2020 01:00 PM PR-TOBACCO NEVER USED [facility] Radiology Reports: +/- 30 days of the [...] the Encounter. The data comes from all [facility]. Date/Time Radiology Report Provider Source Jun 25, 2024 11:35 AM KNEE,RIGHT 3 VIEWS : HEATHER LEIGH [id number] -1975 F Exm Date: JUN 25, 2024@11:35 Req Phys: LAZARO SALDIVAR Pat Loc: -[facility] PACT W PCP (Req'g Lo Img Loc: [facility] RAD[facility] SUITE Service: Unknown Screen: Patient answered no [facility] [address] [place] [address] (Case [id number] COMPLETE) KNEE,RIGHT 3 VIEWS (RAD Detailed) CPT:49206 Proc Modifiers : RIGHT, LATERAL, Stand AP, [place] Reason for Study: right knee pain Clinical History: Report Status: Verified Date Reported: JUN 25, 2024 Date Verified: JUN 25, 2024 Teacher Assistant E-Sig:/ABDELRAHMAN/KIKE GARCIA MD Report: Case #[id number]. Right knee [...] KIKE GARCIA MD, Staff Physician - Radiologist (Teacher Assistant) /KIKE WRIGHT [facility] Jun 25, 2024 11:35 AM KNEE,LEFT, 3 VIEWS : HEATHER LEIGH [id number] -1975 F Exm Date: JUN 25, 2024@11:35 Req Phys: LAZARO SALDIVAR Pat Loc: [facility] PACT W PCP (Req'g Lo Img Loc: [facility] RAD[facility]Y SUITE Service: Unknown Screen: Patient answered no [facility] [address] [place] [address] (Case [id number] COMPLETE) KNEE,LEFT, 3 VIEWS (RAD Detailed) CPT:62969 Proc Modifiers : LEFT, LATERAL, Stand AP, [place] Reason for Study: left knee pain Clinical History: Report Status: Verified Date Reported: JUN 25, 2024 Date Verified: JUN 25, 2024 Teacher Assistant E-Sig:/ABDELRAHMAN/KIKE GARCIA MD Report: Case #[id number]. Left knee [...] KIKE GARCIA MD, Staff Physician - Radiologist (Teacher Assistant) /KIKE WRIGHT [facility] Encounter Notes: All associated encounter notes This section contains the clinical notes associated to the Encounter. Date/Time Encounter Note(s) Provider Source Jun 26, 2024 01:08 PM PHYSICIAN LETTERS: LOCAL TITLE: TEST RESULT GENERAL LETTER STL STANDARD TITLE: PHYSICIAN LETTERS DATE OF NOTE: JUN 26, 2024@13:08 ENTRY DATE: JUN 26, 2024@13:08:46 AUTHOR: LAZARO SALDIVAR EXP COSIGNER: URGENCY: STATUS: COMPLETED [facility] [address] [place] [address] JUN 26, 2024 HEATHER LEIGH [address], [place] [address] Dear Heather Leigh, I would like to [...] 09:30 [facility] PACT WH W PCP Sincerely, LAZRAO SALDIVAR Staff Physician HEATHER LEIGH LEAH C [facility] Jun 25, 2024 01:09 PM PRIMARY CARE NOTE: LOCAL TITLE: PRIMARY CARE PROVIDER ESTABLISHED VISIT STL STANDARD TITLE: PRIMARY CARE NOTE DATE OF NOTE: JUN 25, 2024@13:09 ENTRY DATE: JUN 25, 2024@13:09:22 AUTHOR: LAZARO SALDIVAR EXP COSIGNER: URGENCY: STATUS: COMPLETED REASON FOR VISIT/CHIEF COMPLAINT: Routine HPI: Huntley presents today for routine visit. She complains [...] Snoring 2) Exposure to potentially hazardous substance ([facility] [id number]) comment: Entered automatically through ALLAN Problem List documentation prog ALLERGIES: Patient has answered NKA ALLERGY REVIEW: Allergy list reviewed and remains current. MEDICATIONS: Active and Recently Outpatient Medications (excluding Supplies): Active Outpatient Medications Status = 1) BISACODYL 5MG EC TAB TAKE TWO TABLETS BY MOUTH ONE TIME TAKE ACTIVE BISACODYL TABLETS AT 4PM ON AFTERNOON PRIOR TO TEST. CALL [phone] WITH ANY QUESTIONS ABOUT THESE INSTRUCTIONS. MAIL [...] medication list with the patient and/or his/her care-care giver. Handwritten corrections, additions and/or deletions were made to the list. Corrected Outpatient Medication List was provided to the patient/caregiver. LMP: PAP:05/03 G P Contraceptive management: Sexual Activity: yes STD's:denies concerns mammography:05/03 HRT: family history of breast or NEWS AGENT cancer: non-contributory hysterectomy: REVIEW OF SYSTEMS: General: [...] swelling/stiffness/pain, +back pain, neck pain and edema /NEWS AGENT: Denies dysuria, flank pain, frequency, hesitancy, urgency, [...] Immunization Series Date Facility Reaction Info COVID-19 (CoverItLive), MRNA, LNP-S, * 1 2020 [facility] * INFLUENZA, SPLIT VIRUS, TRIVALEN* C 04/15/2024 [facility]* CONTRAINDICATED No data available REFUSED ======= Immunization Date Facility Info COVID-19 (PFIZER), MRNA, LNP-S, * 06/25/2024 [facility]* <I> COVID-19 (PFIZER), MRNA, LNP-S, * 05/01/2024 [facility]* <I> [...] to keep all scheduled appointments and contact basket hand weaver for any additional problems. /abdelrahman/ LAZARO SALDIVAR Staff Physician Signed: 06/25/2024 13:[address] [facility] Jun 25, 2024 11:10 AM NURSING NOTE: LOCAL TITLE: V15 PACT FACE TO FACE NOTE STL STANDARD TITLE: NURSING NOTE DATE OF NOTE: JUN 25, 2024@11:10 ENTRY DATE: JUN 25, 2024@11:38:15 AUTHOR: MONTANA HANEY EXP COSIGNER: URGENCY: STATUS: COMPLETED Provider Visit: Patient [...] mental or emotional illness? No My [facility] ([facility]), please select appointment type: Face to face: Yes- Done Contact provided Primary Care phone number and encouraged to call if any questions or concerns. Review that after hours nurse line [phone] and emergency room are available 30/10 for patient use. Contact verbalized good understanding. COVID-19 Immunization - L,N,P,PH,U: Refused Pfizer Monovalent COVID-19 vaccine Immunization: COVID-19 (PFIZER), MRNA, LNP-S, PF, MARVIN-SUCROSE, 30 MCG/0.3 ML (AGES 12+ YEARS) Refusal Reason: PATIENT DECISION Patient refuses all immunization(s) in the COVID-19 group Date Documented: 06/25/24 11:39 [facility] MAP: PERSONAL HEALTH PLAN INVENTORY & MAP Huntley's Response: PAIN RELIEF /es/ MONTANA HANEY LPN LICENSED PRACTICAL NURSE Signed: 06/25/2024 11:[address] [facility]
--- OUTSIDE RECORDS SUMMARY | 2024-10-20 13:51 | XMS_ITS | Encounter Summary ---
Author Name [facility] [place] [place] Organization [place] Address [address] [place] [address] Care Team Providers Care Auto Air Conditioning Apprentice Name Role Phone LAAZRO SALDIVAR Primary Care Provider Unavailabl e Selected Encounter This section includes the information on record at [place] for the Encounter. Date/Time Encounter Type Encounter Description Reason Provider Source Aug 04, 2024 01:03 PM OFFICE O/P EST LOW 20 MIN NON-OR ANESTHESIA PROCEDURES ICD-10-CM Z01.818 Encounter for other preprocedural examination MEIR LAM Encounter Template Text not used by [place] Assessments - Encounter Diagnoses This section includes the primary and secondary diagnoses documented for the Encounter. Date/Time Primary/Secondary Diagnosis Diagnosis Name Provider Source Aug 04, 2024 01:08 PM PRIMARY Encounter for other preprocedural examination SYLVIA LAM [facility] Aug 04, 2024 01:08 PM SECONDARY Encounter for other specified aftercare SYLVIA LAM [facility] Plan of Treatment: Future Appointments (+ 6 months) and Future Tests (+/- 45 days) The Plan of Treatment section includes future care activities for the patient from all [place] treatmentfacilities. This section includes future appointments and future orders which are active, pending or scheduled. Future Appointments This section includes appointments that were scheduled to occur 6 months from the date of the Encounter, up to a maximum of 20 appointments. The data comes from all [facility]. Appointment Date/Time Appointment Type Appointme nt Facility Name Oct 31, 2024 09:30 AM AMBULATORY - MEDICINE [facility] Encounter Notes: All associated encounter notes This section contains the clinical notes associated to the Encounter. Date/Time Encounter Note(s) Provider Source Aug 04, 2024 02:33 PM ANESTHESIOLOGY POS T OPERATIVE E & M NOTE: LOCAL TITLE: ANESTHESIA POST-OP STL STANDARD TITLE: ANESTHESIOLOGY POST OPERATIVE E & M NOTE DATE OF NOTE: AUG 04, 2024@14:33 ENTRY DATE: AUG 04, 2024@14:33:22 AUTHOR: MITCHELL LAM EXP COSIGNER: URGENCY: STATUS: COMPLETED Post-Anesthesia Note No complications noted from anesthetic at time of this note. Anesthesia Intra-Op Flowsheet Uploaded to [facility] /es/ MITCHELL LAM MD SICU title 1 tutor/Anesthesiologist /Palliative Care Signed: 08/04/2024 14:33 MITCHELL LAM [facility] Aug 04, 2024 01:03 PM ANESTHESIOLOGY PRE OPERATIVE E & M NOTE: LOCAL TITLE: ANESTHESIA PRE-OP STL STANDARD TITLE: ANESTHESIOLOGY PRE OPERATIVE E & M NOTE DATE OF NOTE: AUG 04, 2024@13:03 ENTRY DATE: AUG 04, 2024@13:03:09 AUTHOR: MITCHELL LAM EXP COSIGNER: URGENCY: STATUS: COMPLETED Pre-Operative Diagnosis: Screening Operation proposed: Colonoscopy Vitals: Age: 49 Weight: 143 lb [64.86 kg] (06/25/2024 11:32) Height: 65 in [165.1 cm] (06/25/2024 11:32) Blood Pressure: 107/73 (06/25/2024 11:32) Pulse: 73 (06/25/2024 11:32) Temp: 98.1 F [36.7 C] (06/25/2024 11:32) Resp: 20 (06/25/2024 11:32) SpO2: 96% (06/25/2024 11:32) BMI: 23.8 Allergies: Patient has answered NKA Medications: ACTIVE INPT MEDS: No medications found. Active Outpatient Medications (including Supplies): Active Outpatient Medications Status 1) MELOXICAM 15MG TAB TAKE ONE TABLET BY MOUTH ONCE A DAY ACTIVE Indication: FOR OSTEOARTHRITIS Most Recent Labs/CXR/EKG Results HGB 14.1 g/dL 04/15/2024 09:05 HCT 40.2 % (04/15/24 09:05) PLT 210 10*3/uL 04/15/2024 09:05 WBC 3.4 10*3/uL L (04/15/24 09:05) PT ____ No PTT EO data found No INR EO data found SODIUM 138 mEq/L 04/15/2024 09:05 POTASSIUM 4.2 mEq/L 04/15/2024 09:05 CHLORIDE 103 mEq/L 04/15/2024 09:05 UREA NITROGEN 15.5 mg/dL 04/15/2024 09:05 CREATININE 0.53 L mg/dL 04/15/2024 09:05 CALCIUM 9.9 mg/dL 04/15/2024 09:05 CARBON DIOXIDE 25 mEq/L 04/15/2024 09:05 GLUCOSE 82 mg/dL 04/15/2024 09:05 EGFR (CKD-EPI 2020) 115.4 04/15/2024 09:05 ALBUMIN 4.5 g/dL 04/15/2024 09:05 HGA1C 4.9 % 04/15/2024 09:05 ALKALINE PHOSPHATASE 78 U/L 04/15/2024 09:05 SGPT/ALT 42 U/L H (04/15/24 09:05) SGOT/AST 58 U/L H (04/15/24 09:05) TOTAL BILIRUBIN 0.9 mg/dL 04/15/2024 09:05 No GLUCOSE,BLOOD-poct (STL) data found URINE COLOR Light-Yellow 04/15/2024 09:05 APPEARANCE Clear 04/15/2024 09:05 U.PH 7.0 04/15/2024 09:05 U.BILIRUBIN Negative mg/dL 04/15/2024 09:05 U.NITRITE Negative mg/dL 04/15/2024 09:05 UDS: No URINE DRUG SCREEN EO data found TEST: No TEST LAST ONE EO data found No HIV SCREENING EO data found [facility] Hep C tests in last five years. *No Lab Data Found* CXR: No Impressions found EKG: Problem List: 1) Snoring 2) Exposure to potentially hazardous substance ([facility] [id number]) REVIEW OF SYSTEMS: RESPIRATORY for: - SOB - Sleep apnea - Asthma - COPD CARDIAC for: - Chest Pain - Hypertension - Hyperlipidemia - Myocardial infarction - Coronary artery disease - Heart failure - Valvular disease - VTE - Atrial fibrillation/flutter + Exercise tolerance: > 4METS PSYCH/CENTRAL NERVOUS for: - Depression - Anxiety - Post-traumatic stress disorder - Cerebral vascular accident - Seizures ENDOCRINE for: - Diabetes TYPE II, HGA1C 4.9 % 04/15/2024 09:05 BS: - Hypothyroid RENAL for: - Chronic kidney disease CREATININE 0.53 L mg/dL 04/15/2024 09:05 - Nephrolithiasis GI for: - GERD - Controlled - yes, Current symptoms - No - Hiatal Hernia - Pancreatitis - Liver disease - GI bleed VASCULAR/HEMATOLOGY/ONCOLOGY for: - Anemia HGB 14.1 g/dL 04/15/2024 09:05 - Thrombocytopenia - Bleeding disorders MUSCULOSKELETAL/SKIN/PERIPHE RAL NERVOUS for: - Obesity 23.8 + Arthritis/Degenerative joint disease -LBP - Rheumatoid arthritis - Neuropathy /REPRODUCTIVE for: + Childbearing age (15 - 55 YRS), IUD -Mirena - Ede 25 PCP note HABITS: ETOH use:Current - Social Smoking History: Non-smoker Illicit Drugs: Denies PSH:Reviewed No previous Anesthesia complications Physical Exam: Auscultation Finding: Heart Sounds: Regular Rate, Regular Rhythm Breath Sounds: Clear AIRWAY: MP CLASS:I SUBMANDIBULAR SPACE:3 fingerbreaths RANGE OF MOTION: FULL TEETH: Okay ASA: 2. A patient with mild systemic disease. ANESTHETIC PLAN: Monitored Anesthesia Care (MAC) Premedications: Planned anesthetic technique and options were discussed with the patient or guardian. ==== Pre-Induction Reassessment: NPO Greater than 8 hours: Yes Beta roxana medication: No Medications given/taken today: None /jarrett/ MITCHELL LAM MD SICU title 1 tutor/Anesthesiologist /Palliative Care Signed: 08/04/2024 13:08 Receipt Acknowledged By: 08/04/2024 13:11 /jarrett/ [facility]
--- OUTSIDE RECORDS SUMMARY | 2024-10-20 13:51 | XMS_ITS ---
Author Name [facility] [place] [facility] [place] Organization [facility] [place] Address [address] [place] [address] Care Team Providers Care Stencil Machine Operator Name Role Phone LAZARO SALDIVAR Primary Care Provider Unavailabl e Selected Encounter This section includes the information on record at [place] for the Encounter. Date/Time Encounter Type Encounter Description Reason Pro vider Source Mar 11, 2024 12:42 PM Outpatient Encounter ADMIN PAT ACTIVTIES (NEGINNONCT) IHE Encounter Template Text not used by [place] Plan of Treatment: Future Appointments (+ 6 months) and Future Tests (+/- 45 days) The Plan of Treatment section includes future care activities for the patient from all [place] treatmentfacilities. This section includes future appointments and future orders which are active, pending or scheduled. Future Appointments This section includes appointments that were scheduled to occur 6 months from the date of the Encounter, up to a maximum of 20 appointments. The data comes from all [place] treatment facilities. Appointment Date/Time Appointment Type Appointme nt Facility Name Apr 14, 2024 12:30 PM AMBULATORY - MEDICINE [facility] Apr 15, 2024 09:00 AM AMBULATORY - MEDICINE [facility] Apr 25, 2024 10:40 AM AMBULATORY - NONE [facility] May 01, 2024 08:00 AM AMBULATORY - NONE [facility] May 01, 2024 02:00 PM AMBULATORY - MEDICINE [facility] May 12, 2024 11:30 AM [facility]ULAT[facility] - NONE [facility] May 29, 2024 11:00 AM AMBULATORY - NONE [facility] Arndt [facility] Jun 02, 2024 11:30 AM AMBULATORY - NONE [facility] HICKEY [facility] Jun 25, 2024 11:00 AM AMBULATORY - MEDICINE [facility] GARZA [facility] Aug 04, 2024 12:15 PM AMBULATORY - MEDICINE [facility] Encounter Notes: All [...] URGENCY: STATUS: COMPLETED GEE LEIGH [address] [id number] Dear [email or web address] Thank you for choosing the [facility] as your primary choice for health care. We are attempting to contact you to schedule the: Airborne Hazard and Open Burn Pit Registry Exam Please call us at [phone] to speak to us regarding making an appointment In the [facility]. If you received this letter after you have spoken to us, please disregard this letter. Sincerely, [facility] /jarrett/ BETZAIDA AMES [facility] Signed: 03/11/2024 12:43 BETZAIDA AMES [facility]
[2024-10-20 14:04] LABS: EDUAAPPEAR Cloudy; EDUABILI Negative (Negative); EDUABLOOD Trace (Negative); EDUACOLOR1 Yellow; EDUAGLUCOSE Negative (Negative); EDUAKETONE Negative (Negative); EDUALEUKO 2+ (Negative); EDUANITRATE Negative (Negative); EDUAPH 7.5; EDUAPROTEIN 2+ (Negative); EDUASPGRAVITY 1.020; EDUAUROBILI 1.0
== END 2024-10-20 14:03 | disposition home or self-care (01) ==
PROVIDERS: Emergency Provider Nurse Practitioner; PCP Nurse Practitioner
DX: N30.01 Acute cystitis with hematuria (principal)
CPT/HCPCS: 81003; 87086; 99213; G0463

== ENCOUNTER 2025-01-11 14:13 | Emergency (ER) | payer OTHER, SELFPAY ==
--- OUTSIDE RECORDS SUMMARY | 2023-09-22 16:30 | XMS_ITS ---
Author Organization [facility] ([address]) Address [address] [place] [address] Care Team Providers Care Quality Assurance Representative Name Role Phone Candace Francosi Primary Care Provider Unavailab le Jaiden Villalobos Unavailable [phone] ZZ-Migration, Provider Unavailable Unavailab le [facility]ISIT [facility] Conversion Encounter Medications Medication SIG (Take, Route, Frequency, Duration) Notes Start Date End Date Status EpiPen 2-Isaias 0.3 MG/0.3ML as directed intramuscularly once; Duration: 30 days Active Olopatadine HCl 0.1 % 1 gtt in each affected eye 2 times a day; Duration: 30 day(s) 12/22/2021 Not-Taking predniSONE 10 MG 3 tab(s) orally once a day; Duration: 5 day(s) 05/09/2022 Active Cetirizine HCl 10 MG 1 tab(s) orally once a day; Duration: 30 days Active Fluticasone Propionate 50 MCG/ACT 2 spray(s) in each nostril BID; Duration: 30 day(s) Active NASAL WASHES N/A DIRECTED INTRANASALLY NEEDED; Duration: 30 *Please review for potential replacement for e-prescription and drug interaction check* Active Encounters Encounter Location Date Provider Diagnosis FELIPA Phillips[facility] [place] [address] 09/22/2023 Provider ZZ-Migration Plan Of Treatment No Information Progress Notes * Chuck LEIGH:1975 (49 yo F)Acc No.[id number]:09/22/2023 Patient: Jeannine FRASER Provider: Thomas Hunt :1975 A ge:48 Y S ex:Female Date:09/22/2023 Address:[address] [place] [address] Shivam [place], [id number] Pcp:Candace Francois Subjective: * Chief Complaints: * [address] [facility] [address] [facility] Conversion Encounter. * Medical History: * Medications: T aking predniSONE 10 MG Tablet 3 tab(s) orally once a day , Taking Cetirizine HCl 10 MG Tablet 1 tab(s) orally once a day , Taking Fluticasone Propionate 50 MCG/ACT Suspension 2 spray(s) in each nostril BID , Taking EpiPen 2-Isaias 0.3 MG/0.3ML Solution Auto-injector as directed intramuscularly once , Taking NASAL WASHES N/A 1 QUART OF STERILIZED TAP WATER OR DISTILLED WATER, 1 TSP NACL, 1 PINCH OF BAKING SODA DIRECTED INTRANASALLY NEEDED , Notes to Pharmacist: *Please review for potential replacement for e-prescription and drug interaction check*, Not-Taking/PRN Olopatadine HCl 0.1 % Solution 1 gtt in each affected eye 2 times a day Objective: * Vitals: Assessment: Plan: * Treatment: * Billing Information: * Visit Code: * Procedure Codes: * Electronic signature of Prov kirstier SerenaZ-Migration on 01/11/2025 at 02:16 PM CDT Sign off status: Pending * Provider: Thomas Hunt Date: 0 09/22/2023 Generated for Josesito dove/Mirtha/Jc on: 1 02:16 PM CDT
--- OUTSIDE RECORDS SUMMARY | 2025-01-11 14:16 | XMS_ITS | Patient Health Record ---
Author Organization [facility] Address [address] [place], [place] [address] Support Name Relationship Address Phone Marty Gonzalez Emergency Contact [address] [place], [place] [address] Heather Gonzalez Guarantor Unknown [phone] Reason For Referral No Information Medications Medication [...] Date Coverage End Date [employer] [address] KENZIE Palacio [phone] [id number] Heather Gonzalez Self - patient is the insured Medical (General) History Surgical History Surgery Date(Month/Year)
--- OUTSIDE RECORDS SUMMARY | 2025-01-11 14:16 | XMS_ITS | Patient Health Record ---
Author Organization [facility] [place] ([address]) Address [address] [place] [address] Care Team Providers Care Ict Development Manager Name Role Phone Candace Francois Primary Care Provider Jaiden Worley Unavailable [phone] Allergies No Known Allergies Reason For Referral [...] Status Risk Notes Problem Chronic allergic conjunctivitis (12499789) Other chronic allergic conjunctivitis (H10.45) Active confirmed Problem Allergic rhinitis caused by pollen (disorder) (86389948) Allergic rhinitis due to pollen (J30.1) Active confirmed Problem Allergic rhinitis caused by animal hair and dander (632065090787856) Allergic rhinitis due to animal (cat) (dog) hair and dander (J30.81) Active confirmed Problem Allergic rhinitis (00084085) Other allergic rhinitis (J30.89) Active confirmed Problem Allergic rhinitis caused by pollen (disorder) (77026035) Allergic rhinitis due to pollen (J30.1) Active confirmed Problem Allergic rhinitis caused by animal hair and dander (663225799334147) Allergic rhinitis due to animal (cat) (dog) hair and dander (J30.81) Active confirmed Problem Allergic rhinitis (59116713) Other allergic rhinitis (J30.89) Active confirmed Problem Chronic allergic conjunctivitis (02716459) Other chronic allergic conjunctivitis (H10.45) Active confirmed Problem Eruption of skin (429711568) Rash and other nonspecific skin eruption (R21) Active confirmed Plan Of Treatment No Information Insurance Providers Payer Name Payer Address Payer Phone Subscriber Number Group Number Insured Name Patient Relationship to Insured Coverage Start Date Coverage End Date [facility] [address] [place] [phone] [id number] Ismael Gonzalez Spouse - patient is the [...]
--- OUTSIDE RECORDS SUMMARY | 2025-01-11 14:16 | XMS_ITS | Clinical Summary ---
Author Organization [facility] Address [address] [place] [address] Phone Care Team Providers Care Systems Operator Name Role Phone Unavailable Primary Care Provider [...] on file Legal Sex Female 2:50 AM SMASHER Gender Identity Not on file Sexual Orientation Not on file Last Filed Vital Signs Vital Sign Reading Time Taken Comments Blood Pressure 125/86 06/01/2023 4:05 PM SMASHER Pulse 84 06/01/2023 4:05 PM SMASHER Temperature 36.5 C (97.7 F) 06/01/2023 3:50 PM SMASHER Respiratory Rate 16 06/01/2023 4:05 PM SMASHER Oxygen Saturation 100% 06/01/2023 4:05 PM SMASHER Inhaled Oxygen Concentration - - Weight 65.3 kg (144 lb) 05/29/2023 8:47 AM SMASHER Height 167.6 cm (5' 6) 05/29/2023 8:47 AM SMASHER Body Mass Index 23.24 05/29/2023 8:47 AM SMASHER Plan of Treatment Health Maintenance Due Date [...] Q 5 years 2022 INFLUENZA VACCINE (#1) 2024 , 02/26/2020, 04/04/2019, Additional history exists COVID-19 Vaccine (2024-2 6 season) 2024 04/13/2021, 07/29/2020, 07/11/2020, Additional history exists Medical Devices Implanted Type Area Cigarette Package Examiner Device Identifier Shelf Expiration Date Model / Serial / Lot Breast Saline Smth Rnd Mod 475ml [id number] - [id number] Implanted:Qty: 1 on 06/01/2023 by Tucker Forrester MD at [facility] Right: Breast MENTOR FELICIANO 07/24/2023 [id number] / [id number] / [id number] Description:CHARGE REMOVED I MPLANT SUPPLIED BY [employer]-[facility] Breast Saline Smth Rnd Mod 475ml [id number] - [id number] Implanted:Qty: 1 on 06/01/2023 by Tucker Forrester MD at [facility] Left: Breast MENTOR FELICIANO 02/11/2027 [id number] / [id number] / [id number] Description:CHARGE REMOVED I MPLANT SUPPLIED BY [employer] [facility]-[facility]
--- OUTSIDE RECORDS SUMMARY | 2025-01-11 14:16 | XMS_ITS | Clinical Summary ---
Author Organization 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
[2025-01-11 14:27] VITALS: BP 106/74; PULSE 64; RESP 18; TEMP 36.7; O2SAT 100
--- NOTE | 2025-01-11 14:38 | ED_ITS ---
HPI - Skin/Abscess/Foreign Bdy General Chief complaint: Skin/Abscess/Foreign Body Stated complaint: Allergic Reaction Time Seen by Provider: 01/11/25 14:15 Source: patient Mode of arrival: ambulatory Limitations: no limitations History of Present Illness HPI narrative: Patient is a 49-year-old female that presents with bilateral eye swelling, redness, itching and watering since yesterday. Patient has severe allergies and has run out of her Flonase. Patient did not take Zyrtec today. 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 Denies any vision changes, shortness of breath or difficulty swallowing, fever, chills, nausea, vomiting, diarrhea. Has not changed any soaps or detergents. Related Data Home Medications ?Medication ?Instructions ?Recorded ?Confirmed ?Last Taken ?Type levonorgestrel (Mirena) See Rx Instructions .Route . COMPLEX 07/16/21 01/11/25 Unknown History progesterone micronized 100 mg 100 mg PO QAM 02/25/24 01/11/25 Unknown History capsule testosterone 50 mg/5 gram (1 %) 1 tube transdermal QAM 02/25/24 01/11/25 Unknown History transdermal gel Allergies Allergy/AdvReac Type Severity Reaction Status Date / Time No Known Allergies Allergy Verified 01/11/25 14:25 Review of Systems Review of Systems: All systems reviewed & are unremarkable except as noted in HPI and below Constitutional: Constitutional: Denies body ache(s), Denies chills, Denies fatigue, Denies fever(s), Denies headache(s), Denies malaise and Denies weakness Eyes: Eyes: Denies blurry vision, Denies irritation, Reports itchy eyes and Denies loss of vision ENT: Denies otalgia, Denies headache(s), Denies nasal discharge, Denies sinus pain and Denies sore throat Cardiovascular: Cardiovascular: Denies chest pain, Denies irregular heart rhythm and Denies dyspnea Respiratory: Respiratory: Denies dyspnea Gastrointestinal: Gastrointestinal: Denies abdominal pain, Denies melena, Denies hematochezia, Denies diarrhea, Denies nausea and Denies vomiting Musculoskeletal: Musculoskeletal: Denies back pain, Denies myalgias and Denies arthralgias Integumentary/Breasts: Skin/Breast: Denies pruritus and Denies rash Neurologic: Denies headache(s), Denies loss of vision and Denies weakness Psychiatric: Psychiatric: Reports no additional psychiatric complaints Endocrine: Endocrine: Denies fatigue PMFSH Past Medical History Medical History History of sinus problem Urinary tract infection Surgical History Surgical History H/O sinus surgery polyps removed and sinus cleaned out Social History Social History Smoking status: Never smoker Alcohol intake: current Substance use type: does not use Living arrangements: with family Gender identity (if verbalized by the patient): Female Comments At time of signature, agree with nursing past medical, surgical, social and family history. There is no relevant family history pertinent to the presenting complaint. Exam Const: General: cooperative, healthy appearing, comfortable, no acute distress and well nourished Nutritional Appearance: well nourished Orientation/consciousness: patient oriented x3 Limitations: no limitations HENMT: Head: normal to inspection, normocephalic and atraumatic Ears: hearing grossly normal bilaterally and external ears normal Face/Nose/Sinus: Normal external nose present, normal facial exam and face symmetric Face and sinus: normal facial exam and face symmetric Mouth: Yes lip normal Eyes: General: appearance normal, both eyes and all related structures Alignment and Position: alignment normal and position normal Periorbital: periorbital findings normal Eyelids: eyelid abnormality right upper eyelid erythema and swelling (mild) and left upper eyelid erythema and swelling (mild) Conjunctivae: conjunctivae normal Sclera: sclerae normal Pupils: Equal, round and reactive pupils present EOM: EOMs intact bilaterally Neck: Neck: normal visual inspection, full ROM and supple Chest: Chest palpation & inspection: normal inspection of the chest Resp: Effort & Inspection: normal respiratory effort and able to speak in complete sentences Auscultation: clear to auscultation bilaterally Cardio: Rate: regular rate Rhythm: regular rhythm Heart sounds: S1 normal heart sound present and S2 normal heart sound present GI: Inspection: normal to inspection Skin: General skin exam: normal color and no rashes or lesions noted Neuro: General: patient oriented x3 and moves all extremities Cranial nerves: Yes Equal, round and reactive pupils present Speech: normal speech Gait exam (Neuro): Normal gait present Extrem: General: normal to inspection, full ROM and no edema Psych: Appearance: grossly normal and well kempt Mental Status: mental status grossly normal Speech and movement: Normal speech and movement present Affect: normal affect Attitude: cooperative Thought process: Normal thought process present Course Course Emergency Course: Patient is aware of diagnosis, understands and agrees to treatment plan. Anticipatory guidance given. Patient agrees to follow-up as directed and is aware of reasons to seek care at the emergency department. Portions of this record may have been created with voice recognition software Level of Care: Express Care Visit Vital Signs Vital signs: Vital Signs Temperature 36.7 C 01/11/25 14:27 Pulse Rate 64 01/11/25 14:27 Respiratory Rate 18 01/11/25 14:27 Blood Pressure 106/74 01/11/25 14:27 Pulse Oximetry 100 01/11/25 14:27 Oxygen Delivery Room Air 01/11/25 14:27 Temperature 36.7 C 01/11/25 14:27 Pulse Rate 64 01/11/25 14:27 Respiratory Rate 18 01/11/25 14:27 Blood Pressure 106/74 01/11/25 14:27 Pulse Oximetry 100 01/11/25 14:27 Oxygen Delivery Room Air 01/11/25 14:27 Reviewed MDM - Skin/Abscess/Foreign Bdy MDM Narrative Medical decision making narrative: Pt well hydrated appearing, in no respiratory distress, hemodynamically stable. Recommend supportive care. The patient is stable at time of discharge the clinical impression was discussed and the patient was given the opportunity to ask questions, which were addressed as completely as possible given the information available at present. Anticipatory guidance and return to care precautions were discussed and the importance of primary care follow-up was stressed and encouraged. The patient voiced understanding of the plan, indications to return, and the need for follow-up. Exam findings show no acute concerns or changes Patient is appropriate for outpatient treatment and follow-up. Differential Diagnosis Differential diagnosis: Likely dermatophytosis, allergic reaction to drug, cellulitis and contact dermatitis Medical Records Attestation: I reviewed the patient's medical records. Discharge Plan Discharge Clinical Impression: Allergic reaction Qualifiers: Encounter type: initial encounter Qualified Code(s): T78.40XA - Allergy, unspecified, initial encounter Patient Disposition: Home Condition: Stable Instructions: General Allergic Reaction (ED) Additional Instructions: Take steroids per package instructions. Take Claritin, Zyrtec or Lacy in the morning along with Benadryl at night. Wash the skin thoroughly with soap and cool water as soon as possible. Scrub under the fingernails with a brush to prevent spreading to other parts of the body by touching or scratching. For some people, adding oatmeal to a bath, applying cool wet compresses, and applying calamine lotion may help to relieve itching IF symptoms get worse to follow up with your primary care provider or seek ER visit if you developing difficulty breathing, weakness, dizziness Patient Language: Mongolian Prescriptions: New methylprednisolone [Medrol (Isaias)] 4 mg tablets,dose pack See Rx Instructions .ROUTE .COMPLEX Qty: 21 0RF Rx Instructions: orally per package directions fluticasone propionate [Flonase Allergy Relief] 50 mcg/actuation spray,suspension 1 spray intranasal DAILY Qty: 16 0RF Rx Instructions: administer into each nostril No Action Mirena 20 mcg/24 hours (7 yrs) 52 mg Intrauterine Device See Rx Instructions .ROUTE .COMPLEX Rx Instructions: intrauterinely progesterone micronized 100 mg Capsule 100 mg PO QAM Rx Instructions: off 7 days; repeat cycle testosterone 50 mg/5 gram (1 %) Gel 1 tube TRANSDERMAL QAM Follow-up/Referrals: Alessandro,SHAMIR King [Primary Care Provider, Unknown] - 3 Days Time of Disposition: 14:53
== END 2025-01-11 14:55 | disposition home or self-care (01) ==
PROVIDERS: Emergency Provider Nurse Practitioner Family; PCP Nurse Practitioner
DX: T78.40XA Allergy, unspecified, initial encounter (principal)
CPT/HCPCS: 99213; G0463

== ENCOUNTER 2025-03-12 12:59 | Emergency (ER) | payer OTHER, SELFPAY ==
--- NOTE | 2025-03-12 13:01 | ED.FEMALEGU ---
HPI - Female Genitourinary General Chief complaint: Urogenital-Female Stated complaint: UTI Time Seen by Provider: 03/12/25 13:00 Source: patient Mode of arrival: ambulatory Limitations: no limitations History of Present Illness HPI Narrative: patient is a 49-year-old female who presents with 1 day burning, Urgency, frequency and odor with urination. Patient has been taking cranberry supplements. Denies any fever, chills, low back pain, nausea, vomiting, diarrhea. MD elicited complaint: dysuria Related Data Home Medications ?Medication ?Instructions ?Recorded ?Confirmed ?Last Taken ?Type levonorgestrel (Mirena) See Rx Instructions .Route .COMPLEX 07/16/21 01/11/25 Unknown History progesterone micronized 100 mg 100 mg PO QAM 02/25/24 01/11/25 Unknown History capsule testosterone 50 mg/5 gram (1 %) 1 tube transdermal QAM 02/25/24 01/11/25 Unknown History transdermal gel Allergies Allergy/AdvReac Type Severity Reaction Status Date / Time No Known Allergies Allergy Verified 03/12/25 13:09 Review of Systems Review of Systems: All systems reviewed & are unremarkable except as noted in HPI and below Constitutional: Constitutional: Denies chills, Denies fever(s), Denies headache(s), Denies malaise and Denies weakness Eyes: Eyes: Denies change in vision, Denies eye discharge and Denies irritation ENT: Denies otalgia, Denies headache(s), Denies nasal congestion, Denies nasal discharge, Denies sinus pain and Denies sore throat Cardiovascular: Cardiovascular: Denies chest pain, Denies edema, Denies palpitations and Denies dyspnea Respiratory: Respiratory: Denies cough and Denies dyspnea Gastrointestinal: Gastrointestinal: Denies abdominal pain, Denies diarrhea, Denies nausea and Denies vomiting Genitourinary: Genitourinary: Denies hematuria, Reports nocturia, Reports dysuria, Denies flank pain and Reports urinary urgency Musculoskeletal: Musculoskeletal: Denies back pain and Denies numbness Integumentary/Breasts: Skin/Breast: Denies pruritus and Denies rash Neurologic: Denies headache(s), Denies numbness and Denies weakness Psychiatric: Psychiatric: Reports no additional psychiatric complaints Endocrine: Endocrine: Denies palpitations PMFSH Past Medical History Medical History History of sinus problem Urinary tract infection Surgical History Surgical History H/O sinus surgery polyps removed and sinus cleaned out Social History Social History Smoking status: Never smoker Alcohol intake: current Substance use type: does not use Living arrangements: with family Gender identity (if verbalized by the patient): Female Comments At time of signature, agree with nursing past medical, surgical, social and family history. There is no relevant family history pertinent to the presenting complaint. Exam Const: General: cooperative, healthy appearing, comfortable, no acute distress and well nourished Nutritional Appearance: well nourished Orientation/consciousness: patient oriented x3 HENMT: Head: normocephalic and atraumatic Ears: external ears normal Face/Nose/Sinus: Normal external nose present, Normal nares present and normal facial exam Face and sinus: normal facial exam Eyes: General: appearance normal, both eyes and all related structures Pupils: Equal, round and reactive pupils present EOM: EOMs intact bilaterally Neck: Neck: normal visual inspection, full ROM and supple Chest: Chest palpation & inspection: normal inspection of the chest Resp: Effort & Inspection: normal respiratory effort and able to speak in complete sentences Cardio: Rate: regular rate Rhythm: regular rhythm GI: Inspection: normal to inspection GI Palp: No abdominal tenderness and Yes Soft to palpation : General: Yes no CVA tenderness Back/Spine/Pelvis: Back: no CVA tenderness Skin: General skin exam: normal color and no rashes or lesions noted Neuro: General: patient oriented x3 and moves all extremities Cranial nerves: Yes Equal, round and reactive pupils present Extrem: General: normal to inspection and full ROM Psych: Appearance: grossly normal and well kempt Course Course Emergency Course: Patient is aware of diagnosis, understands and agrees to treatment plan. Anticipatory guidance given. Patient agrees to follow-up as directed and is aware of reasons to seek care at the emergency department. Portions of this record may have been created with voice recognition software Level of Care: Express Care Visit Vital Signs Vital signs: Vital Signs Temperature 36.1 C L 03/12/25 13:05 Pulse Rate 71 03/12/25 13:05 Respiratory Rate 18 12/04/25 13:05 Blood Pressure 128/84 03/12/25 13:05 Pulse Oximetry 100 03/12/25 13:05 Oxygen Delivery Room Air 03/12/25 13:05 Temperature 36.1 C L 03/12/25 13:05 Pulse Rate 71 03/12/25 13:05 Respiratory Rate 18 03/12/25 13:05 Blood Pressure 128/84 03/12/25 13:05 Pulse Oximetry 100 03/12/25 13:05 Oxygen Delivery Room Air 03/12/25 13:05 [facility] Narrative Medical decision making narrative: Based on symptoms and positive point of care UA, patient will be treated with antibiotics. Pt well hydrated appearing, in no respiratory distress, hemodynamically stable. Recommend supportive care. The patient is stable at time of discharge the clinical impression was discussed and the patient was given the opportunity to ask questions, which were addressed as completely as possible given the information available at present. Anticipatory guidance and return to care precautions were discussed and the importance of primary care follow-up was stressed and encouraged. The patient voiced understanding of the plan, indications to return, and the need for follow-up. Exam findings show no acute concerns or changes Patient is appropriate for outpatient treatment and follow-up. Differential Diagnosis Differential Diagnosis: Differential diagnostic considerations for female urogenital? issues include urinary tract infection, bacterial vaginosis, cervicitis, ovarian cyst, vaginitis, STI exposure, ovarian torsion, ectopic , cyst of Bartholin?s gland, cystitis, dysmenorrhea.?? Medical Records I have reviewed the following patient records and this information was taken into consideration when formulating the assessment and plan.: previous clinic visits Lab Data [facility] Lab Attestation statement: I personally reviewed the patient's lab results. Labs: Lab Results 03/12/25 Range/Units 13:10 POC Urine Color Yellow POC Urine Clarity Clear POC Urine pH 7.0 POC Ur Specif Burnham 1.020 POC Urine Protein Negative (Negative) POC Ur Glucose (UA) Negative (Negative) POC Urine Ketones Negative (Negative) POC Urine Blood Trace (Negative) POC Urine Nitrite Negative (Negative) POC Urine Bilirubin Negative (Negative) POC Urine Urobilinogen 1.0 POC U Leukocyte Esteras 3+ (Negative) Discharge Plan Discharge Clinical Impression: UTI (urinary tract infection) Qualifiers: Urinary tract infection type: acute cystitis Hematuria presence: without hematuria Qualified Code(s): N30.00 - Acute cystitis without hematuria Patient Disposition: Home Condition: Stable Instructions: Urinary Tract Infection in Women (ED) Additional Instructions: We will send a urine culture to the lab, based on your symptoms and urine dip we will start treatment today. If culture comes back and bacteria is not susceptible to antibiotic, your prescription may change. Your symptoms should improve within a day of starting antibiotics, but you should finish all the antibiotic pills you get. Otherwise your infection might come back Continue with increased water intake. Take Tylenol or ibuprofen as needed for pain or fever. Follow-up with primary care provider for urine recheck or see ER visit if condition worsens with high fever, nausea, vomiting, severe back pain Patient Language: Maori Prescriptions: New sulfamethoxazole-trimethoprim 800-160 mg tablet 1 tablet PO Q12H 3 Days Qty: 6 0RF No Action Mirena 20 mcg/24 hours (7 yrs) 52 mg Intrauterine Device See Rx Instructions .ROUTE .COMPLEX Rx Instructions: intrauterinely progesterone micronized 100 mg Capsule 100 mg PO QAM Rx Instructions: off 7 days; repeat cycle testosterone 50 mg/5 gram (1 %) Gel 1 tube TRANSDERMAL QAM Follow-up/Referrals: Alessandro,SHAMIR King [Primary Care Provider, Unknown] - 3 Days Time of Disposition: 13:23
[2025-03-12 13:05] VITALS: BP 128/84; PULSE 71; RESP 18; TEMP 36.1; O2SAT 100
[2025-03-12 13:12] LABS: EDUAAPPEAR Clear; EDUABILI Negative (Negative); EDUABLOOD Trace (Negative); EDUACOLOR1 Yellow; EDUAGLUCOSE Negative (Negative); EDUAKETONE Negative (Negative); EDUALEUKO 3+ (Negative); EDUANITRATE Negative (Negative); EDUAPH 7.0; EDUAPROTEIN Negative (Negative); EDUASPGRAVITY 1.020; EDUAUROBILI 1.0
== END 2025-03-12 13:26 | disposition home or self-care (01) ==
PROVIDERS: Emergency Provider Nurse Practitioner Family; PCP Nurse Practitioner
DX: N30.00 Acute cystitis without hematuria (principal)
CPT/HCPCS: 81003; 87086; 87186; 99213; G0463

== ENCOUNTER 2025-03-28 11:53 | Emergency (ER) | payer OTHER, SELFPAY ==
--- NOTE | 2025-03-28 11:57 | ED.FEMALEGU ---
HPI - Female Genitourinary General Chief complaint: Urogenital-Female Stated complaint: UTI Source: patient, RN notes reviewed and old records reviewed Mode of arrival: ambulatory Limitations: no limitations History of Present Illness HPI Narrative: 49-year-old female presents to the [facility] with concerns for a UTI. Patient states she started with symptoms either or Sunday. Did take azo last night. Has had recent antibiotics due to UTIs. Per microbiology has grown out E coli. Last time was treated with Bactrim on March 12. 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 patient reports she will notify the cup machine operator, discussed that frequent UTIs need further evaluation. Related Data Home Medications ?Medication ?Instructions ?Recorded ?Confirmed ?Last Taken ?Type levonorgestrel (Mirena) See Rx Instructions .Route .COMPLEX 07/16/21 01/11/25 Unknown History progesterone micronized 100 mg 100 mg PO QAM 02/25/24 01/11/25 Unknown History capsule testosterone 50 mg/5 gram (1 %) 1 tube transdermal QAM 02/25/24 01/11/25 Unknown History transdermal gel Allergies Allergy/AdvReac Type Severity Reaction Status Date / Time No Known Allergies Allergy Verified 03/28/25 12:02 Review of Systems Review of Systems: All systems reviewed & are unremarkable except as noted in HPI and below Constitutional: Constitutional: Reports no additional constitutional complaints Cardiovascular: Cardiovascular: Reports no additional cardiovascular complaints, Denies chest pain and Denies dyspnea Respiratory: Respiratory: Reports no additional respiratory complaints, Denies chest congestion, Denies cough and Denies dyspnea Gastrointestinal: Gastrointestinal: Reports no additional gastrointestinal complaints Genitourinary: Genitourinary: Reports as per HPI Musculoskeletal: Musculoskeletal: Reports no additional musculoskeletal complaints Integumentary/Breasts: Skin/Breast: Reports system reviewed and no additional complaints, except as docu PMFSH Past Medical History Medical History History of sinus problem Urinary tract infection Surgical History Surgical History H/O sinus surgery polyps removed and sinus cleaned out Social History Social History Smoking status: Never smoker Alcohol intake: current Substance use type: does not use Living arrangements: with family Gender identity (if verbalized by the patient): Female Comments At the time of my signature, I reviewed and agree with the nursing past medical, surgical, social, and family history. There is no relevant family history pertinent to the patient complaint. Exam Const: General: cooperative, healthy appearing, comfortable, no acute distress, well developed, alert and well nourished Nutritional Appearance: well nourished Orientation/consciousness: patient oriented x3 Limitations: no limitations HENMT: Head: normal to inspection Mouth: Yes Normal oral and palatal mucosa present, Yes lip normal, Yes tongue normal and Yes moist mucous membranes Eyes: General: appearance normal, both eyes and all related structures Alignment and Position: alignment normal Neck: Neck: normal visual inspection, full ROM, no lymphadenopathy and no meningeal signs Chest: Chest palpation & inspection: normal inspection of the chest Resp: Effort & Inspection: normal respiratory effort and able to speak in complete sentences Auscultation: clear to auscultation bilaterally, no crackles, no rales, no rhonchi and no wheezes Cardio: Rate: regular rate GI: GI Palp: No abdominal tenderness : General: Yes no CVA tenderness Skin: General skin exam: normal color and no rashes or lesions noted Neuro: General: patient oriented x3, gait normal, moves all extremities and no meningeal signs Cognition (Neuro): normal cognition Speech: normal speech Gait exam (Neuro): Normal gait present Extrem: General: normal to inspection, full ROM, capillary refill normal and normal gait Psych: Appearance: grossly normal and well kempt Mental Status: mental status grossly normal Speech and movement: Normal speech and movement present and Clear speech present Affect: normal affect Attitude: cooperative Course Course Level of Care: Express Care Visit Vital Signs Vital signs: Vital Signs Temperature 98.2 F 03/28/25 12:03 Pulse Rate 67 03/28/25 12:03 Respiratory Rate 16 03/28/25 12:03 Blood Pressure 102/71 03/28/25 12:03 Pulse Oximetry 97 03/28/25 12:03 Oxygen Delivery Room Air 03/28/25 12:03 Temperature 98.2 F 03/28/25 12:03 Pulse Rate 67 03/28/25 12:03 Respiratory Rate 16 03/28/25 12:03 Blood Pressure 102/71 03/28/25 12:03 Pulse Oximetry 97 03/28/25 12:03 Oxygen Delivery Room Air 03/28/25 12:03 reviewed MDM MDM Narrative Medical decision making narrative: Patient sitting in exam room. Patient is nontoxic, unable to do a urine dip due to patient taking azo. Due to patient's symptoms, past medical history will cover with Augmentin, sent for culture. Encourage patient to follow-up with cup machine operator provider and hopefully urology. Patient verbalized understanding and states that she will notify her provider on Sunday for further evaluation. Discharge instructions reviewed with patient, as well as provided in writing per nursing staff. The instructions also include specific and strict return/GO TO THE ER as well as f/u information. All questions have been answered, and the patient deny any further questions with discharge and discharge plan. Some parts of this dictation were generated by voice recognition software and may contain typographical and/or grammatical inaccuracies. Differential Diagnosis Differential Diagnosis: Differential diagnostic considerations for female urogenital? issues include urinary tract infection, bacterial vaginosis, cervicitis, ovarian cyst, vaginitis, STI exposure, ovarian torsion, ectopic , cyst of Bartholin?s gland, cystitis, dysmenorrhea.?? Discharge Plan Discharge Clinical Impression: Dysuria Patient Disposition: Home Condition: Stable Instructions: Antibiotic Form, Urinary Tract Infection in Women (ED) Additional Instructions: Increased water intake Take Tylenol as needed for pain Take antibiotic as prescribed Today your urine dip showed a probability of a UTI. You have been prescribed an antibiotic. Your urine will be sent to our lab for a culture. If at that time a bacteria grows that is not covered by the antibiotic prescribed you will be notified. Follow-up with primary care. Is a very important that you discussed your frequent UTIs. You may need a referral to Urology. For new or worsening symptoms go directly to the emergency room Patient Language: Luxembourgish Prescriptions: New amoxicillin-pot clavulanate 875-125 mg tablet 1 tablet PO Q12H 5 Days Qty: 10 0RF No Action Mirena 20 mcg/24 hours (7 yrs) 52 mg Intrauterine Device See Rx Instructions .ROUTE .COMPLEX Rx Instructions: intrauterinely progesterone micronized 100 mg Capsule 100 mg PO QAM Rx Instructions: off 7 days; repeat cycle testosterone 50 mg/5 gram (1 %) Gel 1 tube TRANSDERMAL QAM Follow-up/Referrals: Alessandro,SHAMIR King [Primary Care Provider, Unknown] - 1 Week Clinical Impression: Dysuria Time of Disposition: 12:21
--- OUTSIDE RECORDS SUMMARY | 2025-03-28 12:00 | XMS_ITS | Clinical Summary ---
Author Organization [facility] Address [address] [place] [address] Phone Care Team Providers Care Sewage Screen Operator Name Role Phone Unavailable Primary Care [...] on file Legal Sex Female 2:50 AM AEROSPACE STRESS ENGINEER Gender Identity Not on file Sexual Orientation Not on file Last Filed Vital Signs Vital Sign Reading Time Taken Comments Blood Pressure 125/86 06/01/2023 4:05 PM AEROSPACE STRESS ENGINEER Pulse 84 06/01/2023 4:05 PM AEROSPACE STRESS ENGINEER Temperature 36.5 C (97.7 F) 06/01/2023 3:50 PM AEROSPACE STRESS ENGINEER Respiratory Rate 16 06/01/2023 4:05 PM AEROSPACE STRESS ENGINEER Oxygen Saturation 100% 06/01/2023 4:05 PM AEROSPACE STRESS ENGINEER Inhaled Oxygen Concentration - - Weight 65.3 kg (144 lb) 05/29/2023 8:47 AM AEROSPACE STRESS ENGINEER Height 167.6 cm (5' 6) 05/29/2023 8:47 AM AEROSPACE STRESS ENGINEER Body Mass Index 23.24 05/29/2023 8:47 AM AEROSPACE STRESS ENGINEER Plan of Treatment Health Maintenance Due Date [...] history exists Medical Devices Implanted Type Area Brick Kiln Burner Device Identifier Shelf Expiration Date Model / Serial / Lot Breast Saline Smth Rnd Mod 475ml [id number] - [id number] Implanted:Qty: 1 on 06/01/2023 by Tucker Forrester MD at [facility] Right: Breast MENTOR FEL[employer] 07/24/2023 [id number] / [id number] / [id number] Description:CHARGE REMOVED I MPLANT SUPPLIED BY DOCTORS OFFICE-RD Breast Saline Smth Rnd Mod 475ml [id number] - [id number] Implanted:Qty: 1 on 06/01/2023 by Tucker Forrester MD at [facility] Left: Breast [employer] 02/11/2027 [id number] / [id number] / [id number] Description:CHARGE REMOVED I MPLANT SUPPLIED BY [employer]CTORS OFFICE-RD
--- OUTSIDE RECORDS SUMMARY | 2025-03-28 12:00 | XMS_ITS | Encounter Summary ---
Author Organization [facility] Address [address] [place] [address] Care Team Providers Care Director Child Abuse Therapy Name Role Phone Candace Francois NP Primary Care Provider [phone] Encounter Details Date Type Department Care Team (Latest Contact Info) Description 03/12/2025 Scan [facility] INFO [facility] Scanned, Doc Med Group Social History Tobacco Use Types Packs/Day Years Used Date Smoking Tobacco: Never Passive Smoke Exposure: Never Smokeless Tobacco: Never Alcohol Use Standard Drinks/Week Comments Yes 6.7 (1 standard drink = 0.6 oz p ure alcohol) socially PHQ-2 Answer Date Recorded Patient Health Questionnaire-2 Score 0 01/01/2025 Comments No Sex and Gender Information Value Date Recorded Sex Assigned at Female 11/17/2024 2:49 PM CDT Legal Sex Female 5:23 PM CDT Gender Identity Female 01/01/2025 2:25 PM CDT Sexual Orientation Not on file documented as of this encounter Plan of Treatment Upcoming Encounters Date Type Department Care Team (Late st Contact Info) Description 09/01/2025 11:20 AM CDT Office Visit [facility] Medical [facility] Family Medicine [facility] [address] [facility] [address] [address] [address] [place] [address] Candace Francois NP [address] [place], [place] [address] documented as of this encounter Visit Diagnoses Not on filedocumented in this encounter Additional Health Concerns Assessment Noted Time PHQ-9 Depression Total Score: 3 09/25/20 25 2:24 PM CDT documented as of this encounter Care Teams Director Child Abuse Therapy Relationship Specialty Start Date End Date Candace Francois NP [address] [place] [address] PCP - General NURSE PRACTITIONER 12/22/20 documented as of this encounter
--- OUTSIDE RECORDS SUMMARY | 2025-03-28 12:00 | XMS_ITS | Encounter Summary ---
Author Organization [facility] Address [facility] [place] [address] Care Team Providers Care Strike Warfare/Missile Systems Officer Name Role Phone Candace Francois NP Primary Care Provider [phone] Encounter Details Date Type Department Care Team (Late Contact Info) Description 01/20/2022 Exerscript Message Enc [facility] Family Medicine [facility] [address] [facility] [address] [place] [id number] Vicky Monaco NP Referrral Social History [...] PM CDT Sexual Orientation Not on file COVID-19 Exposure Response Date Recorded In the last 10 days, have yo u been in contact with someone who was confirmed or suspected to have Coronavirus/COVID-19? No / Unsure 01/20/2022 9:02 AM CDT documented as of this encounter Plan of Treatment Upcoming Encounters Date Type Department Care Team (Late Contact Info) Description 09/01/2025 11:20 AM CDT Office Visit [facility] Medical [facility] Family Medicine - [place] [address] [facility] [address] [place] [address] Candace Francois NP [address] [place] [id number] documented as of this encounter Visit Diagnoses Not on filedocumented in this encounter Additional Health Concerns Infection Onset Date Last Indicated Resolved Time Respiratory Rule Out 12/23/2024 12/23/2024 025 3:35 PM CDT COVID-19 Confirmed 12/23/2024 12/23/2024 5 7:55 PM CDT Assessment Noted Time PHQ-9 Depression Total Score: 1 01/07/20 21 10:09 AM CDT documented as of this encounter Care Teams Strike Warfare/Missile Systems Officer Relationship Specialty Start Date End Date Candace Francois NP [address] [place] [address] PCP - General NURSE PRACTITIONER 12/22/20 documented as of this encounter
--- OUTSIDE RECORDS SUMMARY | 2025-03-28 12:00 | XMS_ITS | Encounter Summary ---
Author Organization [facility] Address [facility] [place] [address] Care Team Providers Care Engineering Mechanic Name Role Phone Candace Francois NP Primary Care Provider [phone] Encounter Details Date Type Department Care Team (Late st Contact Info) Description 11/18/2024 Therapy Plan [facility] Physical Therapy [address] [place] [address] Keiry Lundberg, PT [address] [place], [place] [id number] Social History Tobacco Use Types Packs/Day Years Used Date Smoking Tobacco: Never Passive Smoke Exposure: Never Smokeless Tobacco: Never Comments:The provider can pr ovide you with more information about quitting. Alcohol Use Standard Drinks/Week Comments Yes 6.7 (1 standard drink = 0.6 oz p ure alcohol) socially PHQ-2 Answer Date Recorded Patient Health Questionnaire-2 Score 0 11/17/2024 Comments No Sex and Gender Information Value Date Recorded Sex Assigned at Female 11/17/2024 2:49 PM CDT Legal Sex Female 5:23 PM CDT Gender Identity Female 01/01/2025 2:25 PM CDT Sexual Orientation Not on file documented as of this encounter Plan of Treatment Upcoming Encounters Date Type Department Care Team (Late st Contact Info) Description 09/01/2025 11:20 AM CDT Office Visit [facility] Medical [facility] Family Medicine - [place] [address] [address] Candace Francois NP [address] [place] [address] documented as of this encounter Visit Diagnoses Not on filedocumented in this encounter Additional Health Concerns Infection Onset Date Last Indicated Resolved Time Respiratory Rule Out 12/23/2024 12/23/2024 025 3:35 PM CDT COVID-19 Confirmed 12/23/2024 12/23/2024 5 7:55 PM CDT Assessment Noted Time PHQ-9 Depression Total Score: 5 09/06/19 24 3:08 PM CDT documented as of this encounter Care Teams Engineering Mechanic Relationship Specialty Start Date End Date Candace Francois NP [address] [place] [address] PCP - General NURSE PRACTITIONER 12/22/20 documented as of this encounter
--- OUTSIDE RECORDS SUMMARY | 2025-03-28 12:01 | XMS_ITS | Patient Health Record ---
Author Organization [facility] [place] ([address]) Address [address] [place] [address] Care Team Providers Care Nursing Manager Name Role Phone Candace Francois Primary Care Provider Jaiden Worley Unavailable [phone] Allergies No Known Allergies Reason For Referral [...] Status Risk Notes Problem Chronic allergic conjunctivitis (69182419) Other chronic allergic conjunctivitis (H10.45) Active confirmed Problem Allergic rhinitis caused by pollen (disorder) (55577039) Allergic rhinitis due to pollen (J30.1) Active confirmed Problem Allergic rhinitis caused by animal hair and dander (714188090920201) Allergic rhinitis due to animal (cat) (dog) hair and dander (J30.81) Active confirmed Problem Allergic rhinitis (82383036) Other allergic rhinitis (J30.89) Active confirmed Problem Allergic rhinitis caused by pollen (disorder) (38814252) Allergic rhinitis due to pollen (J30.1) Active confirmed Problem Allergic rhinitis caused by animal hair and dander (227533282962543) Allergic rhinitis due to animal (cat) (dog) hair and dander (J30.81) Active confirmed Problem Allergic rhinitis (03306865) Other allergic rhinitis (J30.89) Active confirmed Problem Chronic allergic conjunctivitis (10641249) Other chronic allergic conjunctivitis (H10.45) Active confirmed Problem Eruption of skin (592116687) Rash and other nonspecific skin eruption (R21) Active confirmed Plan Of Treatment No Information Insurance Providers Payer Name Payer Address Payer Phone Subscriber Number Group Number Insured Name Patient Relationship to Insured Coverage Start Date Coverage End Date [facility] [address] [place] [address] [phone] [id number] Ismael Gonzalez Spouse - patient is the [...]
--- OUTSIDE RECORDS SUMMARY | 2025-03-28 12:01 | XMS_ITS | Clinical Summary ---
Author Organization [facility] Address [address] [place] [address] Care Team Providers Care Maintenance Millwright Name Role Phone No, Pcp MOTION GRAPHICS ARTIST Primary Care Provider Unavailabl e Allergies No known active allergies Medications No known medications Social History Tobacco Use Types Packs/Day Years Used Date Smoking Tobacco: Never Assessed Comments No Sex and Gender Information Value Date Recorded Sex Assigned at Not on file Legal Sex Female 9:48 AM EDT Gender Identity Not on file Sexual Orientation Not on file Last Filed Vital Signs Vital Sign Reading Time Taken Comments Blood Pressure 110/76 07/16/2017 11:26 AM EDT Pulse 62 07/16/2017 11:26 AM EDT Temperature 36.4 C (97.5 F) 07/16/2017 11:26 AM EDT Respiratory Rate 16 07/16/2017 11:26 AM EDT Oxygen Saturation 96% 07/16/2017 11:26 AM EDT Inhaled Oxygen Concentration - - Weight - - Height - - Body Mass Index - - Plan of Treatment Not on file Medical Devices Not on file Insurance Care Teams Maintenance Millwright Relationship Specialty Start Date End Date No, Pcp, MOTION GRAPHICS ARTIST N/A Do not use PCP - General 07/16/17
--- OUTSIDE RECORDS SUMMARY | 2025-03-28 12:01 | XMS_ITS | Patient Health Record ---
Author Organization [facility] Address [address] [place], [place] [id number] Support Name Relationship Address Phone Marty Gonzalez Emergency Contact [address] [place], [place] [address] Heather Gonzalez Guarantor Unknown [phone] Reason For Referral No Information Medications Medication SIG (Take, Route, Frequency, Duration) Notes Start Date End Date Status Pyridium 200 mg tablet 1 tab orally tid; Duration: 3 days Active Septra DS 800 mg-160 mg tablet 1 tab(s) orally bid; Duration: 3 days Active Social History Tobacco Use: Social History Observation Description Date Details (start date - stop date) Never Smoker NA - NA Social History Social History Social Info Question Answer Notes Smoking Patient is a never smoker Additional Details Category Social Info Options Details Social History Recreational drug use No Problems No Known Problems Plan Of Treatment Future Test Test Name Order Date Urine Culture, Routine 06/16/2019 Insurance Providers Payer Name Payer Address Payer Phone Subscriber Number Group Number Insured Name Patient Relationship to Insured Coverage Start Date Coverage End Date [employer] [address] [place] [address] [id number] Heather Gonzalez Self - patient is the insured Medical (General) History Surgical History Surgery Date(Month/Year)
--- OUTSIDE RECORDS SUMMARY | 2025-03-28 12:01 | XMS_ITS | Clinical Summary ---
Author Organization [facility] Address [facility] [place] [address] Care Team Providers Care Plywood Matcher Name Role Phone Candace Francois NP Primary Care Provider [phone] Allergies No known active allergies Medications Multiple Vitamin (MULTIVITAMIN ADULT) Tab Take 1 tablet by mouth daily. Active PROGESTERONE OR Acti ve Testosterone 20 % Cream Active amphetamine-dextro amphetamine XR (ADDERALL XR) 10 MG 24 hr capsuleIndications :Attention deficit hyperactivity disorder (ADHD), combined type Take 1 capsule (10 mg total) by mouth every morning. 30 capsule Active Active Problems Problem Noted Date Diagnosed Date Attention deficit hyperactiv ity disorder (ADHD), combined type 01/01/2025 Overview (03/02/2025): Doing fine with Adderall XR 10mg daily. Denies side effects with use. Does not need to take every day. Has a lot of interviews coming up and when she starts a new job it will require her a lot of focus and concentration. ADHD - Evaluation confirmed by psychology - Difficulties with focus and concentration, particularly in work environment - Excels at multitasking - No sleep disturbances - Both children diagnosed with ADHD -Is interested to begin tx. -Last office visit ordered Vyvance but insurance did not cover. -Pt needs to try and fail a different stimulant such as Adderall. -Is going to be starting a new job in a couple weeks. Assessment & Plan (03/02/2025 3:28 PM LIFE SCIENCE TAXONOMIST): Pt to stay at same dose at this time. Patient does not take every day. She will follow-up for her UDS and CSA in the next week when she has taken her medication. No concerns at this time. Assessment & Plan (02/04/2025 3:03 PM CDT): With shared decision making will begin patient on Adderall XR 10 mg daily. Discussed how to take and side effects. Patient will follow-up in 1 month UDS and CSA at next visit. Assessment & Plan (01/01/2025 3:09 PM CDT): - Difficulty focusing and concentrating, affecting work and daily activities. - Discussed stimulant medications such as Adderall and Vyvanse, and non- stimulant options like Wellbutrin, Strattera, and guanfacine. - Prescription for Vyvanse will be provided. -Discussed how to take and side effects -IPDMP searched prior to prescribing. Pt to send a copy of recent evaluation to the office. Allergic conjunctivitis of both eyes 01/01/2025 Assessment & Plan (01/01/2025 3:09 PM CDT): - Symptoms include swollen eyelids, gritty sensation, and chronic dry eyes. 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 - Continue using eye drops and monitor symptoms. - Further evaluation if symptoms persist or worsen. Degeneration of intervertebr al disc of lumbar region with discogenic back pain and lower extremity pain 04/21/2024 Assessment & Plan (04/21/2024 8:22 PM LIFE SCIENCE TAXONOMIST): Recommendation at this time, we went over [...] Encounters Date Type Department Care Team Description 03/12/2025 Scan [facility] Scanned, Doc [facility] 03/02/2025 2:40 PM LIFE SCIENCE TAXONOMIST Office Visit [address] [place] [address] Candace Francois NP Attention Deficit Hyperactivity Disorder (Patient presents for follow up ADHD) 03/02/2025 Travel 02/04/2025 2:20 PM CDT Office Visit [address] [place] [address] Candace Francois NP Attention Deficit Hyperactivity Disorder (Patient presents for a 4 week follow up ADHD) 02/04/2025 Travel 01/11/2025 Scan [facility] INFO [facility] Scanned, Doc Med Group 01/02/[address] [place] [address] Candace Francois NP Prior Authorization (Vyvrayae) 01/01/2025 2:20 PM CDT Office Visit [address] [place] [address] Candace Francois NP Annual (Here for annual physical. Patient is wanting to discuss ADHD and some things involving her 's rating? ) 01/01/2025 Travel from Last 3 Months Immunizations Immunization Administration Dates Next Due Anthrax Vaccine 04/26/2007,04/12/2007,03/25/2007 Fluzone 6 Months+ Quad (0.5 mL Prefilled Syringe) 01/20/2022 H1N1 Injectable 2009 Influenza 03/26/2009 Hepatitis A (Havrix [address]) 12/12/2001,2001 Hepatitis B (Generic: Adult) 01/17/2008,04/26/19 08,03/25/2007 Influenza (FluMist) 02/09/2015, 4,01/10/2013,01/31,01/17/2008,02/25/2007,02/12/2006 ,05/04/2004 Influenza (Generic) 04/15/2024, 7,01/08/2016,01/01,12/29/2010,02/08/2009,03/28/2005 ,03/09/2003,02/11/2002,02/22/2001 Influenza Adult (Generic) 02/26/2020,,01/09/2018,06/11 MMR (MMRII) 05/28/2001 [...] Smokeless Tobacco: Never Tobacco Cessation:Counseling Given: No Alcohol Use Standard Drinks/Week Comments Yes 6.7 (1 standard drink = 0.6 oz p ure alcohol) socially PHQ-2 Answer Date Recorded Patient Health Questionnaire-2 Score 0 01/01/2025 Comments No Sex and Gender Information Value Date Recorded Sex Assigned at Female 11/17/2024 2:49 PM CDT Legal Sex Female 5:23 PM CDT Gender Identity Female 01/01/2025 2:25 PM CDT Sexual Orientation Not on file Last Filed Vital Signs Vital Sign Reading Time Taken Comments Blood Pressure 92/60 03/02/2025 2:48 PM LIFE SCIENCE TAXONOMIST Pulse 68 03/02/2025 2:48 PM LIFE SCIENCE TAXONOMIST Temperature 36.4 C (97.6 F) 03/02/2025 2:48 PM LIFE SCIENCE TAXONOMIST Respiratory Rate 10 03/02/2025 2:48 PM LIFE SCIENCE TAXONOMIST Oxygen Saturation 97% 03/02/2025 2:48 PM LIFE SCIENCE TAXONOMIST Inhaled Oxygen Concentration - - Weight 68.5 kg (151 lb) 03/02/2025 2:48 PM LIFE SCIENCE TAXONOMIST Height 167.6 cm (5' 6) 03/02/2025 2:48 PM LIFE SCIENCE TAXONOMIST Body Mass Index 24.37 03/02/2025 2:48 PM LIFE SCIENCE TAXONOMIST Plan of Treatment Upcoming Encounters Date Type Department Care Team (Late st Contact Info) Description 09/01/2025 11:20 AM CDT Office Visit [facility] - [place] [address] [facility] [address] [place] [address] Candace Francois, MARBLE CHIP TERRAZZO WORKER [address] [place] [address] Health Maintenance Due Date Last Done Comments Cervical Cancer Screening Pap Smear (Age 30 to 64) Every 3 Years 1977 Colorectal Cancer Screening Colonoscopy (10 Years) 1977 Hepatitis C 07/09/1995 Mammogram Screening 2017 DTaP, Tdap and Td Vaccines (2 - Td or Tdap) 11/27/2021 11/28/2011, 05/30/2001 Cervical Cancer Screening Pap with HPV Testing (Age 30 to 64) Every 5 Years 10/12/2024 10/13/2019, 08/18/2014, 10/30/2011, Additional history exists Cervical Cancer Screening with HPV 10/12/2024 COVID-19 Vaccine ( season) 2024 04/13/2021, 07/29/2020, 07/11/2020 Influenza Adult (#1) 2025 04/15/2024, 01/20/2022, 02/26/2020, Additional history exists Annual Physical 01/01/2026 01/01/2025, 01/06/2021 Hepatitis A Vaccines Aged Out 12/12/2001, 05/28/19 02 No longer eligible based on patient's age to complete this topic Meningococcal Vaccine Aged Out 03/09/2003 No conor sonam eligible based on patient's age to complete this topic Hepatitis B Vaccines Completed 01/17/2008, 04/26/2007, 03/25/2007 PHQ-2 (Physician [place]) Completed 01/01/2025 Meningococcal B Vaccine Aged Out No l onger eligible based on patient's age to complete this topic Pneumococcal Vaccine: Pediatrics (0 to 5 Years) and At-Risk Patients (6 to 49 Years) Aged Out No longer eligible based [...] Most Recently Relevant to Health Maintenance Insurance [facility] Care Teams Plywood Matcher Relationship Specialty Start Date End Date Candace Francois NP [address] [place] [id number] PCP - General NURSE PRACTITIONER 12/22/20
[2025-03-28 12:03] VITALS: BP 102/71; PULSE 67; RESP 16; TEMP 36.8; O2SAT 97
== END 2025-03-28 12:24 | disposition home or self-care (01) ==
PROVIDERS: Emergency Provider Nurse Practitioner; PCP Nurse Practitioner
DX: R30.0 Dysuria (principal)
CPT/HCPCS: 87086; 87186; 99213; G0463